=== PATIENT | female | born 1965 ===

== ENCOUNTER 2020-10-22 09:28 | Outpatient (REF) | payer OTHER, SELFPAY ==
[2020-10-23 12:52] LABS: BV Int Neg Control Negative (Negative); BV Int Pos Control Positive (Positive)
[2020-10-25 08:12] LABS: C. trachomatis RNA TMA NOT DETECTED (NOT DETECTED); N. gonorrhoeae RNA TMA NOT DETECTED (NOT DETECTED)
== END 2020-10-22 09:29 | disposition home or self-care (01) ==
LOC: HO.LAB 09:28
PROVIDERS: PCP Internal Medicine; Visit Provider Advanced Practice Midwife
DX: Z20.2 Contact with and (suspected) exposure to infections with a predominantly sexual mode of transmission (principal)
CPT/HCPCS: 87480; 87491; 87510; 87591; 87660

== ENCOUNTER → 2020-11-18 10:35 | Outpatient (BNVA) | payer OTHER, SELFPAY | PROVIDERS: PCP Internal Medicine; Visit Provider Internal Medicine Cardiovascular Disease | DX: I48.0 Paroxysmal atrial fibrillation (principal); R07.2 Precordial pain | CPT/HCPCS: 99202 ==

== ENCOUNTER → 2020-12-21 12:49 | Outpatient (REF) | payer OTHER, SELFPAY ==
--- NOTE | 2020-12-21 12:52 | CA_ITS ---
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 The visually estimated ejection fraction is between 60-65%. - No obvious valvular pathology seen on this study. Findings Left Ventricle Normal left ventricular cavity size. There is mildly increased left ventricular wall thickness. The left ventricular systolic function is normal. The visually estimated ejection fraction is between 60-65%. There is no evidence of regional wall motion abnormalities. Diastolic function is normal for age. E/E prime ratio is <8, consistent with normal filling pressures. Right Ventricle Normal right ventricular cavity size and systolic function. Atria The left atrium is normal in size. The right atrium is normal in size. Aortic Valve There is a normal trileaflet aortic valve. There is no aortic valve stenosis. There is no aortic valve regurgitation. Mitral Valve The mitral valve appears normal. There is trace mitral valve regurgitation. There is no mitral valve stenosis. Pulmonic Valve The pulmonic valve was not well visualized. There is trace pulmonic valve regurgitation. Tricuspid Valve Normal tricuspid valve structure. There is trace tricuspid valve regurgitation. The pulmonary artery systolic pressure is normal. Great Vessels The aortic annulus, sinuses of valsalva, and asc aorta are normal in size. Venous The inferior vena cava is normal in size and collapses greater than 50% with inspiration. Pericardium/Pleural There is no evidence of pericardial effusion. Prior Study Comparison No significant change compared to prior study dated: 04/18/2016. Recommendations, Care & Conclusions No obvious valvular pathology seen on this study. Measurements 2D Linear Measurements IVSd: 1.07 0.6-0.9/0.6-1.0 cm LVIDd: 3.98 3.9-5.3/4.2-5.9 cm LVIDd Index: 2.57 2.4-3.2/2.2-3.1 cm/m2 LVIDs: 2.52 2.0-3.6 cm LVPWd: 1.16 0.7-1.1 cm Ao Root: 3.50 2.1-3.5 cm LA Diam: 3.10 2.7-3.8/3.0-4.0 cm LAIDs Index: 2.00 1.5-2.3 cm/m2 LV Mass: 183.50 67-162/88-224 g LV Mass Index: 118.38 43-95/49-115 g/m2 LVOT Diam: 2.10 3.0+(-)1.3 cm Mitral Valve MV Pk E: 0.64 MV PK A: 0.94 MV Decel Time: 141.00 E/A: 0.70 E'Lateral: 9.38 E'Medial: 7.06 E/E' Med: 9.00 E/E' Lat: 6.80 PHT: 41.00 MVA PHT: 5.37 Decel [place]: 4.51 Aortic Valve AoV Pk Hao: 1.13 AoV Mn Hao: 0.78 AoV VTI: 0.22 AoV Pk Grad: 5.00 Aov Mn Grad: 3.00 CATIA Cont.VTI: 2.80 LVOT LVOT Pk Hao: 1.09 LVOT Mn Hao: 0.62 LVOT VTI: 0.18 LVOT Pk Grad: 5.00 LVOT Mn Grad: 2.00 LVOT Diam: 2.10 LVOT Area: 3.46 Diastolic Function MV Pk E: 0.64 MV Pk A: 0.94 E/A: 0.70 E'Medial: 7.06 E/E' Med: 9.00 E' Laterial: 9.38 E/E' Lat: 6.80 Tricuspid Valve TR Pk Hao: 1.83 TR Pk Grad: 13.00 RA Press: 3.00 RVSP: 16.00 Great Vessels Aorta Ao Root-2D: 3.50 2.0-3.7 cm Ao Asc: 2.80 2.1-3.4 cm Pulmonary Valve PV Pk Hao: 0.83 Peak PV Grad: 3.00 Updated in Other Vendor System with Status of Final Cristian Arteaga MD electronically signed on 12/22/2020 10:46:33 AM with status of Final
== END ==
LOC: HO.CARD 12:49
PROVIDERS: PCP Internal Medicine; Visit Provider Internal Medicine Cardiovascular Disease
DX: R07.2 Precordial pain (principal); I48.0 Paroxysmal atrial fibrillation
CPT/HCPCS: 93306

== ENCOUNTER → 2021-01-04 09:53 | Outpatient (REF) | payer OTHER, SELFPAY ==
--- NOTE | 2021-01-04 09:56 | CA_ITS ---
Acquisition Time: 2021-01-04 10:07:16 Total Exercise Time: 00:07:00 Test Indications: R07.2 - Precordial pain Medications: Protocol: KHUSHI Max HR: 160 BPM 96% of Pred: 165 BPM Max BP: 138/070 mmHG Max Work Load: 8.5 METS Exercise stress test using Khushi protocol total of 7 min. METS 8.50, TAPHR up to 96 %. Pt tolerated well, denies any anginal sx. EKG without arrhythmias, No ischemic changes seen during exercise or in recovery. Normotensive response to exercise. Test reviewed with Dr. Dover. Referred By: Bk Dover Overread By: Carmelina Ogden NP
== END ==
LOC: HO.CARD 09:53
PROVIDERS: PCP Internal Medicine; Visit Provider Internal Medicine Cardiovascular Disease
DX: R07.2 Precordial pain (principal); I48.0 Paroxysmal atrial fibrillation
CPT/HCPCS: 93016; 93017; 93018

== ENCOUNTER → 2021-01-13 09:36 | Outpatient (BNVA) | payer OTHER, SELFPAY | PROVIDERS: PCP Internal Medicine; Visit Provider Surgery | DX: C50.912 Malignant neoplasm of unspecified site of left female breast (principal) | CPT/HCPCS: 99212 ==

== ENCOUNTER → 2021-01-19 11:26 | Outpatient (BNVA) | payer OTHER, SELFPAY | PROVIDERS: PCP Internal Medicine; Visit Provider Advanced Practice Midwife ==

== ENCOUNTER → 2021-01-20 09:49 | Outpatient (BNVA) | payer OTHER, SELFPAY | PROVIDERS: PCP Internal Medicine; Visit Provider Nurse Practitioner Family | DX: R07.2 Precordial pain (principal); I48.0 Paroxysmal atrial fibrillation; F17.200 Nicotine dependence, unspecified, uncomplicated; Z71.6 Tobacco abuse counseling | CPT/HCPCS: 99212 ==

== ENCOUNTER 2021-03-02 14:09 | Outpatient (REF) | payer OTHER, SELFPAY ==
[2021-03-03 01:08] LABS: CT PCR NOT DETECTED (Not Detect.); NG PCR NOT DETECTED (Not Detect.)
[2021-03-06 06:07] LABS: HPV mRNA E6/E7 rflx Not Detected (Not Detected)
== END 2021-03-02 14:10 | disposition home or self-care (01) ==
LOC: HO.LAB 14:09
PROVIDERS: PCP Internal Medicine; Visit Provider Obstetrics & Gynecology
DX: Z12.4 Encounter for screening for malignant neoplasm of cervix (principal); Z11.51 Encounter for screening for human papillomavirus (HPV); Z11.3 Encounter for screening for infections with a predominantly sexual mode of transmission; N89.8 Other specified noninflammatory disorders of vagina; N93.0 Postcoital and contact bleeding
CPT/HCPCS: 87491; 87591; 87624; 88142; 99212

== ENCOUNTER 2021-03-26 09:49 | Outpatient (REF) | payer OTHER, SELFPAY ==
--- NOTE | ~2021-03-26 | MM_ITS ---
EXAMINATION: MM SCREENING DIGITAL BREAST TOMOSYNTHESIS, BILATERAL CLINICAL INFORMATION: Screening. Asymptomatic. Prior history left breast cancer, lumpectomy 09/25/2017 and subsequent radiation therapy. COMPARISON: Mammography: 09/10/2019, 01/10/2019, 06/21/2018, 09/25/2017, 09/08/2017, 08/28/2017 TECHNIQUE: Digital breast tomosynthesis is performed in both the craniocaudal and mediolateral oblique views along with computer-aided detection (CAD). Synthesized 2D images are generated from the tomosynthesis. FINDINGS: There are scattered areas of fibroglandular density (ACR BI-RADS breast composition Category b). There are post therapy changes on the left with mild reduced breast size, surgical clips, and stable scarring. Neither breast shows interval mass or architectural abnormality. There is stable intramammary node posterior upper outer right breast. Scattered bilateral isolated and grouped calcifications are again seen similar in number and distribution. There are no significant changes. MM/MM tomosynthesis screening BI IMPRESSION: No significant changes from prior studies. Post therapy changes left breast. ASSESSMENT: BI-RADS 2: Benign RECOMMENDATION: Routine annual mammography screening. This patient's information was entered into a reminder system with a target due date for their next mammogram.
== END 2021-03-26 09:50 | disposition home or self-care (01) ==
LOC: HO.MAMMO 09:49
PROVIDERS: Visit Provider Surgery
DX: Z12.31 Encounter for screening mammogram for malignant neoplasm of breast (principal)
CPT/HCPCS: 77063; 77067

== ENCOUNTER 2021-04-19 13:34 | Outpatient (REF) | payer OTHER, SELFPAY ==
--- NOTE | ~2021-04-19 | US_ITS ---
EXAMINATION: PELVIC ULTRASOUND CLINICAL INFORMATION: Bleeding COMPARISON: Previous pelvic ultrasound September 2019 TECHNIQUE: Transabdominal and transvaginal pelvic ultrasound was performed. Transvaginal exam was performed for better visualization of the and ovaries. FINDINGS: The uterus is retroverted and measures 8.6 x 3.7 x 4.4 cm in dimension. There is a 1.6 x 0.9 x 1 cm hypoechoic lesion anterior intramural uterine body suggestive of a fibroid. There is a small complex cyst with septation in the posterior uterine body adjacent to the endometrium. No other focal uterine lesion is seen. Endometrial thickness is normal measuring 0.5 cm. There are nabothian cysts in the cervix. The ovaries are normal-appearing. The right ovary measures 2.5 x 1.2 x 0.9 cm. Left ovary measures 2.1 x 1.1 x 1.1 cm. There is no fluid in the pelvis. US/US pelvic and transvaginal IMPRESSION: Small uterine fibroid. Small complex submucosal cyst in the anterior uterine body adjacent to the endometrium.
== END 2021-04-19 13:35 | disposition home or self-care (01) ==
LOC: HO.US 13:34
PROVIDERS: Visit Provider Obstetrics & Gynecology
DX: N93.0 Postcoital and contact bleeding (principal)
CPT/HCPCS: 76830; 76856

== ENCOUNTER → 2021-04-28 11:44 | Outpatient (BNVA) | payer OTHER, SELFPAY | PROVIDERS: PCP Internal Medicine; Visit Provider Obstetrics & Gynecology ==

== ENCOUNTER → 2021-05-03 11:02 | Outpatient (BNVA) | payer OTHER, SELFPAY | PROVIDERS: PCP Internal Medicine; Visit Provider Obstetrics & Gynecology | DX: N93.0 Postcoital and contact bleeding (principal) | CPT/HCPCS: 99212 ==

== ENCOUNTER 2021-05-07 10:42 | Day surgery (SDC) | payer OTHER, SELFPAY ==
--- NOTE | 2021-05-06 09:13 | HO.ANESPROP2 ---
Documented by User: Salud Edith 05/06/21 09:14 HPI - Anesthesia Eval Consult details Narrative: 56yo F for D&C Diagnostic Hysteroscopy,poss polypectomy/myomectomy and ECC PMFSH Active Problems Active Problems: All Active Problems (Updated 04/28/21 @ 12:12 by Henry Frias MD) Postcoital bleeding (Acute) Vaginal discharge (Acute) Invasive ductal carcinoma of left breast (Acute) Paroxysmal atrial fibrillation (Acute) Precordial chest pain (Acute) Potential exposure to STD (Acute) Well woman exam with routine gynecological exam (Acute) Past Medical History Medical History Depression Insomnia Invasive ductal carcinoma of left breast Paroxysmal atrial fibrillation Family History Family History Father Liver cancer Mother Heart disease Diabetes mellitus HTN (hypertension) CVD (cardiovascular disease) Brother HTN (hypertension) CVD (cardiovascular disease) Surgical History Surgical History History of lumpectomy of left breast Social History Social History Alcohol intake: never Patient Tobacco Use Status: Current everyday Tobacco user Tobacco use type: Cigarette Cigarettes Per Day: 4 Second Hand Smoke Exposure: No Use of substances other than those prescribed or required for medical reasons: No Are you DNR?: No Advance Directives: No Advance Directives Information Provided: Yes Advance Directives on File: No Gender identity: female Meds Allergies Allergy/AdvReac Type Severity Reaction Status Date / Time No Known Allergies Allergy Verified 05/03/21 11:21 [No Known Allergies*] Home Medications Medication Instructions Recorded Confirmed Last Taken Type ibuprofen 600 mg tablet mg PO 10/22/20 01/20/21 Unknown History sertraline 50 mg tablet 50 mg PO DAILY 10/22/20 01/20/21 Unknown History Exam Exam Date and Time: May 06, 2021 0913 Narrative Narrative: EKG 10/2020 SR, no acute ST/ T wave abn, rate 81. Stress 12/2020 exercise 7 min without anginal symptoms or EKG changes of ischemia. Echo 12/2020 EF 60-65%, no valve or wall motion abnormalities. Assessment and Plan Assessment Anesthesia Assessment: Chart Reviewed Documented by User: Steffi Gonsales 05/07/21 11:12 PMFSH Past Medical History Medical History Depression Insomnia Invasive ductal carcinoma of left breast Paroxysmal atrial fibrillation Family History Family History Father Liver cancer Mother Heart disease Diabetes mellitus HTN (hypertension) CVD (cardiovascular disease) Brother HTN (hypertension) CVD (cardiovascular disease) Surgical History Surgical History History of lumpectomy of left breast Social History Social History Alcohol intake: never Patient Tobacco Use Status: Current everyday Tobacco user Tobacco use type: Cigarette Cigarettes Per Day: 4 Second Hand Smoke Exposure: No Use of substances other than those prescribed or required for medical reasons: No Are you DNR?: No Advance Directives: No Advance Directives Information Provided: Yes Advance Directives on File: No Gender identity: female Meds Allergies Allergy/AdvReac Type Severity Reaction Status Date / Time No Known Allergies Allergy Verified 05/03/21 11:21 [No Known Allergies*] Home Medications Medication Instructions Recorded Confirmed Last Taken Type ibuprofen 600 mg tablet mg PO 10/22/20 01/20/21 Unknown History sertraline 50 mg tablet 50 mg PO DAILY 10/22/20 01/20/21 Unknown History Exam Airway Mallampati Class: II TM Dist: >3cm Neck ROM: Full Assessment and Plan Assessment Anesthesia Assessment: Anesthesia Plan Discussed and Chart Reviewed Final Anesthetic Review NPO: Yes ASA Class: III Final Preanesthetic Review: No Changes in Pt Med Stat, Meds/Allgs Chart Reviewed, Consent Obtained/Reviewed and Anes Risks/Benef Reviewed Patient Risk: Intermediate Procedure Risk: Low Assessment/Block/Sedation in SS: Assess/Block/Sedation-SS Anesthetic Plan Anesthetic Plan: MAC: Disposition: Standard PACU
[2021-05-07 10:55] VITALS: BP 111/62; PULSE 97; RESP 16; TEMP 36.4; O2SAT 98; BMI 28.0
[2021-05-07 11:03] LABS: UPreg QC Valid YES; Urine Pregnancy NEGATIVE (NEGATIVE)
[2021-05-07] MEDS: Lactated Ringers 1,000 ML 100 ML IVCONT (11:06)
--- NOTE | 2021-05-07 11:10 | MHC.SHP ---
Pre-Procedural Eval Section A Date of Service: 05/07/21 The patient is an INPATIENT: No Changes since office visit: No Cold of Flu in the past 2 weeks, No New Medical Problems, No Changes in Medication and No Patient answered all questions The History & Physical has been completed within 30 days and I have reviewed it.: Yes Section B Chief Complaint: postcoital and contact bleeding Allergies: Allergies Allergy/AdvReac Type Severity Reaction Status Date / Time No Known Allergies Allergy Verified 05/03/21 11:21 [No Known Allergies*] Plan Diagnosis/Plan: Unchanged I have reviewed the history and physical and performed a pertinent physical examination on my patient. No changes have occurred unless specified.
--- NOTE | 2021-05-07 11:43 | P.BOP_ITS ---
Brief Operative Note Date of Service: 05/07/21 Pre-op diagnosis: Postcoital bleeding Post-op diagnosis: same (Normal endometrial cavity/endocervical can) Procedure: Hysteroscopy D&C, ECC Surgeon: Henry Frias MD Anesthesia: MAC Was an Nuclear Chemistry Technician used for this Procedure?: No Estimated blood loss (mL): 0 Pathology: other (Endometrial Scrapping. Endocervical scrapings) Condition: stable Disposition: PACU
[2021-05-07 11:45] VITALS: BP 116/71; PULSE 85; RESP 16; TEMP 36.2; O2SAT 98
--- NOTE | 2021-05-07 11:45 | P.OP_ITS ---
Operative Note Operative Note Date of Service: 05/07/21 Narrative: Preop Diagnosis: Post coital bleeding, abnormal endometrium by ultrasound Operation: Diagnostic Hysteroscopy, Dilataion & Curettage and ECC Post Op Diagnosis: Normal endometrial cavity/endocervical cannot QBL: Minimal Anesthesia: MAC Surgeon: Henry Frias MD Senior C Developer: None Complication: None Pathology: Endometrial Scrapings, endocervical scraping Procedure: The patient was put in the dorsal lithotomy position, scrubbed, and draped in the usual manner. A sterile speculum was inserted in the patient's vagina. The anterior lip of the cervix was grasped with a single tooth tenaculum. The cervix was dilated up to 5 mm, then the scope was inserted in the patient's uterus. Inspection revealed normal endocervical/endometrial cavity. Sharp curettings was carrying the on followed by endocervical curettage. At the end of the procedure, all instruments were taken out of the patient uterine and vaginal cavity. The single tooth tenaculum was removed and homeostasis was assured using pressure,. The patient tolerated the procedure well and was transferred to the PACU in a stable condition.
[2021-05-07 12:00] VITALS: BP 116/77; PULSE 74; RESP 16; TEMP 36.2; O2SAT 100
[2021-05-07] MEDS: Acetaminophen 325 MG TABLET 650 MG PO (12:01)
== END 2021-05-07 12:54 ==
LOC: HO.SSS 10:43
PROVIDERS: PCP Internal Medicine; Visit Provider Obstetrics & Gynecology
PROC: 0UDB8ZX Extraction of Endometrium, Via Natural or Artificial Opening Endoscopic, Diagnostic (ICD-10-PCS; CPT 58558; principal; 2021-05-07 11:30)
DX: N93.0 Postcoital and contact bleeding (principal); N85.02 Endometrial intraepithelial neoplasia [EIN]; I48.0 Paroxysmal atrial fibrillation; Z85.3 Personal history of malignant neoplasm of breast; F17.210 Nicotine dependence, cigarettes, uncomplicated; Z79.899 Other long term (current) drug therapy
CPT/HCPCS: 58558; 81025; 88305; J1100; J2250; J2405; J3010

== ENCOUNTER → 2021-05-26 11:28 | Outpatient (BNVA) | payer OTHER, SELFPAY | PROVIDERS: PCP Internal Medicine; Visit Provider Obstetrics & Gynecology ==

== ENCOUNTER 2021-07-07 08:08 | Outpatient (REF) | payer OTHER, SELFPAY ==
--- NOTE | ~2021-07-07 | XR_ITS ---
EXAMINATION: XR CHEST CLINICAL INFORMATION: Back pain. COMPARISON: Chest CT dated 12/08/2015. TECHNIQUE: 2 views of the chest were obtained. FINDINGS: The lungs are clear. The cardiomediastinal silhouette is normal in size. There is no pleural effusion or pneumothorax. No acute osseous abnormality. XR/XR chest 2V IMPRESSION: No acute cardiopulmonary findings.
[2021-07-07 08:47] LABS: MANUAL DIFF FLAG NO
[2021-07-07 08:55] LABS: Basophils Percent Auto 0.6 % (0-2); Eosinophils Absolute Auto 0.2 X10*3/uL (0.0-0.4); Eosinophils Percent Auto 2.5 % (0-4); Hematocrit 35.6 % (37-47); Hemoglobin 12.2 g/dl (12.0-16.0); Imm Gran Abs Auto 0.03 X10*3/uL (0.00-0.03); Imm Gran Pct Auto 0.4 % (0.0-0.4); Immature Retic Fraction 8.5 % (3.0-15.9); Lymphocytes Absolute Auto 1.4 X10*3/uL (1.2-4.9); Lymphocytes Percent Auto 20.7 % (20-40); Mean Corpuscular HGB Conc 34.3 g/dl (31.0-35.0); Mean Corpuscular Hemoglobin 29.8 pg (27.0-33.0); Mean Platelet Volume 10.1 fL (9.4-12.3); Monocytes Absolute Auto 0.5 X10*3/uL (0.1-1.2); Monocytes Percent Auto 7.7 % (2-11); Neutrophils Absolute Auto 4.6 X10*3/uL (2.0-8.3); Neutrophils Percent Auto 68.1 % (45-73); Platelet Count 267 X10*3/uL (160-400); Red Blood Count 4.09 X10*6/uL (4.20-5.50); Red Cell Distribution Width 11.9 % (11.0-16.0); Retic HGB Equivalent 32.8 pg (30.0-35.0); Reticulocyte Percent 1.9 % (0.5-1.8); Reticulocytes Absolute 0.079 X10*6/uL (0.026-0.095); White Blood Count 6.7 X10*3/uL (4.8-10.8)
[2021-07-07 09:29] LABS: Alanine Aminotransferase 17 U/L (0-31); Albumin Level 4.1 g/dL (3.5-5.0); Alkaline Phosphatase 107 U/L (39-117); Anion Gap 11 (12-20); Aspartate Amino Transferase 15 U/L (5-31); Bilirubin Total 0.6 mg/dL (0.0-1.0); Blood Urea Nitrogen 12 mg/dL (9-16); Calcium 9.8 mg/dL (8.4-10.2); Carbon Dioxide 26 mmol/L (22-29); Chloride 108 mmol/L (96-108); Cholesterol 218 mg/dL; Estimated Glomerular Filt Rate > 60; Glucose Random 102 mg/dL (60-115); HDL Cholesterol 43 mg/dL; Iron 107 mcg/dL (30-160); LDL Cholesterol Calculated 139 mg/dl; Percent Iron Saturation 30 % (15-50); Potassium 4.4 mmol/L (3.3-5.1); Sodium 141 mmol/L (135-145); Total Iron Binding Capacity 358 mcg/dL (228-428); Total Protein 6.6 g/dL (6.5-8.0); Triglycerides 182 mg/dL; Unsaturated Iron Binding 251 ug/dL
[2021-07-07 09:37] LABS: Ferritin 55 ng/mL (10-250); Free T4 (Free Thyroxine) 0.91 ng/dL (0.71-1.85); Thyroid Stimulating Hormone 0.75 uIU/mL (0.32-4.0); Vitamin D 25-OH Total 28.5 ng/mL (>30)
[2021-07-07 09:53] LABS: Folate 15.2 ng/mL (> or = 4.0); Vitamin B12 916 pg/mL (200-900)
== END 2021-07-07 08:09 | disposition home or self-care (01) ==
LOC: HO.LAB 08:08
PROVIDERS: PCP Internal Medicine; Visit Provider Internal Medicine
DX: M54.6 Pain in thoracic spine (principal); E78.00 Pure hypercholesterolemia, unspecified
CPT/HCPCS: 36415; 71046; 80053; 80061; 82306; 82607; 82728; 82746; 83540; 84439; 84443; 85025; 85045

== ENCOUNTER → 2021-11-10 08:16 | Outpatient (BNVA) | payer OTHER, SELFPAY | PROVIDERS: PCP Internal Medicine; Visit Provider Advanced Practice Midwife ==

== ENCOUNTER 2022-03-30 08:08 | Outpatient (REF) | payer OTHER, SELFPAY ==
--- NOTE | ~2022-03-30 | MM_ITS ---
EXAMINATION: MM SCREENING DIGITAL BREAST TOMOSYNTHESIS, BILATERAL CLINICAL INFORMATION: Screening. Asymptomatic. Status post left breast lumpectomy. COMPARISON: Mammography: April 03, 2021 and studies dating back to December 11, 2015 TECHNIQUE: Digital breast tomosynthesis is performed in both the craniocaudal and mediolateral oblique views along with computer-aided detection (CAD). Synthesized 2D images are generated from the tomosynthesis. FINDINGS: There are scattered areas of fibroglandular density (ACR BI-RADS breast composition Category b). There are no new significant masses, abnormal calcifications, or other abnormalities. Architecture distortion from previous left breast lumpectomy again seen. MM/MM tomosynthesis screening BI IMPRESSION: There are no significant changes from prior study. ASSESSMENT: BI-RADS 2: Benign RECOMMENDATION: Routine annual mammography screening. This patient's information was entered into a reminder system with a target due date for their next mammogram.
== END 2022-03-30 08:09 | disposition home or self-care (01) ==
LOC: HO.MAMMO 08:08
PROVIDERS: Visit Provider Internal Medicine
DX: Z12.31 Encounter for screening mammogram for malignant neoplasm of breast (principal)
CPT/HCPCS: 77063; 77067

== ENCOUNTER 2022-07-01 08:45 | Outpatient (REF) | payer OTHER, SELFPAY ==
--- NOTE | ~2022-07-01 | XR_ITS ---
EXAMINATION: XR KNEE, LEFT CLINICAL INFORMATION: Left knee pain. COMPARISON: None TECHNIQUE: AP and lateral views of the left knee. FINDINGS: Mild medial compartment joint space narrowing with tiny marginal osteophytes. No acute fracture or dislocation. No concerning lytic or blastic osseous lesion. No significant joint effusion. XR/XR knee LT 2V IMPRESSION: Mild medial compartment arthrosis.
--- NOTE | ~2022-07-01 | XR_ITS ---
EXAMINATION: XR HAND, RIGHT CLINICAL INFORMATION: Finger pain. COMPARISON: None TECHNIQUE: PA, lateral, and oblique views of the right hand. FINDINGS: No acute fracture or dislocation. Normal carpal alignment. No significant joint space narrowing. Tiny marginal osteophytes within the distal interphalangeal joints. No osseous erosion. No abnormal soft tissue calcification. XR/XR hand RT 2V IMPRESSION: Minimal degenerative arthritis within the distal interphalangeal joints.
[2022-07-01 09:04] LABS: MANUAL DIFF FLAG NO
[2022-07-01 09:20] LABS: Basophils Percent Auto 0.6 % (0-2); Eosinophils Absolute Auto 0.1 X10*3/uL (0.0-0.4); Eosinophils Percent Auto 1.9 % (0-4); Hematocrit 34.7 % (37.0-47.0); Imm Gran Abs Auto 0.06 X10*3/uL (0.00-0.03); Imm Gran Pct Auto 0.9 % (0.0-0.4); Lymphocytes Absolute Auto 1.5 X10*3/uL (1.2-4.9); Lymphocytes Percent Auto 22.4 % (20-40); Mean Corpuscular HGB Conc 34.6 g/dl (31.0-35.0); Mean Corpuscular Hemoglobin 29.3 pg (27.0-33.0); Mean Corpuscular Volume 84.6 fL (80.0-98.0); Mean Platelet Volume 10.2 fL (9.4-12.3); Monocytes Absolute Auto 0.5 X10*3/uL (0.1-1.2); Monocytes Percent Auto 7.9 % (2-11); Neutrophils Absolute Auto 4.5 x10*3/uL (2.0-8.3); Neutrophils Percent Auto 66.3 % (45-73); Platelet Count 270 X10*3/uL (160-400); Red Cell Distribution Width 11.6 % (11.0-16.0); White Blood Count 6.7 X10*3/uL (4.8-10.8)
[2022-07-01 09:32] LABS: Estimated Average Glucose 111 mg/dL; Hemoglobin A1c % 5.5 %
[2022-07-01 09:33] LABS: Alanine Aminotransferase 18 U/L (0-31); Albumin Level 4.1 g/dL (3.5-5.0); Alkaline Phosphatase 111 U/L (39-117); Anion Gap 12 (12-20); Aspartate Amino Transferase 18 U/L (5-31); Bilirubin Total 0.3 mg/dL (0.0-1.0); Blood Urea Nitrogen 12 mg/dL (9-16); Calcium 9.4 mg/dL (8.4-10.2); Carbon Dioxide 26 mmol/L (22-29); Chloride 104 mmol/L (96-108); Cholesterol 203 mg/dL; Estimated Glomerular Filt Rate > 60; Glucose Random 101 mg/dL (60-115); HDL Cholesterol 40 mg/dL; LDL Cholesterol Calculated 119 mg/dl; Potassium 4.3 mmol/L (3.3-5.1); Sodium 138 mmol/L (135-145); Total Protein 6.7 g/dL (6.5-8.0); Triglycerides 224 mg/dL
[2022-07-01 09:55] LABS: Free T4 (Free Thyroxine) 1.02 ng/dL (0.71-1.85); Thyroid Stimulating Hormone 0.72 uIU/mL (0.32-4.0); Vitamin D 25-OH Total 36.9 ng/mL (>30)
[2022-07-01 10:15] LABS: Folate 17.8 ng/mL (> or = 4.0); Vitamin B12 462 pg/mL (200-900)
== END 2022-07-01 08:46 | disposition home or self-care (01) ==
LOC: HO.XRAY 08:45
PROVIDERS: PCP Internal Medicine; Visit Provider Internal Medicine
DX: M79.644 Pain in right finger(s) (principal); M25.562 Pain in left knee; K21.9 Gastro-esophageal reflux disease without esophagitis; R73.02 Impaired glucose tolerance (oral); E78.00 Pure hypercholesterolemia, unspecified
CPT/HCPCS: 36415; 73120; 73560; 80053; 80061; 82306; 82607; 82746; 83036; 84439; 84443; 85025

== ENCOUNTER 2022-08-09 21:36 | Emergency (ER) | payer OTHER, SELFPAY ==
--- NOTE | ~2022-08-09 | XR_ITS ---
EXAMINATION: XR CHEST CLINICAL INFORMATION: Chest pain COMPARISON: 07/07/2021 TECHNIQUE: Frontal view of the chest was obtained. FINDINGS: No significant abnormality is noted involving the heart, lungs, mediastinum, bony thorax or soft tissues. XR/XR chest 1V IMPRESSION: Unremarkable examination.
[2022-08-09 22:16] VITALS: BP 175/106; PULSE 91; RESP 16; TEMP 36.6; O2SAT 99; BMI 28.3
--- NOTE | 2022-08-09 22:20 | ECG_ITS ---
Test Reason : R/O CARDIAC Blood Pressure : / mmHG Vent. Rate : 086 BPM Atrial Rate : 086 BPM P-R Int : 126 ms QRS Dur : 084 ms QT Int : 352 ms P-R-T Axes : 046 014 016 degrees QTc Int : 421 ms Normal sinus rhythm Normal ECG No significant changes seen Referred By: Generic ED Physician Electronically Signed By:ZENY TORRES MD
[2022-08-09 22:43] LABS: MANUAL DIFF FLAG NO
[2022-08-09 22:45] LABS: Basophils Absolute Auto 0.1 X10*3/uL (0.0-0.2); Basophils Percent Auto 0.6 % (0-2); Eosinophils Absolute Auto 0.1 X10*3/uL (0.0-0.4); Eosinophils Percent Auto 1.1 % (0-4); Hematocrit 39.5 % (37.0-47.0); Hemoglobin 13.3 g/dl (12.0-16.0); Imm Gran Abs Auto 0.04 X10*3/uL (0.00-0.03); Imm Gran Pct Auto 0.4 % (0.0-0.4); Lymphocytes Absolute Auto 1.8 X10*3/uL (1.2-4.9); Lymphocytes Percent Auto 18.1 % (20-40); Mean Corpuscular HGB Conc 33.7 g/dl (31.0-35.0); Mean Corpuscular Hemoglobin 28.8 pg (27.0-33.0); Mean Corpuscular Volume 85.5 fL (80.0-98.0); Mean Platelet Volume 9.6 fL (9.4-12.3); Monocytes Absolute Auto 0.6 X10*3/uL (0.1-1.2); Neutrophils Absolute Auto 7.2 x10*3/uL (2.0-8.3); Neutrophils Percent Auto 73.8 % (45-73); Platelet Count 274 X10*3/uL (160-400); Red Blood Count 4.62 X10*6/uL (4.20-5.50); Red Cell Distribution Width 11.8 % (11.0-16.0); White Blood Count 9.8 X10*3/uL (4.8-10.8)
[2022-08-09 22:57] LABS: Anion Gap 20 (12-20); Blood Urea Nitrogen 15 mg/dL (9-16); Calcium 9.8 mg/dL (8.4-10.2); Carbon Dioxide 19 mmol/L (22-29); Chloride 106 mmol/L (96-108); Creatinine Clr Calc Pharmacy 66.9; Estimated Glomerular Filt Rate > 60; Glucose Random 103 mg/dL (60-115); Potassium 3.9 mmol/L (3.3-5.1); Sodium 141 mmol/L (135-145)
[2022-08-09 23:05] LABS: Troponin-I High Sensitivity < 3.5 ng/L (<3.5-17.0)
== END 2022-08-10 01:40 | disposition left against medical advice (07) ==
PROVIDERS: Emergency Provider Emergency Medicine
DX: R07.89 Other chest pain (principal); M54.50 Low back pain, unspecified; R10.9 Unspecified abdominal pain; Z79.899 Other long term (current) drug therapy
CPT/HCPCS: 36415; 71045; 80048; 84484; 85025; 93005; 99283

== ENCOUNTER → 2022-08-22 09:59 | Outpatient (REF) | payer OTHER, SELFPAY ==
--- NOTE | 2022-08-22 10:02 | CA_ITS ---
Acquisition Time: 2022-08-22 10:21:10 Total Exercise Time: 00:08:01 Test Indications: PRECORDIAL PAIN Medications: Protocol: KHUSHI Max HR: 171 BPM 104% of Pred: 164 BPM Max BP: 146/088 mmHG Max Work Load: 10.1 METS Exercise stress test with exercise with exercise 8 min 1 sec of Khushi protocol, achieing 104% MPHR, 10.1 METs without anginal symptoms, with isolated PVC, with normotensive response to exercise, without EKG changes meeting criteria for ischemia, with minimal J point depression with upsloping STs. Test reviewed with Dr Arteaga Referred By: Marlyn Krause Overread By: NABOR HENAO
== END ==
LOC: HO.CARD 09:59
PROVIDERS: PCP Internal Medicine; Visit Provider Internal Medicine
DX: R07.2 Precordial pain (principal)
CPT/HCPCS: 93017

== ENCOUNTER 2022-11-14 09:04 | Outpatient (REF) | payer OTHER, SELFPAY ==
[2022-11-15 13:45] LABS: BV Int Neg Control Negative (Negative); BV Int Pos Control Positive (Positive)
== END 2022-11-14 09:05 | disposition home or self-care (01) ==
LOC: HO.LAB 09:04
PROVIDERS: PCP Internal Medicine; Visit Provider Advanced Practice Midwife
DX: Z01.419 Encounter for gynecological examination (general) (routine) without abnormal findings (principal); R10.2 Pelvic and perineal pain; Z80.3 Family history of malignant neoplasm of breast; Z85.3 Personal history of malignant neoplasm of breast
CPT/HCPCS: 87480; 87510; 87660

== ENCOUNTER 2022-12-02 00:41 | Emergency (ER) | payer OTHER, SELFPAY ==
--- NOTE | ~2022-12-02 | CT_ITS ---
EXAMINATION: CT ABDOMEN AND PELVIS WITHOUT CONTRAST CLINICAL INFORMATION: Right-sided abdominal pain with elevated white blood cell count. COMPARISON: None TECHNIQUE: Multidetector volumetric imaging was performed from the superior aspect of the liver through the pubic symphysis. Sagittal and coronal reformatted images were obtained on the technologist's workstation. This CT examination was performed using dose optimization techniques as appropriate, variously including the following: *Automated exposure control *Adjustment of mA and/or kV according to patient size (this includes techniques or standardized protocols for targeted exams where dose is matched to indication/reason for exam; i.e. extremities or head) *Use of iterative reconstruction technique DLP: 430 mGy-cm FINDINGS: LUNG BASES: The visualized lung bases are unremarkable. LIVER, GALLBLADDER, AND BILIARY TREE: The liver is normal in size, shape, and attenuation. No focal hepatic lesion or biliary ductal dilatation is present. The gallbladder is unremarkable with no evidence of radiopaque gallstones, gallbladder wall thickening, or obvious pericholecystic inflammatory changes. PANCREAS: Unremarkable. SPLEEN: Unremarkable. ADRENAL GLANDS: Unremarkable. KIDNEYS AND URETERS: The kidneys are normal in size, shape, and attenuation. No hydronephrosis, hydroureter, or calculi seen. No perinephric stranding. BLADDER: Unremarkable. GASTROINTESTINAL TRACT: Fluid-filled small bowel at the upper limits of normal in caliber. There is a gradual transition to normal caliber within the distal ileum in the right pelvis, as seen on series 3, images 52-58, and coronal images 45-50. Fluid also present within the right colon. The transverse and left colon is decompressed. Small sliding-type hiatal hernia. Stomach otherwise unremarkable. ABDOMINAL WALL: No significant hernia is appreciated. LYMPH NODES: Normal. VASCULAR: Unremarkable. PELVIC VISCERA: Uterus and ovaries unremarkable. Small pelvic free fluid. OSSEOUS STRUCTURES: Unremarkable. CT/CT abdomen pelvis wo IV con IMPRESSION: Fluid-filled small bowel at the upper limits of normal in caliber may reflect a partial bowel obstruction at the level of the distal ileum, versus enteritis and/or ileus. Fleischner guidelines were followed.
[2022-12-02 00:50] VITALS: BP 169/93; PULSE 91; RESP 17; TEMP 37.1; O2SAT 97
[2022-12-02 00:52] VITALS: BP 160/100; PULSE 99; RESP 20; O2SAT 98; BMI 27.8
--- NOTE | 2022-12-02 00:55 | ED_ITS ---
HPI - Abdominal Pain General Chief Complaint: Abdominal Pain Stated Complaint: ABD PAIN N/V X1HOUR Time Seen by Provider: 12/02/22 00:54 Source: patient Mode of arrival: ambulatory Limitations: no limitations History of Present Illness HPI narrative: Patient history of anxiety with multiples CT scan the past negative comes here with diffuse abdominal pain with nausea and vomiting prior to arrival. Patient vomited about 5 times has diffuse abdominal pain radiating to the right flank area, no fever no chills patient has similar complaints in the past no urinary complaints had loose bowels yesterday no other family member sick no seafood intake no recent travel Related Data Home Medications Medication Instructions Recorded Confirmed sertraline 50 mg tablet 50 mg PO DAILY 10/22/20 07/01/22 ibuprofen 600 mg tablet mg PO .QD PRN pain 06/25/21 07/01/22 lorazepam 0.5 mg tablet 0.5 mg PO BEDTIME PRN 06/25/21 07/01/22 zolpidem 5 mg tablet (Ambien) 5 mg PO BEDTIME PRN 05/17/22 07/01/22 omeprazole 20 mg capsule,delayed 20 mg PO DAILY 07/01/22 07/01/22 release Previous Rx's Medication Instructions Recorded sennosides 8.6 mg-docusate sodium 2 tab-cap PO BEDTIME #60 tabs 06/06/22 50 mg tablet (Senna-S) dicyclomine 20 mg tablet 20 mg PO QID PRN abdominal pain 12/02/22 #20 tabs ondansetron 4 mg disintegrating 4 mg PO Q6-8H PRN nausea and 12/02/22 tablet vomiting #7 tabs Allergies Allergy/AdvReac Type Severity Reaction Status Date / Time No Known Allergies Allergy Verified 11/14/22 09:09 [No Known Allergies*] Review of Systems Review of Systems Yes all other systems are reviewed and are negative [facility] Past Medical History Medical History Carpal tunnel syndrome of left wrist Generalized anxiety disorder GERD (gastroesophageal reflux disease) Hypercholesterolemia Insomnia Invasive ductal carcinoma of left breast Lumbar degenerative disc disease Neuropathy of left ulnar nerve at wrist Paroxysmal atrial fibrillation Recurrent major depression Renal calculus, left Right ovarian cyst Stress incontinence Tobacco abuse Tubular adenoma of colon Surgical History History of lumpectomy of left breast Family History Family History Father Liver cancer Substance abuse Mother Heart disease Diabetes mellitus HTN (hypertension) CVD (cardiovascular disease) Brother HTN (hypertension) CVD (cardiovascular disease) Substance abuse Sister Breast cancer CVD (cardiovascular disease) Social History Social History Housing: Apartment Alcohol intake: never Patient Tobacco Use Status: Former Tobacco user Tobacco use type: Cigarette Cigarettes Per Day: 4 Years Smoked: quit 05/2022 Smoked in Last 30 Days: Yes e-Cigarette/Vaping Use: Never Used Second Hand Smoke Exposure: No Use of substances other than those prescribed or required for medical reasons: No Advance Directives: No Advance Directives Information Provided: No Patient : No service: No Current occupational status: employed Gender identity: Female Cognitive needs: No Hearing needs: No Vision needs: Yes Physical Exam ED Vital Signs: Vital Signs - 24 hr 12/02/22 00:52 12/02/22 00:50 12/02/22 02:13 Temperature 98.7 F Pulse Rate 99 91 82 Respiratory Rate 20 17 20 Blood Pressure 160/100 H 169/93 H 153/86 H Pulse Oximetry 98 97 98 Oxygen Delivery Method Room Air Room Air Room Air 12/02/22 04:28 Temperature Pulse Rate 73 Respiratory Rate 15 Blood Pressure 119/53 L Pulse Oximetry 98 Oxygen Delivery Method Room Air BMI result Body Mass Index 27.8 Appearance: Alert. Oriented X3. No acute distress. Eyes: No pallor or icterus ENT: Pharynx normal. Oral Mucosa moist Neck: Normal inspection. Neck supple. CVS: Normal heart rate and rhythm. Pulses normal. Respiratory: No respiratory distress. Equal air entry bilateral, no wheezing/rales/rhonchi Abdomen: Soft diffuse tenderness no rebound or guarding. Bowel sounds are present, no mass palpable, no CVA tenderness Skin: Skin warm and dry. Normal skin color. Normal skin turgor. Extremities: No lower extremity edema. No calf tenderness Neuro: Oriented X 3. No motor deficit. Medical Decision Making Medical Decision Making MDM Narrative: Patient with gastroenteritis CT scan essentially negative showing some dilated bowel loops secondary to inflammation patient feeling much better now taking p.o. fluids discharge patient home Differential Diagnosis Colitis/enteritis/diverticulitis/pancreatitis/kidney stone/UTI Lab Data [facility] Lab Attestation statement: I reviewed the patient's lab results. 12/02/22 00:57 12/02/22 00:57 Labs: Lab Results 12/02/22 12/02/22 Range/Units 00:57 00:57 WBC 15.4 H (4.8-10.8) X10*3/uL RBC 4.75 (4.20-5.50) X10*6/uL Hgb 13.6 (12.0-16.0) g/dl Hct 39.0 (37.0-47.0) % MCV 82.1 (80.0-98.0) fL MCH 28.6 (27.0-33.0) pg MCHC 34.9 (31.0-35.0) g/dl RDW 12.2 (11.0-16.0) % Plt Count 286 (160-400) X10*3/uL MPV 9.8 (9.4-12.3) fL Immature Gran % (Auto) 0.6 H (0.0-0.4) % Neut % (Auto) 79.9 H (45-73) % Lymph % (Auto) 12.8 L (20-40) % [place] % (Auto) 5.1 (2-11) % Eos % (Auto) 1.2 (0-4) % Baso % (Auto) 0.4 (0-2) % Lymph # (Auto) 2.0 (1.2-4.9) X10*3/uL [place] # (Auto) 0.8 (0.1-1.2) X10*3/uL Eos # (Auto) 0.2 (0.0-0.4) X10*3/uL Baso # (Auto) 0.1 (0.0-0.2) X10*3/uL Abs Immat Gran (auto) 0.09 H (0.00-0.03) X10*3/uL Absolute Neuts (auto) 12.3 H (2.0-8.3) x10*3/uL Absolute Nucleated RBC 0.000 (0.0-0.012) X10*3/uL Nucleated RBC % (auto) 0.0 (0.0-0.2) /100WBC Sodium 142 (135-145) mmol/L Potassium 4.1 (3.3-5.1) mmol/L Chloride 106 (96-108) mmol/L Carbon Dioxide 22 (22-29) mmol/L Anion Gap 18 (12-20) BUN 16 (9-16) mg/dL Creatinine 0.95 (0.5-1.4) mg/dL Estim Creat Clear Calc 53.1 Estimated GFR > 60 Random Glucose 131 H (60-115) mg/dL Calcium 10.0 (8.4-10.2) mg/dL Total Bilirubin 0.4 (0.0-1.0) mg/dL AST 25 (5-31) U/L ALT 20 (0-31) U/L Alkaline Phosphatase 122 H (39-117) U/L Total Protein 7.4 (6.5-8.0) g/dL Albumin 4.5 (3.5-5.0) g/dL Medications Administered Discontinued Medications Generic Name Dose Route Start Last Admin Trade Name Freq PRN Reason Stop Dose Admin Dicyclomine HCl 20 mg 12/02/22 01:04 12/02/22 01:30 Dicyclomine Hcl 10 Mg Capsule PO 12/02/22 01:05 20 mg ONCE ONE Administration Hydromorphone HCl 2 mg 12/02/22 02:08 12/02/22 02:25 Hydromorphone Hcl 2 Mg/Ml Vial IM 12/02/22 02:09 2 mg ONCE ONE Administration Protocol Ondansetron HCl 4 mg 12/02/22 00:46 12/02/22 01:31 Ondansetron Odt 4 Mg Tab.Rapdis SUBLINGUAL 12/02/22 00:47 4 mg ONCE ONE Administration Discharge Plan Discharge Clinical Impression: Gastroenteritis Patient Disposition: Home, Self-Care Instructions: Gastroenteritis (ED) Additional Instructions: Drink plenty of fluid Medicine for the nausea and pain as advised Follow with PCP if not better Prescriptions: New dicyclomine 20 mg tablet 20 mg PO QID PRN (Reason: abdominal pain) Qty: 20 0RF ondansetron 4 mg tablet,disintegrating 4 mg PO Q6-8H PRN (Reason: nausea and vomiting) Qty: 7 0RF No Action lorazepam 0.5 mg tablet 0.5 mg PO BEDTIME PRN omeprazole 20 mg capsule,delayed release(DR/EC) 20 mg PO DAILY sennosides-docusate sodium [Senna-S] 8.6-50 mg tablet 2 tab-cap PO BEDTIME Qty: 60 3RF zolpidem [Ambien] 5 mg tablet 5 mg PO BEDTIME PRN sertraline 50 mg tablet 50 mg PO DAILY ibuprofen 600 mg tablet PO .QD PRN (Reason: pain)
[2022-12-02 01:11] LABS: MANUAL DIFF FLAG NO
[2022-12-02 01:13] LABS: Basophils Absolute Auto 0.1 X10*3/uL (0.0-0.2); Basophils Percent Auto 0.4 % (0-2); Eosinophils Absolute Auto 0.2 X10*3/uL (0.0-0.4); Eosinophils Percent Auto 1.2 % (0-4); Hemoglobin 13.6 g/dl (12.0-16.0); Imm Gran Abs Auto 0.09 X10*3/uL (0.00-0.03); Imm Gran Pct Auto 0.6 % (0.0-0.4); Lymphocytes Percent Auto 12.8 % (20-40); Mean Corpuscular HGB Conc 34.9 g/dl (31.0-35.0); Mean Corpuscular Hemoglobin 28.6 pg (27.0-33.0); Mean Corpuscular Volume 82.1 fL (80.0-98.0); Mean Platelet Volume 9.8 fL (9.4-12.3); Monocytes Absolute Auto 0.8 X10*3/uL (0.1-1.2); Monocytes Percent Auto 5.1 % (2-11); Neutrophils Absolute Auto 12.3 x10*3/uL (2.0-8.3); Neutrophils Percent Auto 79.9 % (45-73); Platelet Count 286 X10*3/uL (160-400); Red Blood Count 4.75 X10*6/uL (4.20-5.50); Red Cell Distribution Width 12.2 % (11.0-16.0); White Blood Count 15.4 X10*3/uL (4.8-10.8)
[2022-12-02 01:29] LABS: Alanine Aminotransferase 20 U/L (0-31); Albumin Level 4.5 g/dL (3.5-5.0); Alkaline Phosphatase 122 U/L (39-117); Anion Gap 18 (12-20); Aspartate Amino Transferase 25 U/L (5-31); Bilirubin Total 0.4 mg/dL (0.0-1.0); Blood Urea Nitrogen 16 mg/dL (9-16); Carbon Dioxide 22 mmol/L (22-29); Chloride 106 mmol/L (96-108); Creatinine Clr Calc Pharmacy 53.1; Estimated Glomerular Filt Rate > 60; Glucose Random 131 mg/dL (60-115); Potassium 4.1 mmol/L (3.3-5.1); Sodium 142 mmol/L (135-145); Total Protein 7.4 g/dL (6.5-8.0)
[2022-12-02] MEDS: Dicyclomine HCl 10 MG CAPSULE 20 MG PO (01:30)
[2022-12-02] MEDS: Ondansetron ODT 4 MG TAB.RAPDIS SUBLINGUAL (01:31)
[2022-12-02 02:13] VITALS: BP 153/86; PULSE 82; RESP 20; O2SAT 98
[2022-12-02] MEDS: HYDROmorphone HCl 2 MG/ML VIAL IM (02:25)
[2022-12-02 04:28] VITALS: BP 119/53; PULSE 73; RESP 15; O2SAT 98
== END 2022-12-02 04:37 | disposition home or self-care (01) ==
PROVIDERS: Emergency Provider Internal Medicine; PCP Internal Medicine
DX: K52.9 Noninfective gastroenteritis and colitis, unspecified (principal); Z87.891 Personal history of nicotine dependence; Z79.899 Other long term (current) drug therapy
CPT/HCPCS: 36415; 74176; 80053; 85025; 96372; 99284; J1170

== ENCOUNTER 2022-12-09 10:35 | Outpatient (REF) | payer OTHER, SELFPAY ==
--- NOTE | ~2022-12-09 | US_ITS ---
EXAMINATION: US PELVIS CLINICAL INFORMATION: Pelvic pain. COMPARISON: CT of the abdomen and pelvis 12/02/2022. TECHNIQUE: Ultrasound of the pelvis is performed using both transabdominal and transvaginal transducers along with Doppler. Transvaginal imaging is performed due to inadequate visualization transabdominally. FINDINGS: UTERUS: The uterus is retroverted and measures 7.0 x 3.2 x 5.3 cm. The double wall endometrial thickness is 0.5 mm. The uterus is smooth in contour and has normal myometrial echogenicity. Two anterior fibroids are present in the uterine body measuring 1.1 x 0.6 x 0.7 cm and 0.7 x 0.6 x 1.0 cm. ADNEXA: Both ovaries are visualized. There is normal color flow to the adnexa. There is no ovarian torsion. There is no pelvic ascites or fluid collection. The free fluid seen in the cul-de-sac at the time of the prior CT scan is not detected. Right ovary measures: 1.9 x 1.5 x 1.2 cm for a volume of 1.8 mL. Left ovary measures: 2.0 x 2.1 x 1.0 cm for a volume of 2.2 mL. US/US pelvic and transvaginal IMPRESSION: Two small uterine fibroids which have been seen on prior ultrasound exams.
== END 2022-12-09 10:36 | disposition home or self-care (01) ==
LOC: HO.US 10:35
PROVIDERS: Visit Provider Advanced Practice Midwife
DX: R10.2 Pelvic and perineal pain (principal)
CPT/HCPCS: 76830; 76856

== ENCOUNTER → 2022-12-26 13:07 | Outpatient (BNVA) | payer OTHER, SELFPAY | PROVIDERS: PCP Internal Medicine; Visit Provider Advanced Practice Midwife | DX: Z71.2 Person consulting for explanation of examination or test findings (principal); D25.9 Leiomyoma of uterus, unspecified; R10.2 Pelvic and perineal pain; N76.0 Acute vaginitis; B96.89 Other specified bacterial agents as the cause of diseases classified elsewhere | CPT/HCPCS: 99212 ==

== ENCOUNTER 2023-01-19 13:27 | Outpatient (REF) | payer OTHER, SELFPAY ==
[2023-01-19 16:42] LABS: Blood Urea Nitrogen 18 mg/dL (9-16); Estimated Glomerular Filt Rate > 60; Lipase 28 U/L (8-78)
[2023-01-19 17:03] LABS: Folate 16.9 ng/mL (> or = 4.0); TSH reflex Free T4 0.59 uIU/mL (0.32-4.0); Vitamin B12 611 pg/mL (200-900)
[2023-01-23 14:58] LABS: Transglutaminase Ab IgG <1.0 U/mL; Transglutaminase IgA <1.0 U/mL
[2023-01-24 16:15] LABS: Vitamin D 25-OH, D2 <4 ng/mL; Vitamin D 25-OH, D3 32 ng/mL; Vitamin D 25-OH, Total 32 ng/mL (30-100)
== END 2023-01-19 13:28 | disposition home or self-care (01) ==
LOC: HO.LAB 13:27
PROVIDERS: PCP Internal Medicine; Visit Provider Nurse Practitioner Family
DX: R19.7 Diarrhea, unspecified (principal); E55.9 Vitamin D deficiency, unspecified; K59.01 Slow transit constipation; K21.9 Gastro-esophageal reflux disease without esophagitis; R10.10 Upper abdominal pain, unspecified
CPT/HCPCS: 36415; 82306; 82565; 82607; 82746; 83690; 84443; 84520; 86364; 99202

== ENCOUNTER 2023-02-15 09:00 | Outpatient (REF) | payer OTHER, SELFPAY ==
--- NOTE | ~2023-02-15 | CT_ITS ---
EXAMINATION: CT ABDOMEN AND PELVIS WITH CONTRAST CLINICAL INFORMATION: Abdominal pain COMPARISON: Previous CT of the abdomen and pelvis and pelvic ultrasound November 2022 TECHNIQUE: Multidetector volumetric images were obtained from the superior aspect of the liver through the pubic symphysis following administration 85 mL of Omnipaque 350 intravenous contrast. Sagittal and coronal reformatted images were obtained on the technologist's workstation. Oral contrast: Yes This CT examination was performed using dose optimization techniques as appropriate, variously including the following: *Automated exposure control *Adjustment of mA and/or kV according to patient size (this includes techniques or standardized protocols for targeted exams where dose is matched to indication/reason for exam; i.e. extremities or head) *Use of iterative reconstruction technique DLP: 299 mGy-cm FINDINGS: LUNG BASES: The visualized lung bases are unremarkable. LIVER, GALLBLADDER, AND BILIARY TREE: The liver is normal in size, shape, and attenuation. No focal hepatic lesion or biliary ductal dilatation is present. The gallbladder is unremarkable with no evidence of radiopaque gallstones, gallbladder wall thickening, or obvious pericholecystic inflammatory changes. PANCREAS: Unremarkable. SPLEEN: Unremarkable. ADRENAL GLANDS: Unremarkable. KIDNEYS AND URETERS: The kidneys are normal in size, shape, and attenuation. No hydronephrosis, hydroureter, or calculi seen. No perinephric stranding. Small cyst in the left kidney. No imaging follow-up recommended. BLADDER: Unremarkable. GASTROINTESTINAL TRACT: The small and large bowel are unremarkable. The appendix is not seen. No inflammatory changes right lower quadrant. ABDOMINAL WALL: Small umbilical hernia containing fat. LYMPH NODES: Normal. VASCULAR: Unremarkable. PELVIC VISCERA: Unremarkable. OSSEOUS STRUCTURES: Spondylolysis, grade 1 spondylolisthesis and degenerative disc disease at L5-S1. CT/CT abdomen pelvis w IV con IMPRESSION: No acute findings. Fleischner guidelines were followed.
[2023-02-15] MEDS: Barium Sulfate Oral (Mocha) 450 ML ORAL.SUSP 900 ML PO (12:01)
[2023-02-15] MEDS: iohexoL 350 MG/ML 100 ML INFUS..BTL IV (12:02)
== END 2023-02-15 09:01 | disposition home or self-care (01) ==
LOC: HO.CT 09:00
PROVIDERS: PCP Internal Medicine; Visit Provider Nurse Practitioner Family
DX: R10.9 Unspecified abdominal pain (principal)
CPT/HCPCS: 74177; Q9967

== ENCOUNTER → 2023-02-23 13:37 | Outpatient (BNVA) | payer OTHER, SELFPAY | PROVIDERS: PCP Internal Medicine; Visit Provider Nurse Practitioner Family | DX: K59.01 Slow transit constipation (principal); K21.9 Gastro-esophageal reflux disease without esophagitis; Z86.010 Personal history of colon polyps | CPT/HCPCS: 99212 ==

== ENCOUNTER 2023-04-05 08:28 | Outpatient (REF) | payer OTHER, SELFPAY ==
--- NOTE | ~2023-04-05 | MM_ITS ---
EXAMINATION: MM SCREENING DIGITAL BREAST TOMOSYNTHESIS, BILATERAL CLINICAL INFORMATION: Left breast IDC CAD status post lumpectomy 09/25/2017. Due for yearly. COMPARISON: Mammography: 03/30/2022, 03/26/2021, 09/10/2019, 01/10/2019 TECHNIQUE: Digital breast tomosynthesis is performed in both the craniocaudal and mediolateral oblique views along with computer-aided detection (CAD). Synthesized 2D images are generated from the tomosynthesis. FINDINGS: There are scattered areas of fibroglandular density (ACR BI-RADS breast composition Category b). Parenchymal pattern is similar to prior studies and there is no developing density or interval mass or architectural abnormality or abnormal calcifications. There is a stable intramammary node posterior upper outer right breast. Left breast again shows chronic post therapy changes with mild reduced breast size, stable scarring, and surgical clips. The axilla are unremarkable. No significant changes. MM/MM tomosynthesis screening BI IMPRESSION: -No mammographic evidence of malignancy. -Post therapy changes left breast, stable ASSESSMENT: BI-RADS 2: Benign RECOMMENDATION: Routine annual mammography screening. This patient's information was entered into a reminder system with a target due date for their next mammogram.
== END 2023-04-05 08:29 | disposition home or self-care (01) ==
LOC: HO.MAMMO 08:28
PROVIDERS: PCP Internal Medicine; Visit Provider Internal Medicine
DX: Z12.31 Encounter for screening mammogram for malignant neoplasm of breast (principal)
CPT/HCPCS: 77063; 77067

== ENCOUNTER 2023-07-03 11:26 | Outpatient (AMB) | payer OTHER, SELFPAY ==
--- NOTE | 2023-07-03 11:41 | A.OFFPC_ITS ---
Vital Signs 07/03/23 11:42 Height 4 ft 11 in Weight 134 lb BMI 27.1 BP 136/72 Blood Pressure Location Lt brachial Position Sitting Pulse 92 Pulse Source Pulse Oximeter Pulse Oximetry (%) 98 Oxygen Delivery Method Room Air Intake Visit Reasons: annual exam Allergies No Known Allergies [No Known Allergies*] Allergy (Verified 07/03/23 11:42) Medication List - Last Reconciled 07/03/23 by Marlyn Krause MD bisacodyl (Dulcolax (bisacodyl)) 10 mg (2 x 5 mg) PO ONCE 1 day ibuprofen mg PO .QD PRN linaclotide (Linzess) 145 mcg PO DAILY polyethylene glycol 3350 (Miralax) 238 grams PO ONCE sennosides-docusate sodium 8.6-50 mg (Senna-S) 3 tab-caps (3 x 8.6-50 mg) PO BEDTIME 90 days Tobacco use date assessed: 12/20/22 Dental Screening Dental Screen Date: 07/03/23 Did you have a dental visit in the last 12 months?: Yes Did you have a dental problem in the last 6 months where you did not have access to dental care?: No Was dental information given to patient?: Patient has dentist HPI annual exam HPI Details Spofe[age]bqeas[age]isen-old overweight female with a history of insomnia impaired glucose tolerance hypercholesterolemia GERD left breast cancer last seen in January 2023 patient is here for physical exam. Patient is up-to-date with mammogram was reminded about colonoscopy. Patient did meet with the milliner helper. Had constipation but was not able to get the Linzess prescription placed on senna Colace 3 tablets evening which helps her. CT scan done of the abdomen in January 2023 showing no acute findings. complains of L leg pain , deny fall or trauma [facility] Medical History (Updated 07/03/23 @ 12:15 by Marlyn Krause MD) Tobacco abuse Tubular adenoma of colon Recurrent major depression Carpal tunnel syndrome of left wrist Neuropathy of left ulnar nerve at wrist Lumbar degenerative disc disease Renal calculus, left Right ovarian cyst Stress incontinence Hypercholesterolemia GERD (gastroesophageal reflux disease) Generalized anxiety disorder Invasive ductal carcinoma of left breast Paroxysmal atrial fibrillation Insomnia Surgical History History of lumpectomy of left breast Family History Father Liver cancer Substance abuse Mother Heart disease Diabetes mellitus HTN (hypertension) CVD (cardiovascular disease) Brother HTN (hypertension) CVD (cardiovascular disease) Substance abuse Sister Breast cancer CVD (cardiovascular disease) Social History (Updated 07/03/23 @ 12:13 by Marlyn Krause MD) Housing: Apartment Alcohol intake: never Patient Tobacco Use Status: Current everyday Tobacco user Tobacco use type: Cigarette Cigarettes Per Day: 3 Years Smoked: quit 05/2022 e-Cigarette/Vaping Use: Never Used Second Hand Smoke Exposure: No service: No Current occupational status: employed Gender identity: Female Cognitive needs: No Hearing needs: No Vision needs: Yes Female Reproductive History Menstrual Age of Menarche: 13 Questionnaire PHQ-9 Over the last 2 weeks, how often have you been bothered by any of the following problems? 1. Little interest or pleasure in doing things: not at all 2. Feeling down, depressed, or hopeless: not at all 3. Trouble falling or staying asleep, or sleeping too much: not at all 4. Feeling tired or having little energy: not at all 5. Poor appetite or overeating: not at all 6. Feeling bad about yourself - or that you are a failure or have let yourself or your family down: not at all 7. Trouble concentrating on things, such as reading the newspaper or watching television: not at all 8. Moving or speaking so slowly that other people could have noticed. Or the opposite - being so fidgety or restless that you have been moving around a lot more than usual: not at all 9. Thoughts that you would be better off or of hurting yourself in some way: not at all Total score: 0 Depression Screening Interpretation: Negative Source: Developed by Drs. Vitaliy Elder, Preeti Orozco, Obey Pitts and colleagues, with an educational torri from [employer]. Thrive Questionnaire Date Thrive assessed: 12/20/22 AUDIT C Alcohol Use Questionnaire (AUDIT-C) 1. How often do you have a drink containing alcohol?: Monthly or less 2. How many drinks containing alcohol do you have on a typical day when you are drinking?: 1 or 2 3. How often do you have six or more drinks on one occasion?: Never Total Score: 1 SHAYY-7 AMB Questionnaire SHAYY-7 Date SHAYY - 7 assessed: 12/20/22 Source: Developed by Drs. Vitaliy Elder, Preeti Orozco, Obey Pitts and colleagues, with an educational torri from [employer]. Review of Systems Const Denies poor appetite and Denies weakness Eyes Denies no additional complaints ENT Reports Normal hearing present, Denies dizziness, Denies nasal congestion, Denies tinnitus and Denies sore throat Card Denies chest pain, Denies syncope, Denies rapid heart rate and Denies dyspnea Resp Denies cough and Denies dyspnea GI Denies change in stool character, Reports constipation, Denies diarrhea, Denies nausea and Denies vomiting Denies urinary frequency, Denies difficulty voiding and Denies dysuria Neuro Reports Normal hearing present, Denies confusion, Denies dizziness, Denies syncope and Denies weakness Psych Denies confusion Physical exam (Primary Care) Vital Signs: Last Vital Signs Pulse 92 07/03/23 11:42 BP 136/72 07/03/23 11:42 Pulse Ox 98 07/03/23 11:42 Oxygen Delivery Method Room Air 07/03/23 11:42 BMI result Body Mass Index 27.1 Tobacco/Smoking Status: Tobacco use Status Tobacco use date assessed 12/20/22 07/03/23 11:45 Patient Tobacco Use Status Former Tobacco user 07/03/23 11:45 Tobacco use type Cigarette 07/03/23 11:45 e-Cigarette/Vaping Use Never Used 07/03/23 11:45 PHQ-9: PHQ-9 Score PHQ-9: Total score 0 07/03/23 11:45 Depression Screening Interpretation: Negative Thrive Assessment: Date of Thrive Assessment Date Thrive assessed 12/20/22 07/03/23 11:45 Const General: No confusion Orientation/consciousness: No confusion HENMT Head: Yes normocephalic Ears: external ears normal and TM's normal bilaterally Face and sinus: Yes normal facial exam Mouth: moist mucous membranes Throat: Yes tonsils normal Eyes Conjunctivae: conjunctivae normal Pupils: Equal, round and reactive pupils present and Pupil accommodation reflex normal Direct Ophthalmoscopy: normal light reflex Neck Neck: No lymphadenopathy Thyroid: Thyroid normal Chest Chest palpation & inspection: normal inspection of the chest Resp Effort & Inspection: normal respiratory effort and no audible wheezes Auscultation: clear to auscultation bilaterally, no crackles, no wheezes and lung sounds not diminished Cardio Rate: regular rate Rhythm: regular rhythm Peripheral pulses: radial pulses present and dorsalis pedis present GI Palpation (GI): no masses Auscultation: normal bowel sounds and normoactive bowel sounds Rectal Exam - Female: deferred Skin General skin exam: no rashes or lesions noted Rashes: no rashes Neuro General: No confusion Cranial nerves: Yes Equal, round and reactive pupils present and Yes Normal hear ing present Cognition (Neuro): normal cognition Gait exam (Neuro): Normal gait present Motor exam (neuro): 5/5 motor strength present throughout Deep tendon reflexes (DTR's): Right brachioradialis reflex intensity grade: 2+, Left brachioradialis reflex intensity grade: 2+, Right patellar reflex intensity grade: 2+ and Left patellar reflex intensity grade: 2+ Extrem General: No edema Assessment and Plan Assessment & Plan (1) Annual physical exam: Code(s): Z00.00 - Encounter for general adult medical examination without abnormal findings (2) Invasive ductal carcinoma of left breast: Comment: August 2017 radiation and tamoxifen Code(s): C50.912 - Malignant neoplasm of unspecified site of left female breast Plan: Patient is a it is up-to-date with mammogram (3) GERD (gastroesophageal reflux disease): Code(s): K21.9 - Gastro-esophageal reflux disease without esophagitis Qualifiers: Esophagitis presence: esophagitis presence not specified Qualified Code(s): K21.9 - Gastro-esophageal reflux disease without esophagitis Plan: Avoid the foods that causes that usually spicy foods, tomato products, juices, coffee, soda and foods that your sensitive to. After eating do not lie down, allow 3-4 hours before in lie down. And keep the head of bed above 30 degrees to avoid the acid from going up. (4) Hypercholesterolemia: Code(s): E78.00 - Pure hypercholesterolemia, unspecified Plan: Avoid fried foods, chicken skin, eggs, butter margarine, pastries and meat. Be it pork or beef they have a lot of cholesterol LDL goal of less than 130 and triglyceride of less than 150. (5) Recurrent major depression: Comment: [facility] 06/2021 Code(s): F33.9 - Major depressive disorder, recurrent, unspecified Plan: Continue with counseling and therapy (6) Constipation: Code(s): K59.00 - Constipation, unspecified Plan: Three rules for constipation 1. Diet need to have a high fiber diet less of meat 2. Increase oral fluids 3. Exercise patient follows up with Gastroenterology and colonoscopy pending (7) Generalized anxiety disorder: Comment: counselling [facility] Code(s): F41.1 - Generalized anxiety disorder Plan: Continue with counseling (8) Tobacco abuse: Comment: stopped mid April 2022, still smoking 3x a day 06/2023 Code(s): Z72.0 - Tobacco use (9) Dysphagia: Code(s): R13.10 - Dysphagia, unspecified (10) Snoring: Code(s): R06.83 - Snoring Orders: Orders Complete Blood Count Auto Diff Today R73.02 - Impaired glucose tolerance (oral) Thyroid Stimulating Hormone Today R73.02 - Impaired glucose tolerance (oral) Vitamin B12 and Folate Today R73.02 - Impaired glucose tolerance (oral) Vitamin D 25-OH Total Today R73.02 - Impaired glucose tolerance (oral) Lipid Panel Today E78.00 - Pure hypercholesterolemia, unspecified, R73.02 - Impaired glucose tolerance (oral) Hemoglobin A1c Today R73.02 - Impaired glucose tolerance (oral) FL upper GI series Today R13.10 - Dysphagia, unspecified Comprehensive Met. Panel Today R73.02 - Impaired glucose tolerance (oral) Free T4 (Free Thyroxine) Today R73.02 - Impaired glucose tolerance (oral) FL barium swallow Today R13.10 - Dysphagia, unspecified Referrals Ear/Nose/Throat Referral R06.83 - Snoring Coding Level of Care Code Est Pt Prev Care 40-64y(16205) Diagnoses Annual physical exam Z00.00 Invasive ductal carcinoma of left breast C50.912 Gastroesophageal reflux disease, unspecified whether esophagitis present K21.9 Esophagitis presence: esophagitis presence not specified Hypercholesterolemia E78.00 Recurrent major depression F33.9 Constipation K59.00 Generalized anxiety disorder F41.1 Tobacco abuse Z72.0 Dysphagia R13.10 Snoring R06.83
[2023-07-03 11:42] VITALS: BP 136/72; PULSE 92; O2SAT 98; BMI 27.1
== END 2023-07-03 12:29 | disposition home or self-care (01) ==
PROVIDERS: PCP Internal Medicine; Visit Provider Internal Medicine
DX: Z00.00 Encounter for general adult medical examination without abnormal findings (principal); C50.912 Malignant neoplasm of unspecified site of left female breast; K21.9 Gastro-esophageal reflux disease without esophagitis; F33.9 Major depressive disorder, recurrent, unspecified; E78.00 Pure hypercholesterolemia, unspecified; K59.00 Constipation, unspecified; F41.1 Generalized anxiety disorder; Z72.0 Tobacco use; R13.10 Dysphagia, unspecified; R06.83 Snoring
CPT/HCPCS: 99396

== ENCOUNTER 2023-07-26 11:38 | Emergency (ER) | payer OTHER, SELFPAY ==
--- NOTE | ~2023-07-26 | XR_ITS ---
EXAMINATION: XR LUMBOSACRAL SPINE CLINICAL INFORMATION: Pain COMPARISON: 12/19/2019 TECHNIQUE: Three views of the lumbosacral spine. FINDINGS: Mildly exaggerated lumbar lordosis. Degenerative changes are seen with some minimal narrowing at L3-L4 and some mild narrowing at L4-L5 and L5-S1. There is grade 1 anterolisthesis of L5 upon S1 which appears unchanged when compared to the prior study from 2019. The disc space narrowing at L4-L5 appears new. XR/XR lumbar spine 2-3V IMPRESSION: Mild degenerative changes in the lumbar spine with grade 1 anterolisthesis of L5 upon S1. The changes at L4-L5 are new.
--- NOTE | ~2023-07-26 | XR_ITS ---
EXAMINATION: XR HIP, LEFT CLINICAL INFORMATION: Left hip pain COMPARISON: None available. TECHNIQUE: Single view pelvis with Two views of the left hip. FINDINGS: No fracture. Alignment is anatomic. Hip joint space is maintained. Soft tissues are unremarkable. Phleboliths are noted. XR/XR hip LT w PEL1V IMPRESSION: Normal left hip.
[2023-07-26 12:13] VITALS: BP 131/79; PULSE 91; RESP 16; TEMP 36.8; O2SAT 100; BMI 27.3
--- NOTE | 2023-07-26 12:13 | ED.LOWEXIN ---
HPI - Extremity Injury (Lower) General Chief Complaint: Back Pain/Injury Stated Complaint: Pain in L leg Time Seen by Provider: 07/26/23 15:43 Source: patient, family and RN notes reviewed Mode of arrival: ambulatory Limitations: no limitations History of Present Illness HPI Narrative: This is a 20-jwdd-ncc-female, with a hx of GERD, paroxysmal atrial fibrillation, and chronic back pain, who presents to the emergency department with complaints of left sided buttock pain and left leg pain x 1 day. Pt reports no recent trauma, injury, heavy lifting or falls. Pt states that she has had problems with these symptoms in the past, however reports that the pain worsened last night. Reports difficulty sleeping secondary to the pain. She denies any numbness, tingling, urinary/bowel incontinence or retention. She has not taken any pain medications at home to treat her symptoms. No fevers, chills, abdominal pain, nausea, vomiting or diarrhea. Denies any other complaints or concerns at this time. MD complaint: other (left leg pain, low back pain) Onset (ago): day(s) Type of Injury: unknown Severity: moderate Relieving factors: immobilization Exacerbating factors: weight bearing, movement and palpation Other symptoms: none Related Data Home Medications Medication Instructions Recorded Confirmed ibuprofen 600 mg tablet mg PO .QD PRN pain 06/25/21 07/03/23 Previous Rx's Medication Instructions Recorded linaclotide 145 mcg capsule 145 mcg PO DAILY #30 caps 01/19/23 (Linzess) sennosides 8.6 mg-docusate sodium 3 tab-cap (3 x 8.6-50 mg) PO 01/23/23 50 mg tablet (Senna-S) BEDTIME 90 days #270 tabs bisacodyl 5 mg tablet,delayed 10 mg (2 x 5 mg) PO ONCE 1 day #2 02/23/23 release (Dulcolax (bisacodyl)) tabs polyethylene glycol 3350 17 238 g PO ONCE #238 grams 02/23/23 gram/dose oral powder (Miralax) cyclobenzaprine 5 mg tablet 5 mg PO TID PRN muscle spasm #14 07/26/23 tabs lidocaine 5 % topical patch 1 patch topical DAILY #30 ea 07/26/23 (Lidoderm) oxycodone 5 mg tablet 5 mg PO Q6H PRN pain #7 tabs 07/26/23 Allergies Allergy/AdvReac Type Severity Reaction Status Date / Time No Known Allergies Allergy Verified 07/26/23 12:13 [No Known Allergies*] Review of Systems Review of Systems: Yes all other systems are reviewed and are negative FOR[facility]LY [facility] Past Medical History Attestation statement: The following information was validated with the patient. Medical History (Updated 07/26/23 @ 17:33 by CORRY De Leon) Tobacco abuse Tubular adenoma of colon Recurrent major depression Carpal tunnel syndrome of left wrist Neuropathy of left ulnar nerve at wrist Lumbar degenerative disc disease Renal calculus, left Right ovarian cyst Stress incontinence Hypercholesterolemia GERD (gastroesophageal reflux disease) Generalized anxiety disorder Invasive ductal carcinoma of left breast Paroxysmal atrial fibrillation Insomnia Surgical History History of lumpectomy of left breast Family History Family History Father Liver cancer Substance abuse Mother Heart disease Diabetes mellitus HTN (hypertension) CVD (cardiovascular disease) Brother HTN (hypertension) CVD (cardiovascular disease) Substance abuse Sister Breast cancer CVD (cardiovascular disease) Social History Social History (Updated 07/03/23 @ 12:13 by Marlyn Krause MD) Housing: Apartment Alcohol intake: never Patient Tobacco Use Status: Current everyday Tobacco user Tobacco use type: Cigarette Cigarettes Per Day: 3 Years Smoked: quit 05/2022 Smoked in Last 30 Days: Yes e-Cigarette/Vaping Use: Never Used Second Hand Smoke Exposure: No Use of substances other than those prescribed or required for medical reasons: No Advance Directives: No Advance Directives Information Provided: No service: No Current occupational status: employed Gender identity: Female Cognitive needs: No Hearing needs: No Vision needs: Yes Physical Exam Vital Signs: Vital Signs: Last Vital Signs Temp 97 F 07/26/23 18:05 Pulse 93 07/26/23 18:05 Resp 14 07/26/23 18:05 BP 126/70 07/26/23 18:05 Pulse Ox 99 07/26/23 18:05 O2 Del Method Room Air 07/26/23 18:05 BMI result Body Mass Index 27.3 Const: Other: General: Awake, alert, and oriented X3. No acute distress. HEENT: Normal inspection CVS: Normal heart rate and rhythm. Pulses normal. Respiratory: No respiratory distress Skin: Warm, dry, no rashes noted to exposed skin. Normal skin color. Normal skin turgor. Back: No midline spine tenderness to palpation. Extremities: Left buttocks and posterior thigh tenderness to palpation, no overlying masses, fluctuance. No erythema noted. + straight leg raise on the left. No calf tenderness. Neuro: Oriented X 3. No motor deficit. No sensory deficit. Course Course Course Narrative: RME: 58yo M w/PMHx HLD, GERD, A.fib c/o LLE pain radiating from L hip/buttock down LLE, cannot move leg w/difficulty sleeping from pain x awhile but worsening today. denies injury/fall, numbness/tingling, incontinence/retention. denies taking anything for pain today Ambulating w/steady gait XRs ordered Full HPI, ROS and PE to be performed by primary ED provider. Reevaluation(s) Reevaluation #1: Pt with mild degenerative changes in the lumbar spine with grade 1 anterolisthesis of L5 upon S1. The changes at L4-L5 are new. I discussed these results with pt and demetrio at bedside. Pt feeling much better after receiving medications in the ER today and is eager for discharge. Given return precautions. Pt understands and agrees with plan. Stable for d/c. Medications Administered Discontinued Medications Generic Name Dose Route Start Last Admin Trade Name Solomonq PRN Reason Stop Dose Admin Acetaminophen 975 mg 07/26/23 16:19 07/26/23 16:27 Acetaminophen 325 Mg Tablet PO 07/26/23 16:20 975 mg ONCE ONE Administration Oxycodone HCl 5 mg 07/26/23 16:18 07/26/23 16:28 Oxycodone Hcl Immed Release 5 Mg Tablet PO 07/26/23 16:19 5 mg ONCE ONE Administration Medical Decision Making Medical Decision Making MDM Narrative: 58 y/o F presenting to the emergency department with a complaint of left low back pain and leg pain since yesterday. She has had these symptoms ongoing for awhile which exacerbated yesterday without any new trauma or injury. On arrival, pt nontoxic appearing, with normal vital signs. Pt appearing mildly uncomfortable with low back pain, especially with positional changes. DDX including disc herniation, muscle spasm, sciatica. This patient presents with back pain most consistent with muscle spasms/lumbar radiculopathy Differential diagnoses includes lumbago versus musculoskeletal spasm / strain versus sciatica. No back pain red flags on history or physical. Presentation not consistent with malignancy (lack of history of malignancy, lack of B symptoms), fracture (no trauma, no bony tenderness to palpation), cauda equina syndrome (no bowel or urinary incontinence/retention, no saddle anesthesia, no distal weakness), pyelonephritis (afebrile, no CVAT, no urinary symptoms). Given the clinical picture, lumbar x-rays and hip/pelvic x-rays were ordered. Given discomfort, pt medicated with oxycodone and tylenol. Differential Diagnosis Differential Diagnoses: The differential diagnosis associated with the presentation includes see above Independent Interpretation Interpretation: EXAMINATION: XR LUMBOSACRAL SPINE CLINICAL INFORMATION: Pain COMPARISON: 12/19/2019 TECHNIQUE: Three views of the lumbosacral spine. FINDINGS: Mildly exaggerated lumbar lordosis. Degenerative changes are seen with some minimal narrowing at L3-L4 and some mild narrowing at L4-L5 and L5-S1. There is grade 1 anterolisthesis of L5 upon S1 which appears unchanged when compared to the prior study from 2019. The disc space narrowing at L4-L5 appears new. XR/XR lumbar spine 2-3V IMPRESSION: Mild degenerative changes in the lumbar spine with grade 1 anterolisthesis of L5 upon S1. The changes at L4-L5 are new. Dictated By: Edgardo Novak MD EXAMINATION: XR HIP, LEFT CLINICAL INFORMATION: Left hip pain COMPARISON: None available. TECHNIQUE: Single view pelvis with Two views of the left hip. FINDINGS: No fracture. Alignment is anatomic. Hip joint space is maintained. Soft tissues are unremarkable. Phleboliths are noted. XR/XR hip LT w PEL1V IMPRESSION: Normal left hip. Dictated By: Edgardo Novak MD Discharge Plan Discharge Clinical Impression: Acute left lumbar radiculopathy Patient Disposition: Home, Self-Care Instructions: Acute Low Back Pain (ED), Lumbar Radiculopathy (ED), Back Pain (ED) Additional Instructions: You presented today with left leg pain, and left buttocks pain, this pain is likely stemming from your back causing you to have this pain. Please take prescribed medication as directed. I am prescribing you multiple medications to help treat this pain. Time prescribing you Flexeril which is a muscle relaxant, please be advised that this can cause drowsiness, do not drink alcohol or drive while taking this medication. Please take Tylenol as directed as needed for moderate pain. Take oxycodone for severe pain only, do not drink or drive while taking this medication. Use Lidoderm patches as needed for pain Your x-ray shows degenerative changes in your spine as well as some shifting in your bones, these are new changes from your previous x-rays that were done in 2019. Please follow-up with your primary care physician regarding this visit. If any new or worsening symptoms occur including but not limited to loss of bowel and bladder control, numbness and tingling anterior groin, please return for re-evaluation. Prescriptions: New cyclobenzaprine 5 mg tablet 5 mg PO TID PRN (Reason: muscle spasm) Qty: 14 0RF lidocaine [Lidoderm] 5 % adhesive patch,medicated 1 patch topical DAILY Qty: 30 0RF Rx Instructions: leave on most painful area for up to 12 hrs oxycodone 5 mg tablet 5 mg PO Q6H PRN (Reason: pain) Qty: 7 0RF Rx Instructions: Partial Fill upon patient request. No Action sennosides-docusate sodium [Senna-S] 8.6-50 mg tablet 3 tab-cap PO BEDTIME 90 Days Qty: 270 3RF ibuprofen 600 mg tablet PO .QD PRN (Reason: pain) Linzess 145 mcg capsule 145 mcg PO DAILY Qty: 30 2RF bisacodyl [Dulcolax (bisacodyl)] 5 mg tablet,delayed release (DR/EC) 10 mg PO ONCE 1 Days Qty: 2 0RF Rx Instructions: take 2 tabs at noon the day before your colonoscopy polyethylene glycol 3350 [Miralax] 17 gram/dose powder 238 g PO ONCE Qty: 238 0RF Rx Instructions: As directed by gastroenterology department at [facility] Interventions: ED Discharge Assessment Last Done: 07/26/23 18:09 Discharge Date/Time: 07/26/23 18:09
--- NOTE | 2023-07-26 15:40 | PC.NURSE ---
PT AWAKE, ALERT AND ORIENTED X 3. DIFFICULTY AMBULATING DUE TO PAIN. REPORTS PAIN STARTING IN LEFT BUTTOCK AND RADIATING DOWN THE LEG. REQUIRED WHEELCHAIR TO [facility] ROOM 5. AWAITING EVAL BY PROVIDER PT RATES PAIN 10/10
[2023-07-26 15:42] VITALS: BP 158/75; PULSE 98; RESP 18; TEMP 36.4; O2SAT 99
[2023-07-26] MEDS: Acetaminophen 325 MG TABLET 975 MG PO (16:27)
[2023-07-26] MEDS: oxyCODONE HCl Immed Release 5 MG TABLET PO (16:28)
--- NOTE | 2023-07-26 16:35 | PC.NURSE ---
aox4 .back/l leg pain. no respiratory distress. +CMS. ice pack given
[2023-07-26 18:05] VITALS: BP 126/70; PULSE 93; RESP 14; TEMP 36.1; O2SAT 99
== END 2023-07-26 18:09 | disposition home or self-care (01) ==
PROVIDERS: Emergency Provider Emergency Medicine
DX: M54.16 Radiculopathy, lumbar region (principal); M25.552 Pain in left hip; M79.605 Pain in left leg; F17.210 Nicotine dependence, cigarettes, uncomplicated; Z71.6 Tobacco abuse counseling; Z79.899 Other long term (current) drug therapy
CPT/HCPCS: 72100; 73502; 99283; 99284

== ENCOUNTER 2023-07-27 09:58 | Outpatient (AMB) | payer OTHER, SELFPAY ==
--- NOTE | 2023-07-27 10:11 | MHC.PC.OV ---
Vital Signs 07/27/23 10:12 Height 4 ft 11 in BMI Reason not done Patient refused/unable BP 120/74 Blood Pressure Location Lt brachial Position Sitting Pulse 113 H Pulse Source Pulse Oximeter Pulse Oximetry (%) 98 Oxygen Delivery Method Room Air Intake Visit Reasons: [facility] [place], 07/26, pain in L leg Allergies No Known Allergies [No Known Allergies*] Allergy (Verified 07/26/23 12:13) Tobacco use date assessed: 12/20/22 HPI HPI Comments History of Present Illness Details 58-year-old female past medical history significant for GERD, paroxysmal AFib, chronic back pain. Patient presents today for emergency room follow-up. ER Course: This is a 53-mafu-yxj-female, with a hx of GERD, paroxysmal atrial fibrillation, and chronic back pain, who presents to the emergency department with complaints of left sided buttock pain and left leg pain x 1 day. Pt reports no recent trauma, injury, heavy lifting or falls. Pt states that she has had problems with these symptoms in the past, however reports that the pain worsened last night. Reports difficulty sleeping secondary to the pain. She denies any numbness, tingling, urinary/bowel incontinence or retention. She has not taken any pain medications at home to treat her symptoms. No fevers, chills, abdominal pain, nausea, vomiting or diarrhea. Denies any other complaints or concerns at this time. XR/XR lumbar spine 2-3V IMPRESSION: Mild degenerative changes in the lumbar spine with grade 1 anterolisthesis of L5 upon S1. The changes at L4-L5 disc space narrowing, are new. Patient states 10/10 left lower lumbar pain, radiating down left leg. Denies numbness, tingling in leg. Denies bowel/ bladder incontinence.Patient states she has been draging ehr leg as it is too painful to stand on. patient states takes oxycodone and it makes her sleepy and relaxers her. Patient reports lidoderm patches don't work. Patient using her mothers walker to get to her appointment today as it has been difficult for her to walk due to the pain. Patient requesting script for crutches. [facility] Medical History (Updated 07/27/23 @ 11:07 by ELA Stoner) Tobacco abuse Tubular adenoma of colon Recurrent major depression Carpal tunnel syndrome of left wrist Neuropathy of left ulnar nerve at wrist Lumbar degenerative disc disease Renal calculus, left Right ovarian cyst Stress incontinence Hypercholesterolemia GERD (gastroesophageal reflux disease) Generalized anxiety disorder Invasive ductal carcinoma of left breast Paroxysmal atrial fibrillation Insomnia Surgical History History of lumpectomy of left breast Family History Father Liver cancer Substance abuse Mother Heart disease Diabetes mellitus HTN (hypertension) CVD (cardiovascular disease) Brother HTN (hypertension) CVD (cardiovascular disease) Substance abuse Sister Breast cancer CVD (cardiovascular disease) Social History (Updated 07/03/23 @ 12:13 by Marlyn Krause MD) Housing: Apartment Alcohol intake: never Patient Tobacco Use Status: Current everyday Tobacco user Tobacco use type: Cigarette Cigarettes Per Day: 3 Years Smoked: quit 05/2022 e-Cigarette/Vaping Use: Never Used Second Hand Smoke Exposure: No service: No Current occupational status: employed Gender identity: Female Cognitive needs: No Hearing needs: No Vision needs: Yes Female Reproductive History Menstrual Age of Menarche: 13 Questionnaire PHQ-9 Over the last 2 weeks, how often have you been bothered by any of the following problems? 1. Little interest or pleasure in doing things: not at all 2. Feeling down, depressed, or hopeless: not at all 3. Trouble falling or staying asleep, or sleeping too much: not at all 4. Feeling tired or having little energy: not at all 5. Poor appetite or overeating: not at all 6. Feeling bad about yourself - or that you are a failure or have let yourself or your family down: not at all 7. Trouble concentrating on things, such as reading the newspaper or watching television: not at all 8. Moving or speaking so slowly that other people could have noticed. Or the opposite - being so fidgety or restless that you have been moving around a lot more than usual: not at all 9. Thoughts that you would be better off or of hurting yourself in some way: not at all Total score: 0 Depression Screening Interpretation: Negative Depression Screening Done: Yes Source: Developed by Drs. Vitaliy Elder, Preeti Orozco, Obey Pitts and colleagues, with an educational torri from [employer]. Thrive Questionnaire Date Thrive assessed: 07/27/23 I am a: Patient What is your living situation today?: I have a steady place to live Within the past 12 months, did the food you bought not last and you didn't have the money to get more?: Never true Within the past 12 months, did you worry whether your food would run out before you got money to buy more?: Never true Do you have trouble paying for medicines?: No Do you have trouble getting transportation to medical appointments?: No Do you have trouble paying your heating and electricity bill?: No Do you have trouble taking care of your child, family member or friend?: No Do you have trouble with day-to-day activities such as bathing, preparing meals, shopping, managing finances, etc.?: No Are you currently unemployed and looking for a job?: No Are you interested in more education?: No Please select the resources that you would like help with: None Currently or been in a relationship where the following occur: no concerns reported AUDIT C Alcohol Use Questionnaire (AUDIT-C) 1. How often do you have a drink containing alcohol?: Monthly or less 2. How many drinks containing alcohol do you have on a typical day when you are drinking?: 1 or 2 3. How often do you have six or more drinks on one occasion?: Never Total Score: 1 SHAYY-7 AMB Questionnaire SHAYY-7 Date SHAYY - 7 assessed: 07/27/23 Feeling nervous, anxious, or on edge: 0 = Not at all Not being able to stop or control worryin = Not at all Worrying too much about different things: 0 = Not at all Trouble relaxin = Not at all Being so restless that it is hard to sit still: 0 = Not at all Becoming easily annoyed or irritable: 0 = Not at all Feeling afraid as if something awful might happen: 0 = Not at all Total SHAYY-7 score (0-4 normal; 5-9 mild; 10-14 moderate; 15-21 severe): 0 Source: Developed by Drs. Vitaliy Elder, Preeti Orozco, Obey Pitts and colleagues, with an educational torri from [employer]. Review of Systems Const Denies chills, Denies fatigue, Denies fever(s) and Denies poor appetite Eyes Denies no additional complaints ENT Reports Normal hearing present Card Denies chest pain, Denies syncope, Denies rapid heart rate and Denies dyspnea Resp Denies cough and Denies dyspnea GI Denies change in stool character, Denies constipation, Denies diarrhea, Denies nausea and Denies vomiting Denies urinary frequency, Denies dysuria and Denies urinary urgency Musc Reports back pain (lumbar back pain ), Denies numbness, Reports radiating pain into limb (left leg) and Denies tingling Neuro Reports Normal hearing present, Denies confusion, Denies syncope, Denies numbness and Denies tingling Psych Denies confusion Endo Denies fatigue Physical exam (Primary Care) Vital Signs: Last Vital Signs Pulse 113 H 07/27/23 10:12 BP 120/74 07/27/23 10:12 Pulse Ox 98 07/27/23 10:12 Oxygen Delivery Method Room Air 07/27/23 10:12 Tobacco/Smoking Status: Tobacco use Status Tobacco use date assessed 12/20/22 07/27/23 10:21 Patient Tobacco Use Status Current everyday Tobacco 07/27/23 10:21 Tobacco use type Cigarette 07/27/23 10:21 e-Cigarette/Vaping Use Never Used 07/27/23 10:21 PHQ-9: PHQ-9 Score PHQ-9: Total score 0 07/27/23 11:41 Depression Screening Interpretation: Negative Thrive Assessment: Date of Thrive Assessment Date Thrive assessed 07/27/23 07/27/23 10:21 Currently or been in a relationship where the following occur: no concerns reported Const General: No confusion Orientation/consciousness: No confusion [facility] Head: Yes normocephalic and Yes atraumatic Eyes Conjunctivae: conjunctivae normal Chest Chest palpation & inspection: normal inspection of the chest Resp Effort & Inspection: normal respiratory effort Auscultation: clear to auscultation bilaterally, no crackles, no rhonchi and no wheezes Cardio Rate: regular rate Rhythm: regular rhythm Heart sounds: S1 normal heart sound present and S2 normal heart sound present GI Inspection: Yes normal to inspection General: Yes no CVA tenderness Back/Spine/Pelvis Back: no CVA tenderness Cervical Spine: normal cervical lordosis Thoracic/Lumbar Spine: thoracic and lumbar spine normal to inspection, No thoracic spinal tenderness, No lumbar spinal tenderness and straight leg raise positive Pelvis: sciatic notch tenderness on the left Neuro General: No gait normal (Patient unable to stand straight or apply pressure on left leg related pain) and No confusion Cranial nerves: Yes Normal hearing present Extrem General: No edema Assessment and Plan Assessment & Plan (1) Left-sided low back pain with sciatica: Code(s): M54.42 - Lumbago with sciatica, left side Plan: Given patient continues to have excruciating left-sided low back pain radiating to left leg. Patient unable to stand straight her apply pressure to left leg related to the pain. An x-ray showed new disc space narrowing at L4-L5 MRI lumbar spine ordered urgently. Refill given on cyclobenzaprine. Patient advised to take cyclobenzaprine t.i.d. as needed for muscle spasm, ibuprofen 800 mg sent to patient's pharmacy. Patient advise can rotate with Tylenol. Patient reports she still has oxycodone that was given to her in the ER can continue to use this had as needed for severe pain. Patient given prescription in hand for crutches as patient reports she is unable to stand straight or apply pressure to left likely related to back pain and she is currently using her mother's walker in order to get to this appointment today. If MRI unremarkable discussed referral for physical therapy. Patient agreeable to plan of care. (2) Lumbar degenerative disc disease: Code(s): M51.36 - Other intervertebral disc degeneration, lumbar region Plan Follow-up in 2 months or sooner if needed. Orders: Orders MR lumbar spine wo con Today M51.36 - Other intervertebral disc degeneration, lumbar region, M54.42 - Lumbago with sciatica, left side Medications: New miscellaneous medical supply crtutches 1 ea miscellaneous ONCE 1 ea 0RF M54.42 - Lumbago with sciatica, left side miscellaneous medical supply crtutches 1 ea miscellaneous ONCE 1 ea 0RF M54.42 - Lumbago with sciatica, left side Refilled cyclobenzaprine 5 mg PO TID PRN 14 tabs 0RF muscle spasm Coding Level of Care Code Est Pt Level 3 (32993) Diagnoses Left-sided low back pain with sciatica M54.42 Lumbar degenerative disc disease M51.36
[2023-07-27 10:12] VITALS: BP 120/74; PULSE 113; O2SAT 98
== END 2023-07-27 11:14 | disposition home or self-care (01) ==
PROVIDERS: PCP Internal Medicine; Visit Provider Nurse Practitioner Family
DX: M54.42 Lumbago with sciatica, left side (principal); M51.36 Other intervertebral disc degeneration, lumbar region; Z85.3 Personal history of malignant neoplasm of breast
CPT/HCPCS: 99213

== ENCOUNTER 2023-09-06 10:01 | Day surgery (SDC) | payer OTHER, SELFPAY ==
[2023-09-04 15:15] VITALS: BMI 27.9
--- NOTE | 2023-09-05 11:02 | P.CONAN_ITS ---
Documented by User: Salud Sharma NP 09/05/23 11:07 HPI - Anesthesia Eval Consult details Narrative: 58yo F for Upper Endoscopy and Colonoscopy PAF 2013 without recurrence. No anticoag. ON LICENSE OF [facility] Active Problems Active Problems: All Active Problems (Updated 07/27/23 @ 11:07 by ELA Stoner) Left-sided low back pain with sciatica (Acute) Snoring (Acute) Dysphagia (Acute) Insomnia (Acute) Otitis media (Acute) Constipation (Acute) Knee pain, left (Acute) Finger pain, right (Acute) Constipation (Acute) Impaired glucose tolerance (Acute) Upper back pain on left side (Acute) Tubular adenoma of colon (Acute) Annual physical exam (Acute) Menorrhagia (Acute) Postcoital bleeding (Acute) Vaginal discharge (Acute) Precordial chest pain (Acute) Lumbar degenerative disc disease (Acute) Tobacco abuse (Acute) Generalized anxiety disorder (Acute) Recurrent major depression (Acute) Hypercholesterolemia (Acute) GERD (gastroesophageal reflux disease) (Acute) Invasive ductal carcinoma of left breast (Acute) Paroxysmal atrial fibrillation (Acute) Past Medical History Medical History (Updated 07/27/23 @ 11:07 by ELA Stoner) Tobacco abuse Tubular adenoma of colon Recurrent major depression Carpal tunnel syndrome of left wrist Neuropathy of left ulnar nerve at wrist Lumbar degenerative disc disease Renal calculus, left Right ovarian cyst Stress incontinence Hypercholesterolemia GERD (gastroesophageal reflux disease) Generalized anxiety disorder Invasive ductal carcinoma of left breast Paroxysmal atrial fibrillation Insomnia Family History Family History Father Liver cancer Substance abuse Mother Heart disease Diabetes mellitus HTN (hypertension) CVD (cardiovascular disease) Brother HTN (hypertension) CVD (cardiovascular disease) Substance abuse Sister Breast cancer CVD (cardiovascular disease) Surgical History Surgical History (Updated 09/04/23 @ 15:07 by Alivia Pozo RN) Hx of dilation and curettage History of lumpectomy of left breast Social History Social History (Updated 07/03/23 @ 12:13 by Marlyn Krause MD) Housing: Apartment Alcohol intake: never Patient Tobacco Use Status: Current everyday Tobacco user Tobacco use type: Cigarette Cigarettes Per Day: 3 Years Smoked: quit 05/2022 e-Cigarette/Vaping Use: Never Used Second Hand Smoke Exposure: No service: No Current occupational status: employed Gender identity: Female Cognitive needs: No Hearing needs: No Vision needs: Yes Meds Allergies Allergy/AdvReac Type Severity Reaction Status Date / Time No Known Allergies Allergy Verified 07/26/23 12:13 [No Known Allergies*] Home Medications Medication Instructions Recorded Confirmed Last Taken Type buspirone 5 mg tablet 5 mg PO BID anxiety 09/04/23 09/04/23 Unknown History fluoxetine 10 mg capsule 10 mg PO BEDTIME 09/04/23 09/04/23 Unknown History zolpidem 5 mg tablet 5 mg PO BEDTIME PRN Insomnia 09/04/23 09/04/23 Unknown History Exam Exam Date and Time: September 05, 2023 1102 Height,Weight and Vital Signs: Height 4 ft 11 in Weight 62.596 kg Assessment and Plan Assessment Anesthesia Assessment: Chart Reviewed Documented by User: Jagdeep Cunha MD 09/06/23 16:47 PMFSH Past Medical History Medical History (Updated 07/27/23 @ 11:07 by ELA Stoner) Tobacco abuse Tubular adenoma of colon Recurrent major depression Carpal tunnel syndrome of left wrist Neuropathy of left ulnar nerve at wrist Lumbar degenerative disc disease Renal calculus, left Right ovarian cyst Stress incontinence Hypercholesterolemia GERD (gastroesophageal reflux disease) Generalized anxiety disorder Invasive ductal carcinoma of left breast Paroxysmal atrial fibrillation Insomnia Functional capacity: independent ambulation Family History Family History Father Liver cancer Substance abuse Mother Heart disease Diabetes mellitus HTN (hypertension) CVD (cardiovascular disease) Brother HTN (hypertension) CVD (cardiovascular disease) Substance abuse Sister Breast cancer CVD (cardiovascular disease) Family history of problems with anesthesia: No Surgical History Surgical History (Updated 09/04/23 @ 15:07 by Alivia Pozo RN) Hx of dilation and curettage History of lumpectomy of left breast History of Problems with Anesthesia: No Social History Social History (Updated 07/03/23 @ 12:13 by RAMON Polo Housing: Apartment Alcohol intake: never Patient Tobacco Use Status: Current everyday Tobacco user Tobacco use type: Cigarette Cigarettes Per Day: 3 Years Smoked: quit 05/2022 e-Cigarette/Vaping Use: Never Used Second Hand Smoke Exposure: No service: No Current occupational status: employed Gender identity: Female Cognitive needs: No Hearing needs: No Vision needs: Yes Meds Allergies Allergy/AdvReac Type Severity Reaction Status Date / Time No Known Allergies Allergy Verified 07/26/23 12:13 [No Known Allergies*] Home Medications Medication Instructions Recorded Confirmed Last Taken Type buspirone 5 mg tablet 5 mg PO BID anxiety 09/04/23 09/04/23 Unknown History fluoxetine 10 mg capsule 10 mg PO BEDTIME 09/04/23 09/04/23 Unknown History zolpidem 5 mg tablet 5 mg PO BEDTIME PRN Insomnia 09/04/23 09/04/23 Unknown History Exam Airway Mallampati Class: III Loose/Missing/Broken Teeth: Yes Assessment and Plan Assessment Anesthesia Assessment: Anesthesia Plan Discussed Final Anesthetic Review Family History of Problems with Anesthesia: No History of Problems with Anesthesia: No NPO: Yes ASA Class: III Final Preanesthetic Review: Meds/Allgs Chart Reviewed, Consent Obtained/Reviewed and Anes Risks/Benef Reviewed Patient Risk: Intermediate Procedure Risk: Intermediate Anesthetic Plan Anesthetic Plan: MAC: and Agree w/ Assess. and Plan Disposition: Standard PACU
[2023-09-06 10:48] VITALS: BP 127/85; PULSE 93; RESP 18; TEMP 36.1; O2SAT 98
[2023-09-06] MEDS: Lactated Ringers 1,000 ML 100 ML IVCONT (10:56)
--- NOTE | 2023-09-06 11:46 | MHC.SHP ---
Pre-Procedural Eval Section A Date of Service: 09/06/23 Section B Chief Complaint: Gastro-esophageal reflux disease without esophagit Details of Present Illness: screening and choking Relevant Family History (Specify if Yes): No Relevant Social History: Tobacco Use Present Medications: see Short Stay Collaborative assessment Medical History: Significant History (Tobacco abuse Tubular adenoma of colon Recurrent major depression Carpal tunnel syndrome of left wrist Neuropathy of left ulnar nerve at wrist Lumbar degenerative disc disease Renal calculus, left Right ovarian cyst Stress incontinence Hypercholesterolemia GERD (gastroesophageal reflux disease) Gene) History of Previous Operations: Relevant previous surgery/procedure and date(s) (Hx of dilation and curettage History of lumpectomy of left breast) Allergies: Allergies Allergy/AdvReac Type Severity Reaction Status Date / Time No Known Allergies Allergy Verified 07/26/23 12:13 [No Known Allergies*] Review of Systems Sugical H&P ROS: Negative: Constitution, Cardiovascular, Respiratory, Neurological, Psychiatric, Hem-Onc, Allergic/Immunologic, Gastrointestinal, Genitourinary, Musculoskeletal, Integumentary, Endocrine and Eyes/Ears/Nose/Throat Exam Surgical H&P Exam: Normal: HEENT, Normal: Heart, Normal: Lungs, Normal: Extremities, Normal: Abdomen, Normal: Skin and Normal: Neurological Plan Diagnosis/Plan: Unchanged I have reviewed the history and physical and performed a pertinent physical examination on my patient. No changes have occurred unless specified. EGD for choking and GERD concerns, colonoscopy for screening. Time Spent With Patient Time: Total time managing care of this patient today ____ minutes.
--- NOTE | 2023-09-06 12:02 | P.OP_ITS ---
Operative Note Operative Note Date of Service: 09/06/23 Narrative: Operative Information Procedure Description: EGD, Colonoscopy Indication: choking and screening colonoscopy Anesthesia: MAC FLEXIBLE TRANSORAL UPPER GASTROINTESTINAL ENDOSCOPY AND COLONOSCOPY PROCEDURE NOTE UPPER ENDOSCOPY Consent: Indications for the procedure and potential complications of bleeding, perforation, reaction to medications and missed diagnosis were discussed with the patient and informed consent was obtained. Instrument: Olympus GIF H 190 J mid size upper endoscope Monitoring: Vital signs and clinical assessment, continuous EKG monitoring, Pulse oximetry, Carbon Dioxide monitoring and blood pressure monitoring were done throughout the procedure. Procedure: The patient was placed in the left lateral decubitis position and pre-procedure medications were administered and a bite block was placed. The endoscope was inserted into the mouth and advanced under direct vision to the third part of duodenum. A careful inspection was made as the upper endoscope was withdrawn including a retroflexed examination of the proximal stomach; Findings and interventions are described below. Findings: Larynx:normal Esophagus: GE junction at 37 cm, diaphragm hiatus at 37 cm, bogginess and erythema, GEJ, bx taken --balloon dilation done at UES and LES to 20 mm, no tears seen Stomach: Patchy erythema . Biopsies were obtained. Grade 2 flap valve on retroflexed examination of the cardia. Duodenum: Mild erythema, bx taken Intervention: Biopsies as noted above, balloon dilation COLONOSCOPY Instrument: Olympus variable stiffness pediatric scope 190L Colonoscopy Monitoring: Vital signs and clinical assessment, continuous EKG monitoring, Pulse oximetry, Carbon Dioxide monitoring and blood pressure monitoring were done throughout the procedure. Colon withdrawal time was 20 minutes. Procedure: The patient was placed in the left lateral decubitis position and pre-procedure medications were administered. After a digital rectal examination of the ano-rectum, the video colonoscope was inserted into the rectum and advanced through the colon to the cecum/TI. The colonoscope was slowly withdrawn in a retrograde panoramic fashion and the colon mucosa was carefully examined including a retroflexed view of the rectum. Findings and interventions are described below. Procedure Difficulty: moderate Findings: Terminal Ileum-normal Cecum: granular appearing flat polyp 10-12 mm, lifted with eleview and then removed with cold snare, 4 clips for applied for hemostasis as well as hemospr ay, seemed to have stopped. Few AVM also noted. Ascending Colon: normal Transverse Colon -normal Descending Colon:normal Sigmoid Colon: normal Rectum: Retroflexion with small internal hemorrhoids, grade I Anorectum - normal Colon preparation: [place] Bowel Preparation Scale Right colon; 2 Transverse colon: 2 Left colon; 2 (0 = Unprepared colon segment with mucosa not seen due to solid stool that cannot be cleared. 1 = Portion of mucosa of the colon segment seen, but other areas of the colon segment not well seen due to staining, residual stool and/or opaque liquid. 2 = Minor amount of residual staining, small fragments of stool and/or opaque liquid, but mucosa of colon segment seen well. 3 = Entire mucosa of colon segment seen well with no residual staining, small fragments of stool or opaque liquid) Impression and Post Procedure Diagnosis: Endoscopy Findings: esophagitis gastritis duodenitis Colonoscopy Findings: polyp internal hemorrhoids AVM Plan: Await Pathology results Repeat Colonoscopy in 5 years due to polypoid lesion in cecum or earlier if clinically indicated High fiber diet leaflet avoid straining at stool, epsom salts and sitz bath, anusol supps or cream if H pylori pos then treat if not taking PPI may benefit from this can consider after bx results come back Above findings were reviewed with the patient and relevant handouts were provided if indicated.
[2023-09-06 13:05] VITALS: BP 154/95; PULSE 81; RESP 17; TEMP 36.1; O2SAT 100
[2023-09-06 13:21] VITALS: BP 151/85; PULSE 83; RESP 17; TEMP 36.4; O2SAT 99
== END 2023-09-06 14:02 | disposition home or self-care (01) ==
PROVIDERS: PCP Internal Medicine; Visit Provider Internal Medicine Gastroenterology
PROC: (CPT 43249; principal; 2023-09-06 11:40)
DX: K29.80 Duodenitis without bleeding (principal); K29.70 Gastritis, unspecified, without bleeding; K20.90 Esophagitis, unspecified without bleeding; K22.89 Other specified disease of esophagus; K21.9 Gastro-esophageal reflux disease without esophagitis; R13.10 Dysphagia, unspecified; Z12.11 Encounter for screening for malignant neoplasm of colon; K63.5 Polyp of colon; K55.20 Angiodysplasia of colon without hemorrhage; K64.0 First degree hemorrhoids; Z86.010 Personal history of colon polyps; K59.01 Slow transit constipation; E78.00 Pure hypercholesterolemia, unspecified; G47.00 Insomnia, unspecified; I48.0 Paroxysmal atrial fibrillation; F41.1 Generalized anxiety disorder; Z85.3 Personal history of malignant neoplasm of breast; Z87.891 Personal history of nicotine dependence
CPT/HCPCS: 43249; 43239; 45385; 45381; 88305; 88342; C1726; J2704; J3010

== ENCOUNTER → 2023-09-06 10:01 | Outpatient (BNV) | payer OTHER, SELFPAY | PROVIDERS: PCP Internal Medicine; Visit Provider Internal Medicine Gastroenterology | DX: Z12.11 Encounter for screening for malignant neoplasm of colon (principal); K29.70 Gastritis, unspecified, without bleeding; K29.90 Gastroduodenitis, unspecified, without bleeding; D12.0 Benign neoplasm of cecum; Q27.33 Arteriovenous malformation of digestive system vessel; K64.0 First degree hemorrhoids | CPT/HCPCS: 43249; 45385 ==

== ENCOUNTER 2023-09-18 08:25 | Outpatient (REF) | payer OTHER, SELFPAY | END 2023-09-18 08:26 | disposition home or self-care (01) | LOC: HO.XRAY 08:25 | PROVIDERS: PCP Internal Medicine; Visit Provider Internal Medicine | DX: Z13.89 Encounter for screening for other disorder (principal) ==

== ENCOUNTER 2023-09-20 11:40 | Outpatient (AMB) | payer OTHER, SELFPAY ==
--- NOTE | 2023-09-20 11:45 | A.OFFVIS_ITS ---
Intake Vital Signs 09/20/23 11:47 Height 4 ft 11 in Weight 130 lb 1.164 oz BMI 26.3 BP 141/80 H Blood Pressure Location Lt brachial Position Sitting Pulse 92 Intake Visit Reasons: S/p egd/colon Intake Note: Ольга presents in the office as a follow up egd and colo. CC: She states that she is not having any concerns at this time just here for the results to her procedures. Allergies No Known Allergies [No Known Allergies*] Allergy (Verified 09/20/23 11:47) HPI S/p egd/colon HPI Details LAST VISIT Constipation Will try PA for Linzess again. For now patient will try [id number] medication that was prescribed by her PCP. GERD (gastroesophageal reflux disease) Patient reports that her symptoms of acid reflux are only when she eats certain food. Discussed with patient avoiding dietary triggers and late night snacking. Staying upright for minimum 3 hours after meals discussed with patient. Screen for colon cancer History of tubular adenoma in September of 2018, recommendation was made to repeat colonoscopy in 3-5 years. Patient denies any ill effects with prep or anesthesia in the past. Denies any issues with the procedure. Patient denies any cardiac or respiratory symptoms. Denies history of sleep apnea. Not on any anticoagulation medications. With to expect before during and after procedure discussed with patient. The importance of clear liquid diet day before the procedure discussed as well as how to prep. I will see patient after the procedure, sooner on as needed basis. Patient is agreeable to this plan and verbalizes understanding of instructions. She was given the opportunity to ask questions and all questions answered. ? Thank you for allowing me to participate in her care Plan Medications New bisacodyl (Dulcolax (bisacodyl)) take 2 tabs at noon the day before your colonoscopy 10 mg (2 x 5 mg) PO ONCE 1 day 2 tabs 0RF Z12.11 - Encounter for screening for malignant neoplasm of colon polyethylene glycol 3350 (Miralax) As directed by gastroenterology department at [facility] 238 grams PO ONCE 238 grams 0RF Z12.11 - Encounter for screening for malignant neoplasm of colon UPPER ENDOSCOPY AND COLONOSCOPY Findings: Larynx:normal Esophagus: GE junction at 37 cm, diaphragm hiatus at 37 cm, bogginess and erythema, GEJ, bx taken --balloon dilation done at UES and LES to 20 mm, no tears seen Stomach: Patchy erythema . Biopsies were obtained. Grade 2 flap valve on retroflexed examination of the cardia. Duodenum: Mild erythema, bx taken Intervention: Biopsies as noted above, balloon dilation COLONOSCOPY Instrument: Olympus variable stiffness pediatric scope 190L Colonoscopy Monitoring: Vital signs and clinical assessment, continuous EKG monitoring, Pulse oximetry, Carbon Dioxide monitoring and blood pressure monitoring were done throughout the procedure. Colon withdrawal time was 20 minutes. Procedure: The patient was placed in the left lateral decubitis position and pre-procedure medications were administered. After a digital rectal examination of the ano-rectum, the video colonoscope was inserted into the rectum and advanced through the colon to the cecum/TI. The colonoscope was slowly withdrawn in a retrograde panoramic fashion and the colon mucosa was carefully examined including a retroflexed view of the rectum. Findings and interventions are described below. Procedure Difficulty: moderate Findings: Terminal Ileum-normal Cecum: granular appearing flat polyp 10-12 mm, lifted with eleview and then removed with cold snare, 4 clips for applied for hemostasis as well as hemospray, seemed to have stopped. Few AVM also noted. Ascending Colon: normal Transverse Colon -normal Descending Colon:normal Sigmoid Colon: normal Rectum: Retroflexion with small internal hemorrhoids, grade I Anorectum - normal Colon preparation: [place] Bowel Preparation Scale Right colon; 2 Transverse colon: 2 Left colon; 2 (0 = Unprepared colon segment with mucos a not seen due to solid stool that cannot be cleared. 1 = Portion of mucosa of the colon segme nt seen, but other areas of the colon segment not well seen due to staining, residual stool and/or opaque liquid. 2 = Minor amount of residual staining, s mall fragments of stool and/or opaque liquid, but mucosa of colon segment seen well. 3 = Entire mucosa of colon segment seen well with no residual staining, small fragments of stool or opaque liquid) Impression and Post Procedure Diagnosis: Endoscopy Findings: esophagitis gastritis duodenitis Colonoscopy Findings: polyp internal hemorrhoids AVM Plan: Await Pathology results Repeat Colonoscopy in 5 years due to polypoid lesion in cecum or earlier if clinically indicated High fiber diet leaflet avoid straining at stool, epsom salts and sitz bath, anusol supps or cream if H pylori pos then treat if not taking PPI may benefit from this can consider after bx results come back PATHOLOGY: Diagnosis A. Duodenum, biopsies: Chronic nonspecific duodenitis with foveolar metaplasia; no morphologic evidence of celiac disease. B. Stomach, biopsies: Mild chronic inactive gastritis; no evidence of H. pylori, intestinal metaplasia or dysplasia. C. G.E junction, biopsies: Inflamed squamoglandular junctional mucosa with reactive changes, no evidence of intestinal metaplasia or dysplasia. D. Distal esophagus, biopsies: Esophageal squamous mucosa with no diagnostic abnormality; no evidence of active esophagitis, fungal organisms, dysplasia or malignancy. E. Cecum, polypectomy: Colonic mucosa with mild surface hyperplastic changes, no evidence of adenoma on multiple levels examined TODAY'S VISIT Patient is here today for follow-up in to discuss upper endoscopy and colonoscopy results. Patient denies any ill effects from prep, anesthesia or procedure itself. Patient reports that she has been feeling well. She is moving her bowels better now that she is taking Linzess. Denies any melena, hematochezia, unintentional weight loss or bone like stools. Patient reports occasional dyspepsia without dysphagia or odynophagia. Patient is not taking any PPI set this moment. Reports occasional acid reflux depending on what she eats. Denies any other GI concerning symptoms. Upper endoscopy and colonoscopy results discussed with patient. [facility] Medical History (Updated 09/20/23 @ 12:06 by Carmelina Ogden [facility]) Tobacco abuse Tubular adenoma of colon Recurrent major depression Carpal tunnel syndrome of left wrist Neuropathy of left ulnar nerve at wrist Lumbar degenerative disc disease Renal calculus, left Right ovarian cyst Stress incontinence Hypercholesterolemia GERD (gastroesophageal reflux disease) Generalized anxiety disorder Invasive ductal carcinoma of left breast Paroxysmal atrial fibrillation Insomnia Surgical History (Updated 09/20/23 @ 11:47 by BRENDAN Miles) Hx of colonoscopy History of esophagogastroduodenoscopy (EGD) Hx of dilation and curettage History of lumpectomy of left breast Family History Father Liver cancer Substance abuse Mother Heart disease Diabetes mellitus HTN (hypertension) CVD (cardiovascular disease) Brother HTN (hypertension) CVD (cardiovascular disease) Substance abuse Sister Breast cancer CVD (cardiovascular disease) Social History (Updated 07/03/23 @ 12:13 by Marlyn Krause MD) Housing: Apartment Alcohol intake: never Comment: medicated in pacu Patient Tobacco Use Status: Current everyday Tobacco user Tobacco use type: Cigarette Cigarettes Per Day: 3 Years Smoked: quit 05/2022 e-Cigarette/Vaping Use: Never Used Second Hand Smoke Exposure: No service: No Current occupational status: employed Gender identity: Female Cognitive needs: No Hearing needs: No Vision needs: Yes Female Reproductive History Menstrual Age of Menarche: 13 Review of Systems Const Denies weight gain and Denies weight loss ENT Reports no additional complaints, Denies dysphagia and Denies odynophagia Card Reports no additional complaints Resp Reports no additional complaints GI Denies abdominal pain, Denies belching, Denies melena, Denies bloating, Denies change in bowel habits, Denies dysphagia, Denies excessive flatus, Denies dyspepsia, Reports heartburn, Denies diarrhea, Denies loose stools, Denies nausea, Denies odynophagia and Denies vomiting Reports no additional complaints Musc Reports no additional complaints Neuro Reports no additional complaints Psych Reports no additional complaints Endo Reports no additional complaints Physical Exam Vital Signs: BMI result Body Mass Index 26.3 Const General: healthy appearing, no acute distress and well developed Nutritional Appearance: well nourished Orientation/consciousness: patient oriented x3 HEENT Head: Yes normal to inspection, Yes normocephalic and Yes atraumatic Face and sinus: Yes normal facial exam Mouth: Normal oral and palatal mucosa present Throat: Yes posterior oropharynx normal, Yes tonsils normal and Yes uvula midline Eyes General: appearance normal, both eyes and all related structures Neck Neck: Yes normal visual inspection, Yes full ROM and Yes trachea midline Thyroid: Thyroid normal Resp Effort & Inspection: normal respiratory effort, able to speak in complete sentences, no tracheal deviation and symmetric chest movement Auscultation: clear to auscultation bilaterally Cardio Rate: regular rate Heart sounds: S1 normal heart sound present and S2 normal heart sound present GI Inspection: Yes normal to inspection and No distended Palpation (GI): Soft to palpation, not firm, nontender and No hepatosplenomegaly present Auscultation: normal bowel sounds General: Yes no CVA tenderness Back/Spine/Pelvis Back: no CVA tenderness Skin General skin exam: elasticity normal, turgor normal and dry skin Neuro General: patient oriented x3 Psych Appearance: grossly normal Mental Status: mental status grossly normal Affect: normal affect Assessment & Plan Assessment & Plan (1) Dysphagia: Code(s): R13.10 - Dysphagia, unspecified Qualifiers: Dysphagia type: other dysphagia Qualified Code(s): R13.19 - Other dysphagia (2) Constipation: Code(s): K59.00 - Constipation, unspecified Qualifiers: Constipation type: slow transit constipation Qualified Code(s): K59.01 - Slow transit constipation (3) Tubular adenoma of colon: Code(s): D12.6 - Benign neoplasm of colon, unspecified (4) Status post colonoscopy: Code(s): Z98.890 - Other specified postprocedural states (5) Gastritis: Code(s): K29.70 - Gastritis, unspecified, without bleeding Qualifiers: Chronicity: chronic Gastritis bleeding: without bleeding Gastritis type: superficial Qualified Code(s): K29.30 - Chronic superficial gastritis without bleeding Plan Patient will continue taking Linzess, states feeling better and moving her bowels better. Will start taking omeprazole 20 mg in the morning. Patient is complaining of acid reflux, mild inactive gastritis found. Discussed with patient avoiding dietary triggers only then snacking. Staying upright for minimal 3 hours after meals discussed with patient. Tubular adenoma found without high-grade dysplasia or carcinoma. Patient will return for colorectal screening in 5 years, sooner if clinically necessary. I will see patient in 3 months, sooner on as needed basis. Patient is agreeable to this plan and verbalizes understanding of instructions. She was given the opportunity to ask questions and all questions answered. Thank you for allowing me to participate in her care Medications: New omeprazole 20 mg PO DAILY 90 caps 2RF K21.9 - Gastro-esophageal reflux disease without esophagitis Refilled linaclotide (Linzess) 145 mcg PO DAILY 90 caps 2RF Coding Level of Care Code Est Pt Level 3 (22254) Diagnoses Other dysphagia R13.19 Dysphagia type: other dysphagia Slow transit constipation K59.01 Constipation type: slow transit constipation Tubular adenoma of colon D12.6 Status post colonoscopy Z98.890 Chronic superficial gastritis without bleeding K29.30 Chronicity: chronic Gastritis bleeding: without bleeding Gastritis type: superficial Time Spent (min) 35 Comment 20 minutes spent with patient and additional 15 minute spent reviewing her records
[2023-09-20 11:47] VITALS: BP 141/80; PULSE 92; BMI 26.3
== END 2023-09-20 14:02 | disposition home or self-care (01) ==
PROVIDERS: PCP Internal Medicine; Visit Provider Nurse Practitioner Family
DX: R13.19 Other dysphagia (principal); K59.01 Slow transit constipation; D12.6 Benign neoplasm of colon, unspecified; Z98.890 Other specified postprocedural states; K29.30 Chronic superficial gastritis without bleeding
CPT/HCPCS: 99213

== ENCOUNTER → 2023-09-20 11:40 | Outpatient (BNVA) | payer OTHER, SELFPAY | PROVIDERS: PCP Internal Medicine; Visit Provider Nurse Practitioner Family | DX: K59.01 Slow transit constipation (principal); K29.30 Chronic superficial gastritis without bleeding; R13.19 Other dysphagia; D12.6 Benign neoplasm of colon, unspecified; Z98.890 Other specified postprocedural states | CPT/HCPCS: 99212 ==

== ENCOUNTER 2023-10-03 12:00 | Outpatient (AMB) | payer OTHER, SELFPAY ==
--- NOTE | 2023-10-03 12:45 | A.OFFPC_ITS ---
Vital Signs 3 10/03/23 12:46 10/03/23 12:51 Height 4 ft 11 in Weight 131 lb 4 oz BMI 26.5 BP 140/90 H 130/90 H Blood Pressure Location Lt brachial Lt brachial Position Sitting Sitting Pulse 99 Pulse Source Pulse Oximeter Pulse Oximetry (%) 98 Oxygen Delivery Method Room Air Intake Visit Reasons: lump on left breast Intake Note: Patient is here today for lump in left breast Principal Statistical Scientist Required: No Community Health Coordinator: Not Required per policy Accompanied by: Self / Same As Patient Allergies No Known Allergies [No Known Allergies*] Allergy (Verified 10/03/23 12:46) Tobacco use date assessed: 10/03/23 Dental Screening Dental Screen Date: 10/03/23 Did you have a dental visit in the last 12 months?: Yes Did you have a dental problem in the last 6 months where you did not have access to dental care?: No Was dental information given to patient?: Patient has dentist HPI lump on left breast 2 HPI0 Details 58-year-old previous smoker female comin g in for an acute problem. Patient has a history of invasive ductal carcinoma of the left breast August 2017 has had radiation and tamoxifen, GERD hypercholesterolemia recurrent major depression with generalized anxiety disorder impaired glucose tolerance. Noted a few days ago having a mass on the left breast prompting for consultation. March 2023 last mammogram [facility] Medical History (Updated 10/03/23 @ 13:30 by Marlyn Krause MD) Tobacco abuse Tubular adenoma of colon Recurrent major depression Carpal tunnel syndrome of left wrist Neuropathy of left ulnar nerve at wrist Lumbar degenerative disc disease Renal calculus, left Right ovarian cyst Stress incontinence Hypercholesterolemia GERD (gastroesophageal reflux disease) Generalized anxiety disorder Invasive ductal carcinoma of left breast Paroxysmal atrial fibrillation Insomnia Surgical History (Updated 10/03/23 @ 12:50 by BRENDAN Wilburn) History of endoscopy Hx of colonoscopy History of esophagogastroduodenoscopy (EGD) Hx of dilation and curettage History of lumpectomy of left breast Family History Father Liver cancer Substance abuse Mother Heart disease Diabetes mellitus HTN (hypertension) CVD (cardiovascular disease) Brother HTN (hypertension) CVD (cardiovascular disease) Substance abuse Sister Breast cancer CVD (cardiovascular disease) Social History (Reviewed 10/03/23 @ 12:45 by STEVEN Wilburn Housing: Apartment Alcohol intake: never Comment: medicated in pacu Patient Tobacco Use Status: Current someday Tobacco user Tobacco use type: Cigarette Cigarettes Per Day: 3 Years Smoked: quit 05/2022 e-Cigarette/Vaping Use: Never Used Second Hand Smoke Exposure: Yes service: No Current occupational status: employed Gender identity: Female Cognitive needs: No Hearing needs: No Vision needs: Yes Female Reproductive History Menstrual Age of Menarche: 13 Questionnaire Thrive Questionnaire Date Thrive assessed: 07/27/23 SHAYY-7 AMB Questionnaire SHAYY-7 Date SHAYY - 7 assessed: 07/27/23 Source: Developed by Drs. Vitaliy Elder, Preeti Orozco, Obey Pitts and colleagues, with an educational torri from [employer]. Physical exam (Primary Care) Vital Signs: Last Vital Signs Pulse 99 10/03/23 12:46 BP 130/90 H 10/03/23 12:51 Pulse Ox 98 10/03/23 12:46 Oxygen Delivery Method Room Air 10/03/23 12:46 BMI result Body Mass Index 26.5 Tobacco/Smoking Status: Tobacco use Status Tobacco use date assessed 10/03/23 10/03/23 12:52 Patient Tobacco Use Status Current someday Tobacco 10/03/23 12:52 Tobacco use type Cigarette 10/03/23 12:52 e-Cigarette/Vaping Use Never Used 10/03/23 12:52 Thrive Assessment: Date of Thrive Assessment Date Thrive assessed 07/27/23 10/03/23 12:52 Chest Chest/axillae images: 2 1. Left breast mass noted 09:00 o'clock area 3 cm by 4 cm attached mass Assessment and Plan Assessment & Plan (1) Invasive ductal carcinoma of left breast: Comment: August 2017 radiation and tamoxifen Code(s): C50.912 - Malignant neoplasm of unspecified site of left female breast (2) Left breast mass: Code(s): N63.20 - Unspecified lump in the left breast, unspecified quadrant Plan: Diagnostic mammogram and Ultrasound requested Orders: Orders 2 MM tomosynthesis diagnostic BI Today N63.20 - Unspecified lump in the left breast, unspecified quadrant US breast LT limited Today N63.20 - Unspecified lump in the left breast, unspecified quadrant Coding Level of Care Code Est Pt Level 3 (48191) Diagnoses Invasive ductal carcinoma of left breast C50.912 Left breast mass N63.20
[2023-10-03 12:46] VITALS: BP 140/90; PULSE 99; O2SAT 98; BMI 26.5
[2023-10-03 12:51] VITALS: BP 130/90
== END 2023-10-03 13:33 | disposition home or self-care (01) ==
PROVIDERS: PCP Internal Medicine; Visit Provider Internal Medicine
DX: C50.912 Malignant neoplasm of unspecified site of left female breast (principal); N63.23 Unspecified lump in the left breast, lower outer quadrant
CPT/HCPCS: 99213

== ENCOUNTER 2023-10-09 10:17 | Outpatient (REF) | payer OTHER, SELFPAY ==
--- NOTE | ~2023-10-09 | FL_ITS ---
EXAMINATION: XR FLUOROSCOPY UPPER GI WITH AIR CLINICAL INFORMATION: Dysphagia, Reflux, epigastric pain COMPARISON: None TECHNIQUE: Fluoroscopic air contrast upper GI examination was performed utilizing standard techniques with thin and thick barium and effervescent granules. Numerous spot images were obtained. FINDINGS: Lateral cine images of the oropharynx and hypopharynx demonstrate normal swallow mechanism with normal epiglottic inversion and soft palate elevation. No tracheal penetration, glottic or subglottic aspiration identified. No nasopharyngeal reflux present. Hypopharyngeal structures appear normal without evidence of mass or diverticulum. There was no significant cricopharyngeal achalasia. Dual and single contrast images of the esophagus demonstrate normal caliber, contour, and mucosal pattern. No evidence of stricture, mass, or ulcerations identified. Esophageal peristalsis was normal. A small type I hiatal hernia is present. Gastroesophageal reflux is seen up to the thoracic inlet. Dual contrast and single contrast images of the stomach demonstrated normal contour and mucosal pattern without evidence of mass, ulceration, or other abnormality. Contrast freely passed into the gastric antrum and duodenal bulb without delay. Single and air-contrast images of the duodenal bulb demonstrate no abnormality. The duodenal sweep has a normal appearance, course, and mucosal fold appearance. The imaged proximal jejunum has a normal fold pattern and caliber. FLUOROSCOPY TIME: 2 minutes 34 seconds Number of Spot Images: 6 Number of Cine: 10 DOSE AREA PRODUCT: 1100 uGy-m2 (microgray-meter squared) FL/FL upper GI w air w Ba Swallow IMPRESSION: 1. Small type I hiatal hernia 2. Gastroesophageal reflux This procedure was performed by Davian Booker PA-C, and supervised by Dr. Spencer
== END 2023-10-09 10:18 | disposition home or self-care (01) ==
LOC: HO.XRAY 10:17
PROVIDERS: PCP Internal Medicine; Visit Provider Internal Medicine
DX: R13.10 Dysphagia, unspecified (principal)
CPT/HCPCS: 74246

== ENCOUNTER → 2023-10-09 10:20 | Outpatient (BNV) | payer OTHER, SELFPAY | PROVIDERS: PCP Internal Medicine; Visit Provider Radiology Diagnostic Radiology | DX: R13.10 Dysphagia, unspecified (principal); K21.9 Gastro-esophageal reflux disease without esophagitis | CPT/HCPCS: 74246 ==

== ENCOUNTER 2023-10-11 12:45 | Outpatient (REF) | payer OTHER, SELFPAY ==
--- NOTE | ~2023-10-11 | MM_ITS ---
EXAMINATION: MM DIAGNOSTIC DIGITAL BREAST TOMOSYNTHESIS, LEFT US BREAST LIMITED, LEFT CLINICAL INFORMATION: Left breast IDC status post lumpectomy 09/25/2017. Patient complaining of lump in left breast approximate 9:00 axis, anterior one third, measuring 3 x 4 cm approximately as per patient's physician. COMPARISON: Mammography: 04/05/2023, 03/30/2022, 03/26/2021, 09/10/2019, 01/10/2019 TECHNIQUE: Digital breast tomosynthesis is performed in the following views: Full-field left 3-D cc view, 3-D full-field left MLO view, 3-D full-field left ML view, 3-D spot compression MLO view, and CC view. FINDINGS: There are scattered areas of fibroglandular density (ACR BI-RADS breast composition Category b). There is parenchymal scarring in the left breast approximate 2:00 location, posterior one third with multiple biopsy clips present. This appears unchanged. No mammographic abnormality is identified in the area of palpable concern in the 7-11:00 axis. ULTRASOUND: Targeted left breast ultrasound spanning the 7-11 axes in the region of palpable concern demonstrates no evidence of mass, cystic abnormality, abnormal shadowing, and a small amount of linear type tissue scarring. No imaging correlate for the area of palpable concern. MM/MM tomosynthesis diagnostic LT IMPRESSION: There are no findings suspicious for malignancy in the left breast. Palpable focus of concern in the left breast 9:00 axis shows no imaging correlate. Recommend clinical management. Otherwise, recommend returning to routine annual screening in March 2024. ASSESSMENT: BI-RADS BI-RADS 2 - Benign Findings RECOMMENDATION: 1. Patient should be managed based on the clinical impression. Decision to proceed with biopsy should be based on clinical grounds and degree of clinical concern. 2. Otherwise, routine annual screening mammography. Results were provided to the patient at time of visit by the technologist. This patient's information was entered into a reminder system with a target due date for their next mammogram.
== END 2023-10-11 12:46 | disposition home or self-care (01) ==
LOC: HO.MAMMO 12:45
PROVIDERS: PCP Internal Medicine; Visit Provider Internal Medicine
DX: N63.25 Unspecified lump in the left breast, overlapping quadrants (principal)
CPT/HCPCS: 76642; 77061; 77065

== ENCOUNTER → 2023-10-11 13:00 | Outpatient (BNV) | payer OTHER, SELFPAY | PROVIDERS: PCP Internal Medicine; Visit Provider Radiology Diagnostic Radiology | DX: N63.25 Unspecified lump in the left breast, overlapping quadrants (principal) | CPT/HCPCS: 76642; 77061; 77065 ==

== ENCOUNTER 2023-10-25 10:11 | Outpatient (AMB) | payer OTHER, SELFPAY ==
[2023-10-25 10:14] VITALS: BP 122/80; PULSE 84; O2SAT 99; BMI 26.7
--- NOTE | 2023-10-25 10:14 | MHC.PC.OV ---
Vital Signs 10/25/23 10:14 Height 4 ft 11 in Weight 132 lb 0.4 oz BMI 26.7 BP 122/80 Blood Pressure Location Lt brachial Position Sitting Pulse 84 Pulse Source Pulse Oximeter Pulse Oximetry (%) 99 Oxygen Delivery Method Room Air Intake Visit Reasons: 3 month f/u Tool Worker Required: No Allergies No Known Allergies [No Known Allergies*] Allergy (Verified 10/25/23 10:14) Tobacco use date assessed: 10/25/23 Dental Screening Dental Screen Date: 10/25/23 Did you have a dental visit in the last 12 months?: Yes Did you have a dental problem in the last 6 months where you did not have access to dental care?: No Was dental information given to patient?: Patient has dentist HPI 3 month f/u HPI Details 58-year-old female smoker with a history of breast cancer left atrial fibrillation GERD hypercholesterolemia generalized anxiety disorder impaired glucose tolerance coming in for follow-up. Concern about left breast mass and an ultrasound was requested. Patient is up-to-date with mammogram colonoscopy.. Mammogram results no suspicious findings for malignancy in the left breast. Patient also complained of having dysphagia and a barium swallow was requested showing a small type hiatal hernia and GERD [facility] Medical History (Updated 10/25/23 @ 10:23 by Marlyn Krause MD) Dysphagia Tobacco abuse Tubular adenoma of colon Recurrent major depression Carpal tunnel syndrome of left wrist Neuropathy of left ulnar nerve at wrist Lumbar degenerative disc disease Renal calculus, left Right ovarian cyst Stress incontinence Hypercholesterolemia GERD (gastroesophageal reflux disease) Generalized anxiety disorder Invasive ductal carcinoma of left breast Paroxysmal atrial fibrillation Insomnia Surgical History (Updated 10/03/23 @ 12:50 by BRENDAN Wilburn) History of endoscopy Hx of colonoscopy History of esophagogastroduodenoscopy (EGD) Hx of dilation and curettage History of lumpectomy of left breast Family History Father Liver cancer Substance abuse Mother Heart disease Diabetes mellitus HTN (hypertension) CVD (cardiovascular disease) Brother HTN (hypertension) CVD (cardiovascular disease) Substance abuse Sister Breast cancer CVD (cardiovascular disease) Social History Housing: Apartment Alcohol intake: never Comment: medicated in pacu Patient Tobacco Use Status: Current someday Tobacco user Tobacco use type: Cigarette Cigarettes Per Day: 3 Years Smoked: quit 05/2022 Packs per year/per ci.00 e-Cigarette/Vaping Use: Never Used Second Hand Smoke Exposure: Yes service: No Current occupational status: employed Gender identity: Female Cognitive needs: No Hearing needs: No Vision needs: Yes Female Reproductive History Menstrual Age of Menarche: 13 Questionnaire PHQ-9 Over the last 2 weeks, how often have you been bothered by any of the following problems? 1. Little interest or pleasure in doing things: not at all 2. Feeling down, depressed, or hopeless: not at all 3. Trouble falling or staying asleep, or sleeping too much: not at all 4. Feeling tired or having little energy: not at all 5. Poor appetite or overeating: not at all 6. Feeling bad about yourself - or that you are a failure or have let yourself or your family down: not at all 7. Trouble concentrating on things, such as reading the newspaper or watching television: not at all 8. Moving or speaking so slowly that other people could have noticed. Or the opposite - being so fidgety or restless that you have been moving around a lot more than usual: not at all 9. Thoughts that you would be better off or of hurting yourself in some way: not at all Total score: 0 Depression Screening Interpretation: Negative Depression Screening Done: Yes Source: Developed by Drs. Vitaliy Elder, Preeti Orozco, Obey Pitts and colleagues, with an educational torri from [employer]. Thrive Questionnaire Date Thrive assessed: 07/27/23 AUDIT C Alcohol Use Questionnaire (AUDIT-C) 1. How often do you have a drink containing alcohol?: Monthly or less 2. How many drinks containing alcohol do you have on a typical day when you are drinking?: 1 or 2 3. How often do you have six or more drinks on one occasion?: Never Total Score: 1 SHAYY-7 AMB Questionnaire SHAYY-7 Date SHAYY - 7 assessed: 10/25/23 Feeling nervous, anxious, or on edge: 0 = Not at all Not being able to stop or control worryin = Not at all Worrying too much about different things: 0 = Not at all Trouble relaxin = Not at all Being so restless that it is hard to sit still: 0 = Not at all Becoming easily annoyed or irritable: 0 = Not at all Feeling afraid as if something awful might happen: 0 = Not at all Total SHAYY-7 score (0-4 normal; 5-9 mild; 10-14 moderate; 15-21 severe): 0 Source: Developed by Drs. Vitaliy Elder, Preeti Orozco, Obey Pitts and colleagues, with an educational torri from [employer]. Physical exam (Primary Care) Vital Signs: Last Vital Signs Pulse 84 10/25/23 10:14 BP 122/80 10/25/23 10:14 Pulse Ox 99 10/25/23 10:14 Oxygen Delivery Method Room Air 10/25/23 10:14 BMI result Body Mass Index 26.7 Tobacco/Smoking Status: Tobacco use Status Tobacco use date assessed 10/25/23 10/25/23 10:15 Patient Tobacco Use Status Current someday Tobacco 10/25/23 10:15 Tobacco use type Cigarette 10/25/23 10:15 e-Cigarette/Vaping Use Never Used 10/25/23 10:15 PHQ-9: PHQ-9 Score PHQ-9: Total score 0 10/25/23 10:15 Depression Screening Interpretation: Negative Thrive Assessment: Date of Thrive Assessment Date Thrive assessed 07/27/23 10/25/23 10:15 Const General: alert; No acute distress Eyes Conjunctivae: conjunctivae normal Resp Auscultation: clear to auscultation bilaterally Cardio Rate: regular rate Rhythm: regular rhythm GI Inspection: Yes normal to inspection Extrem General: Yes normal to inspection and No edema Assessment and Plan Assessment & Plan (1) Tobacco abuse: Comment: stopped mid April 2022, still smoking 3x a day 06/2023 Code(s): Z72.0 - Tobacco use Plan: Patient is strongly advised to stop smoking! (2) Invasive ductal carcinoma of left breast: Comment: August 2017 radiation and tamoxifen Code(s): C50.912 - Malignant neoplasm of unspecified site of left female breast Plan: Concern about a breast mass ultrasound as well as mammogram done revealed negative results September 2023 (3) GERD (gastroesophageal reflux disease): Comment: September 2023 Code(s): K21.9 - Gastro-esophageal reflux disease without esophagitis Qualifiers: Esophagitis presence: esophagitis presence not specified Qualified Code(s): K21.9 - Gastro-esophageal reflux disease without esophagitis Plan: Avoid the foods that causes that usually spicy foods, tomato products, juices, coffee, soda and foods that your sensitive to. After eating do not lie down, allow 3-4 hours before in lie down. And keep the head of bed above 30 degrees to avoid the acid from going up. Stop smoking. Megan swallow showing hiatal hernia while (4) Hypercholesterolemia: Code(s): E78.00 - Pure hypercholesterolemia, unspecified Plan: Avoid fried foods, chicken skin, eggs, butter margarine, pastries and meat. Be it pork or beef they have a lot of cholesterol LDL goal of less than 130 and triglyceride of less than 150 patient needs blood work requested (5) Generalized anxiety disorder: Comment: counselling [facility] Code(s): F41.1 - Generalized anxiety disorder Plan: Continue with present medication and counseling (6) Impaired glucose tolerance: Code(s): R73.02 - Impaired glucose tolerance (oral) Plan: Decrease the amount of carbohydrate intake, pasta, bread, rice and potatoes are all sugar and that is aside from all the sweet stuff, remember that fruits are good but they are Sweet also. Blood work requested Coding Level of Care Code Est Pt Level 4 (54830) Diagnoses Tobacco abuse Z72.0 Invasive ductal carcinoma of left breast C50.912 Gastroesophageal reflux disease, unspecified whether esophagitis present K21.9 Esophagitis presence: esophagitis presence not specified Hypercholesterolemia E78.00 Generalized anxiety disorder F41.1 Impaired glucose tolerance R73.02
== END 2023-10-25 10:36 | disposition home or self-care (01) ==
PROVIDERS: PCP Internal Medicine; Visit Provider Internal Medicine
DX: C50.912 Malignant neoplasm of unspecified site of left female breast (principal); K21.9 Gastro-esophageal reflux disease without esophagitis; E78.00 Pure hypercholesterolemia, unspecified; F41.1 Generalized anxiety disorder; R73.02 Impaired glucose tolerance (oral); Z72.0 Tobacco use
CPT/HCPCS: 99214

== ENCOUNTER 2024-02-05 10:47 | Outpatient (AMB) | payer OTHER, SELFPAY ==
[2024-02-05 10:53] VITALS: BP 122/76; PULSE 92; O2SAT 98; BMI 26.1
--- NOTE | 2024-02-05 10:53 | MHC.PC.OV ---
Vital Signs 02/05/24 10:53 Height 4 ft 11 in Weight 129 lb BMI 26.1 BP 122/76 Blood Pressure Location Lt brachial Position Sitting Pulse 92 Pulse Source Pulse Oximeter Pulse Oximetry (%) 98 Oxygen Delivery Method Room Air Intake Visit Reasons: cholesterol, gerd Allergies No Known Allergies [No Known Allergies*] Allergy (Verified 02/05/24 10:54) Medication List - Last Reconciled 02/05/24 by Marlyn Krause MD buspirone 5 mg PO BID cyclobenzaprine 5 mg PO TID PRN fluoxetine 10 mg PO BEDTIME ibuprofen 600 mg PO Q8H PRN lidocaine 5% (Lidoderm) 1 patch topical DAILY linaclotide (Linzess) 145 mcg PO DAILY lorazepam 0.5 mg PO DAILY PRN miscellaneous medical supply 1 ea miscellaneous ONCE omeprazole 20 mg PO DAILY sennosides-docusate sodium 8.6-50 mg (Senna-S) 3 tab-caps (3 x 8.6-50 mg) PO BEDTIME 90 days zolpidem 5 mg PO BEDTIME PRN Tobacco use date assessed: 02/05/24 Dental Screening Dental Screen Date: 02/05/24 Did you have a dental visit in the last 12 months?: No Did you have a dental problem in the last 6 months where you did not have access to dental care?: No Was dental information given to patient?: Patient has dentist HPI cholesterol, gerd HPI Details 59-year-old female with left breast cancer GERD hypercholesterolemia generalized anxiety disorder and impaired glucose tolerance last seen in October 2023. Mammogram is up-to-date March 2023 colonoscopy is up-to-date August 2023 [facility] Medical History (Updated 10/25/23 @ 10:23 by Marlyn Krause MD) Dysphagia Tobacco abuse Tubular adenoma of colon Recurrent major depression Carpal tunnel syndrome of left wrist Neuropathy of left ulnar nerve at wrist Lumbar degenerative disc disease Renal calculus, left Right ovarian cyst Stress incontinence Hypercholesterolemia GERD (gastroesophageal reflux disease) Generalized anxiety disorder Invasive ductal carcinoma of left breast Paroxysmal atrial fibrillation Insomnia Surgical History (Updated 10/03/23 @ 12:50 by BRENDAN Wilburn) History of endoscopy Hx of colonoscopy History of esophagogastroduodenoscopy (EGD) Hx of dilation and curettage History of lumpectomy of left breast Family History Father Liver cancer Substance abuse Mother Heart disease Diabetes mellitus HTN (hypertension) CVD (cardiovascular disease) Brother HTN (hypertension) CVD (cardiovascular disease) Substance abuse Sister Breast cancer CVD (cardiovascular disease) Social History Housing: Apartment Alcohol intake: never Comment: medicated in pacu Patient Tobacco Use Status: Current someday Tobacco user Tobacco use type: Cigarette Cigarettes Per Day: 3 Years Smoked: quit 05/2022 e-Cigarette/Vaping Use: Never Used Second Hand Smoke Exposure: Yes service: No Current occupational status: employed Gender identity: Female Cognitive needs: No Hearing needs: No Vision needs: Yes Female Reproductive History Menstrual Age of Menarche: 13 Questionnaire PHQ-9 Over the last 2 weeks, how often have you been bothered by any of the following problems? 1. Little interest or pleasure in doing things: not at all 2. Feeling down, depressed, or hopeless: not at all 3. Trouble falling or staying asleep, or sleeping too much: not at all 4. Feeling tired or having little energy: not at all 5. Poor appetite or overeating: not at all 6. Feeling bad about yourself - or that you are a failure or have let yourself or your family down: not at all 7. Trouble concentrating on things, such as reading the newspaper or watching television: not at all 8. Moving or speaking so slowly that other people could have noticed. Or the opposite - being so fidgety or restless that you have been moving around a lot more than usual: not at all 9. Thoughts that you would be better off or of hurting yourself in some way: not at all Total score: 0 Depression Screening Interpretation: Negative Depression Screening Done: Yes Source: Developed by Drs. Vitaliy Elder, Preeti Orozco, Obey Pitts and colleagues, with an educational torri from [email or web address]. Thrive Questionnaire Date Thrive assessed: 02/05/24 I am a: Patient What is your living situation today?: I have a steady place to live Within the past 12 months, did the food you bought not last and you didn't have the money to get more?: Never true Within the past 12 months, did you worry whether your food would run out before you got money to buy more?: Never true Do you have trouble paying for medicines?: No Do you have trouble getting transportation to medical appointments?: No Do you have trouble paying your heating and electricity bill?: No Do you have trouble taking care of your child, family member or friend?: No Do you have trouble with day-to-day activities such as bathing, preparing meals, shopping, managing finances, etc.?: No Are you currently unemployed and looking for a job?: No Are you interested in more education?: No Currently or been in a relationship where the following occur: no concerns reported THRIVE Score: 0 AUDIT C Alcohol Use Questionnaire (AUDIT-C) 1. How often do you have a drink containing alcohol?: Monthly or less 2. How many drinks containing alcohol do you have on a typical day when you are drinking?: 1 or 2 3. How often do you have six or more drinks on one occasion?: Never Total Score: 1 SHAYY-7 AMB Questionnaire SHAYY-7 Date SHAYY - 7 assessed: 02/05/24 Feeling nervous, anxious, or on edge: 1 = Several days Not being able to stop or control worryin = Several days Worrying too much about different things: 1 = Several days Trouble relaxin = Not at all Being so restless that it is hard to sit still: 0 = Not at all Becoming easily annoyed or irritable: 0 = Not at all Feeling afraid as if something awful might happen: 0 = Not at all Total SHAYY-7 score (0-4 normal; 5-9 mild; 10-14 moderate; 15-21 severe): 3 Source: Developed by Drs. Vitaliy Elder, Preeti Orozco, Obey Pitts and colleagues, with an educational torri from [email or web address]. Physical exam (Primary Care) Vital Signs: Last Vital Signs Pulse 92 02/05/24 10:53 BP 122/76 02/05/24 10:53 Pulse Ox 98 02/05/24 10:53 Oxygen Delivery Method Room Air 02/05/24 10:53 BMI result Body Mass Index 26.1 Tobacco/Smoking Status: Tobacco use Status Tobacco use date assessed 04/15/24 04/15/24 10:58 Patient Tobacco Use Status Current someday Tobacco 02/05/24 10:58 Tobacco use type Cigarette 02/05/24 10:58 e-Cigarette/Vaping Use Never Used 02/05/24 10:58 PHQ-9: PHQ-9 Score PHQ-9: Total score 0 02/05/24 11:15 Depression Screening Interpretation: Negative Thrive Assessment: Date of Thrive Assessment Date Thrive assessed 02/05/24 02/05/24 10:58 Currently or been in a relationship where the following occur: no concerns reported Const General: alert; No acute distress Eyes Conjunctivae: conjunctivae normal Resp Auscultation: clear to auscultation bilaterally Cardio Rate: regular rate Rhythm: regular rhythm GI Inspection: Yes normal to inspection Extrem General: Yes normal to inspection and No edema Assessment and Plan Assessment & Plan (1) GERD (gastroesophageal reflux disease): Comment: September 2023 Code(s): K21.9 - Gastro-esophageal reflux disease without esophagitis Qualifiers: Esophagitis presence: esophagitis presence not specified Qualified Code(s): K21.9 - Gastro-esophageal reflux disease without esophagitis Plan: Avoid the foods that causes that usually spicy foods, tomato products, juices, coffee, soda and foods that your sensitive to. After eating do not lie down, allow 3-4 hours before in lie down. And keep the head of bed above 30 degrees to avoid the acid from going up. On omeprazole (2) Hypercholesterolemia: Code(s): E78.00 - Pure hypercholesterolemia, unspecified Plan: Avoid fried foods, chicken skin, eggs, butter margarine, pastries and meat. Be it pork or beef they have a lot of cholesterol diet controlled. 2021 last cholesterol testing LDL goal of less than 130 and triglyceride of less than 150. (3) Invasive ductal carcinoma of left breast: Comment: August 2017 radiation and tamoxifen Code(s): C50.912 - Malignant neoplasm of unspecified site of left female breast Plan: Continue with mammogram. (4) Generalized anxiety disorder: Comment: counselling [facility] Code(s): F41.1 - Generalized anxiety disorder Plan: Continue with buspirone 5 mg twice a day and fluoxetine 10 mg at bedtime lorazepam as needed as well as counseling (5) Tobacco abuse: Comment: stopped mid April 2022, still smoking 3x a day 06/2023 Code(s): Z72.0 - Tobacco use Plan: Patient is strongly advised to stop smoking! still smoking (6) Impaired glucose tolerance: Code(s): R73.02 - Impaired glucose tolerance (oral) Plan: Decrease the amount of carbohydrate intake, pasta, bread, rice and potatoes are all sugar and that is aside from all the sweet stuff, remember that fruits are good but they are Sweet also. Coding Level of Care Code Est Pt Level 4 (33938) Diagnoses Gastroesophageal reflux disease, unspecified whether esophagitis present K21.9 Esophagitis presence: esophagitis presence not specified Hypercholesterolemia E78.00 Invasive ductal carcinoma of left breast C50.912 Generalized anxiety disorder F41.1 Tobacco abuse Z72.0 Impaired glucose tolerance R73.02
== END 2024-02-05 11:27 | disposition home or self-care (01) ==
PROVIDERS: PCP Internal Medicine; Visit Provider Internal Medicine
DX: K21.9 Gastro-esophageal reflux disease without esophagitis (principal); E78.00 Pure hypercholesterolemia, unspecified; C50.912 Malignant neoplasm of unspecified site of left female breast; F41.1 Generalized anxiety disorder; Z72.0 Tobacco use; R73.02 Impaired glucose tolerance (oral)
CPT/HCPCS: 99214

== ENCOUNTER 2024-02-14 08:46 | Outpatient (REF) | payer OTHER, SELFPAY ==
[2024-02-14 09:03] LABS: MANUAL DIFF FLAG NO
[2024-02-14 09:55] LABS: Basophils Absolute Auto 0.1 X10*3/uL (0.0-0.2); Basophils Percent Auto 0.6 % (0-2); Eosinophils Absolute Auto 0.2 X10*3/uL (0.0-0.4); Eosinophils Percent Auto 2.6 % (0-4); Hematocrit 36.1 % (37.0-47.0); Hemoglobin 12.4 g/dl (12.0-16.0); Imm Gran Abs Auto 0.04 X10*3/uL (0.00-0.03); Imm Gran Pct Auto 0.5 % (0.0-0.4); Lymphocytes Percent Auto 25.6 % (20-40); Mean Corpuscular HGB Conc 34.3 g/dl (31.0-35.0); Mean Corpuscular Hemoglobin 29.3 pg (27.0-33.0); Mean Corpuscular Volume 85.3 fL (80.0-98.0); Mean Platelet Volume 10.1 fL (9.4-12.3); Monocytes Absolute Auto 0.7 X10*3/uL (0.1-1.2); Monocytes Percent Auto 9.1 % (2-11); Neutrophils Absolute Auto 4.8 x10*3/uL (2.0-8.3); Neutrophils Percent Auto 61.6 % (45-73); Platelet Count 288 X10*3/uL (160-400); Red Blood Count 4.23 X10*6/uL (4.20-5.50); Red Cell Distribution Width 12.5 % (11.0-16.0); White Blood Count 7.8 X10*3/uL (4.8-10.8)
[2024-02-14 10:10] LABS: Estimated Average Glucose 114 mg/dL; Hemoglobin A1c % 5.6 % (<6.0)
[2024-02-14 10:29] LABS: Alanine Aminotransferase 18 U/L (0-31); Albumin Level 4.1 g/dL (3.5-5.0); Alkaline Phosphatase 107 U/L (39-117); Anion Gap 11 (12-20); Aspartate Amino Transferase 19 U/L (5-31); Bilirubin Total 0.3 mg/dL (0.0-1.0); Blood Urea Nitrogen 14 mg/dL (9-16); Calcium 9.7 mg/dL (8.4-10.2); Carbon Dioxide 29 mmol/L (22-29); Chloride 106 mmol/L (96-108); Cholesterol 243 mg/dL (<200); Estimated Glomerular Filt Rate > 60; Glucose Random 99 mg/dL (60-115); HDL Cholesterol 50 mg/dL (>40); LDL Cholesterol Calculated 167 mg/dL (<100); Potassium 4.2 mmol/L (3.3-5.1); Sodium 142 mmol/L (135-145); Total Protein 7.1 g/dL (6.5-8.0); Triglycerides 131 mg/dL (<150)
[2024-02-14 10:47] LABS: Thyroid Stimulating Hormone 0.79 uIU/mL (0.32-4.0); Vitamin D 25-OH Total 32.9 ng/mL (>30)
[2024-02-14 11:40] LABS: Vitamin B12 498 pg/mL (200-900)
== END 2024-02-14 08:47 | disposition home or self-care (01) ==
LOC: HO.LAB 08:46
PROVIDERS: PCP Internal Medicine; Visit Provider Internal Medicine
DX: R73.02 Impaired glucose tolerance (oral) (principal); E78.00 Pure hypercholesterolemia, unspecified
CPT/HCPCS: 36415; 80053; 80061; 82306; 82607; 82746; 83036; 84439; 84443; 85025

== ENCOUNTER → 2024-04-09 08:30 | Outpatient (BNV) | payer OTHER, SELFPAY | PROVIDERS: PCP Internal Medicine; Visit Provider Radiology Diagnostic Radiology | DX: Z12.31 Encounter for screening mammogram for malignant neoplasm of breast (principal) | CPT/HCPCS: 77063; 77067 ==

== ENCOUNTER 2024-04-09 08:31 | Outpatient (REF) | payer OTHER, SELFPAY ==
--- NOTE | ~2024-04-09 | MM_ITS ---
EXAMINATION: MM SCREENING DIGITAL BREAST TOMOSYNTHESIS, BILATERAL CLINICAL INFORMATION: Screening. Asymptomatic. Patient is status post treatment for a left breast cancer diagnosis from 2017. COMPARISON: Mammography: This study is compared with prior exams dating back to 2019. TECHNIQUE: Digital breast tomosynthesis is performed in both the craniocaudal and mediolateral oblique views along with computer-aided detection (CAD). Synthesized 2D images are generated from the tomosynthesis. FINDINGS: There are scattered areas of fibroglandular density (ACR BI-RADS breast composition Category b). There are no significant masses, abnormal calcifications, or other abnormalities. There are postsurgical changes in the upper outer quadrant of the left breast and left axilla from prior cancer surgery. MM/MM tomosynthesis screening BI IMPRESSION: No mammographic evidence of malignancy. ASSESSMENT: BI-RADS BI-RADS 2 - Benign Findings RECOMMENDATION: Routine annual mammography screening. 1 year F/U This examination should not preclude the clinical evaluation of a suspicious palpable abnormality. This patient's information was entered into a reminder system with a target due date for their next mammogram.
== END 2024-04-09 08:32 | disposition home or self-care (01) ==
LOC: HO.MAMMO 08:31
PROVIDERS: PCP Internal Medicine; Visit Provider Internal Medicine
DX: Z12.31 Encounter for screening mammogram for malignant neoplasm of breast (principal)
CPT/HCPCS: 77063; 77067

== ENCOUNTER 2024-08-22 14:32 | Outpatient (AMB) | payer OTHER, SELFPAY ==
--- NOTE | 2024-08-22 15:01 | A.OFFVIS_ITS ---
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 She is doing well with no concerns. Attempting to eat a healthy diet with calcium and vitamin D and stays active with exercise. Currently not sexually active. Denies any vaginal dryness or irritation. STI testing offered; she declined. Last pap smear; 2020-neg, 2017-neg, Hx of abnl pap. Last mammogram; 2023. Colonoscopy is UTD. Denies any family history of ovarian or colon cancer. [facility] Medical History Dysphagia Tobacco abuse Tubular adenoma of colon Recurrent major depression Carpal tunnel syndrome of left wrist Neuropathy of left ulnar nerve at wrist Lumbar degenerative disc disease Renal calculus, left Right ovarian cyst Stress incontinence Hypercholesterolemia GERD (gastroesophageal reflux disease) Generalized anxiety disorder Invasive ductal carcinoma of left breast Paroxysmal atrial fibrillation Insomnia Surgical History History of endoscopy Hx of colonoscopy History of esophagogastroduodenoscopy (EGD) Hx of dilation and curettage History of lumpectomy of left breast Family History Father Liver cancer Substance abuse Mother Heart disease Diabetes mellitus HTN (hypertension) CVD (cardiovascular disease) Brother HTN (hypertension) CVD (cardiovascular disease) Substance abuse Sister Breast cancer CVD (cardiovascular disease) Social History Housing: Apartment Alcohol intake: never Comment: medicated in pacu Patient Tobacco Use Status: Current someday Tobacco user Tobacco use type: Cigarette Cigarettes Per Day: 3 Years Smoked: quit 05/2022 e-Cigarette/Vaping Use: Never Used Second Hand Smoke Exposure: Yes service: No Current occupational status: employed Gender identity: Female Cognitive needs: No Hearing needs: No Vision needs: Yes Female Reproductive History Menstrual Age of Menarche: 13 Total pregnancies: 4 Full term: 4 Number of Living Children: 4 Date of last pap smear: 03/02/21 (neg pap and hpv) History of abnormal pap smear: Yes (2016 +hpv 2018 ascus 09/10 neg pap and hpv) Date of Mammogram: 04/09/24 (Birad 2) History of abnormal mammogram: Yes Review of Systems Const All systems reviewed & are unremarkable except as noted in HPI and below Reports as per HPI Eyes Reports no additional complaints ENT Reports no additional complaints Card Reports no additional complaints Resp Reports no additional complaints GI Reports as per HPI and Reports no additional complaints Reports as per HPI Musc Reports no additional complaints Skin/Breast Reports as per HPI Neuro Reports no additional complaints Psych Reports no additional complaints Endo Reports no additional complaints Mathew/Lymph Reports no additional complaints Aller/Immun Reports no additional complaints Physical Exam Vital Signs: Last Vital Signs BP 122/80 08/22/24 15:02 BMI result Body Mass Index 27.5 Const General: cooperative, healthy appearing, no acute distress, well developed and alert Orientation/consciousness: patient oriented x3 HEENT Head: Yes normal to inspection Eyes General: appearance normal, both eyes and all related structures Neck Neck: Yes normal visual inspection Thyroid: Thyroid normal Chest Other: Post surgical scarring left breast Chest palpation & inspection: normal inspection of the chest and other (no puckering, dimpling, peau de orange, retraction, discharge, masses) Breast/axilla inspection: normal inspection of the breasts Breast/axilla palpation: normal palpation of the breasts Resp Effort & Inspection: normal respiratory effort GI Inspection: Yes normal to inspection Palpation (GI): Soft to palpation Rectal Exam - Female: deferred General: Yes bladder normal to palpation External Female Exam: normal external appearance and normal appearance of the urethra Speculum Exam - Vagina: normal appearance of the vagina, normal palpation, normal vaginal discharge and vagina atrophic Speculum Exam - Cervix: normal appearance of the cervix and normal palpation Bimanual exam- vagina & uterus: normal bimanual exam, normal palpation, uterine size normal, bladder normal to palpation, normal palpation and non-tender Bimanual Exam- Adnexa, other: no masses Skin General skin exam: no rashes or lesions noted Rashes: no rashes Neuro General: patient oriented x3 Cognition (Neuro): normal cognition Extrem General: Yes normal to inspection Psych Attitude: cooperative Thought process: Normal thought process present Assessment & Plan Assessment & Plan (1) Well woman exam with routine gynecological exam: Code(s): Z01.419 - Encounter for gynecological examination (general) (routine) without abnormal findings Category: Medical Plan Discussed: Current recommendations for pap smears per ASCCP guidelines. Breast awareness, periodic self breast exams and yearly mammogram. Maintain a healthy lifestyle, well balanced diet including Calcium 1,200 mg and Vitamin D 600 IU daily, and routine exercise. Contact the office with any postmenopausal bleeding. Patient verbalizes understanding and agrees to the plan of care. She was given opportunity to ask questions and all questions were answered to the best of my ability. RTO in 1 year for annual quality assistant exam. This note is constructed using voice recognition software. While every effort has been made to ensure accuracy, injection molding machine operator errors may have been included. Coding Level of Care Code Est Pt Prev Care 40-64y(39254) Diagnoses Well woman exam with routine gynecological exam Z01.419
[2024-08-22 15:02] VITALS: BP 122/80; BMI 27.5
== END 2024-08-22 15:46 | disposition home or self-care (01) ==
LOC: HO.HWS 14:32
PROVIDERS: PCP Internal Medicine; Visit Provider Advanced Practice Midwife
DX: Z01.419 Encounter for gynecological examination (general) (routine) without abnormal findings (principal)
CPT/HCPCS: 99396

== ENCOUNTER → 2024-08-22 14:32 | Outpatient (BNVA) | payer OTHER, SELFPAY | PROVIDERS: PCP Internal Medicine; Visit Provider Advanced Practice Midwife | DX: Z01.419 Encounter for gynecological examination (general) (routine) without abnormal findings (principal) | CPT/HCPCS: 99396 ==

== ENCOUNTER 2024-10-08 08:45 | Outpatient (REF) | payer OTHER, SELFPAY ==
[2024-10-08 09:05] LABS: MANUAL DIFF FLAG NO
[2024-10-08 10:11] LABS: Basophils Absolute Auto 0.1 X10*3/uL (0.0-0.2); Basophils Percent Auto 0.8 % (0-2); Eosinophils Absolute Auto 0.2 X10*3/uL (0.0-0.4); Eosinophils Percent Auto 2.7 % (0-4); Hematocrit 34.6 % (37.0-47.0); Hemoglobin 11.6 g/dl (12.0-16.0); Imm Gran Abs Auto 0.06 X10*3/uL (0.00-0.03); Imm Gran Pct Auto 0.8 % (0.0-0.4); Lymphocytes Absolute Auto 1.9 X10*3/uL (1.2-4.9); Lymphocytes Percent Auto 25.7 % (20-40); Mean Corpuscular HGB Conc 33.5 g/dl (31.0-35.0); Mean Corpuscular Hemoglobin 28.9 pg (27.0-33.0); Mean Corpuscular Volume 86.3 fL (80.0-98.0); Mean Platelet Volume 10.1 fL (9.4-12.3); Monocytes Absolute Auto 0.6 X10*3/uL (0.1-1.2); Monocytes Percent Auto 8.6 % (2-11); Neutrophils Absolute Auto 4.5 x10*3/uL (2.0-8.3); Neutrophils Percent Auto 61.4 % (45-73); Platelet Count 267 X10*3/uL (160-400); Red Blood Count 4.01 X10*6/uL (4.20-5.50); Red Cell Distribution Width 11.9 % (11.0-16.0); White Blood Count 7.3 X10*3/uL (4.8-10.8)
[2024-10-08 10:23] LABS: Estimated Average Glucose 114 mg/dL; Hemoglobin A1c % 5.6 % (<6.0); Total Hemoglobin (HGBA1C) 3022.0281 umol/L
[2024-10-08 10:49] LABS: Alanine Aminotransferase 21 U/L (0-31); Albumin Level 3.8 g/dL (3.5-5.0); Alkaline Phosphatase 96 U/L (39-117); Anion Gap 9 (12-20); Aspartate Amino Transferase 23 U/L (5-31); Bilirubin Total 0.3 mg/dL (0.0-1.0); Blood Urea Nitrogen 16 mg/dL (9-16); Carbon Dioxide 26 mmol/L (22-29); Chloride 110 mmol/L (96-108); Cholesterol 222 mg/dL (<200); Estimated Glomerular Filt Rate > 60; Glucose Random 100 mg/dL (60-115); HDL Cholesterol 42 mg/dL (>40); LDL Cholesterol Calculated 133 mg/dL (<100); Potassium 3.8 mmol/L (3.3-5.1); Sodium 141 mmol/L (135-145); Total Protein 6.6 g/dL (6.5-8.0); Triglycerides 238 mg/dL (<150)
[2024-10-08 10:54] LABS: Thyroid Stimulating Hormone 0.78 uIU/mL (0.32-4.0)
== END 2024-10-08 08:46 | disposition home or self-care (01) ==
LOC: HO.LAB 08:45
PROVIDERS: PCP Internal Medicine; Visit Provider Internal Medicine
DX: D64.9 Anemia, unspecified (principal); R73.02 Impaired glucose tolerance (oral); C50.912 Malignant neoplasm of unspecified site of left female breast; K21.9 Gastro-esophageal reflux disease without esophagitis; F33.9 Major depressive disorder, recurrent, unspecified; K59.00 Constipation, unspecified; K64.9 Unspecified hemorrhoids; M54.9 Dorsalgia, unspecified; E78.00 Pure hypercholesterolemia, unspecified; Z79.899 Other long term (current) drug therapy; Z72.0 Tobacco use
CPT/HCPCS: 36415; 80053; 80061; 83036; 84443; 85025; 96127; 99212

== ENCOUNTER 2024-10-08 15:33 | Outpatient (AMB) | payer OTHER, SELFPAY ==
[2024-10-08 15:42] VITALS: BP 122/76; PULSE 101; O2SAT 98; BMI 27.5
--- NOTE | 2024-10-08 15:42 | MHC.PC.OV ---
Vital Signs 10/08/24 15:42 Height 4 ft 11 in Weight 136 lb BMI 27.5 BP 122/76 Blood Pressure Location Lt brachial Position Sitting Pulse 101 H Pulse Source Pulse Oximeter Pulse Oximetry (%) 98 Oxygen Delivery Method Room Air Intake Visit Reasons: Cholesterol, SHAYY Allergies No Known Allergies [No Known Allergies*] Allergy (Verified 10/08/24 15:42) Medication List - Last Reconciled 10/08/24 by Marlyn Krause MD buspirone 5 mg PO BID cyclobenzaprine 5 mg PO TID PRN fluoxetine 10 mg PO BEDTIME ibuprofen 600 mg PO Q8H PRN lidocaine 5% (Lidoderm) 1 patch topical DAILY lorazepam 0.5 mg PO DAILY PRN miscellaneous medical supply 1 ea miscellaneous ONCE omeprazole 20 mg PO DAILY sennosides-docusate sodium 8.6-50 mg (Senna-S) 3 tab-caps (3 x 8.6-50 mg) PO BEDTIME 90 days zolpidem 5 mg PO BEDTIME PRN Tobacco use date assessed: 02/05/24 Dental Screening Dental Screen Date: 02/05/24 HPI Cholesterol, SHAYY HPI Details The patient is a 59-year-old female presenting with a follow-up visit for blood test results and management of ongoing conditions including anemia, high cholesterol, hemorrhoids, constipation, and gastroesophageal reflux disease (GERD). Recently, blood work indicated mild anemia with a hemoglobin count of 11.6 g/dL, slightly below the normal range of 12 g/dL. The cause of anemia is currently unknown; the patient reports no active bleeding, including no gastrointestinal or gynecological bleeding. The patient?s fasting blood glucose level is slightly elevated at 100 mg/dL, just above the normal range of 70 to 99 mg/dL. The lipid profile shows an improved but still elevated LDL cholesterol level at 133 mg/dL, with a normal value being less than 130 mg/dL. Despite some improvements, the patient has been advised to reduce the intake of high-cholesterol foods like ice cream, currently consumed nightly, and other sources such as pizza and bread. The patient is experiencing issues with hemorrhoids attributed to constipation, exacerbated by infrequent bowel movements. The patient reports the use of omeprazole for GERD, indicating its necessity, and a history of mild musculoskeletal shoulder pain has been observed for approximately two to three years. A chest X-ray is planned to evaluate any lingering musculoskeletal concerns. Finally, the patient acknowledges the need for calcium and vitamin D supplementation, with current vitamin D3 intake at 2000 IU, especially during the winter months. [facility] Medical History Dysphagia Tobacco abuse Tubular adenoma of colon Recurrent major depression Carpal tunnel syndrome of left wrist Neuropathy of left ulnar nerve at wrist Lumbar degenerative disc disease Renal calculus, left Right ovarian cyst Stress incontinence Hypercholesterolemia GERD (gastroesophageal reflux disease) Generalized anxiety disorder Invasive ductal carcinoma of left breast Paroxysmal atrial fibrillation Insomnia Surgical History History of endoscopy Hx of colonoscopy History of esophagogastroduodenoscopy (EGD) Hx of dilation and curettage History of lumpectomy of left breast Family History Father Liver cancer Substance abuse Mother Heart disease Diabetes mellitus HTN (hypertension) CVD (cardiovascular disease) Brother HTN (hypertension) CVD (cardiovascular disease) Substance abuse Sister Breast cancer CVD (cardiovascular disease) Social History Housing: Apartment Alcohol intake: never Comment: medicated in pacu Patient Tobacco Use Status: Current someday Tobacco user Tobacco use type: Cigarette Cigarettes Per Day: 3 Years Smoked: quit 05/2022 e-Cigarette/Vaping Use: Never Used Second Hand Smoke Exposure: Yes service: No Current occupational status: employed Gender identity: Female Cognitive needs: No Hearing needs: No Vision needs: Yes Female Reproductive History Menstrual Age of Menarche: 13 Questionnaire PHQ-9 Over the last 2 weeks, how often have you been bothered by any of the following problems? 1. Little interest or pleasure in doing things: not at all 2. Feeling down, depressed, or hopeless: not at all 3. Trouble falling or staying asleep, or sleeping too much: not at all 4. Feeling tired or having little energy: not at all 5. Poor appetite or overeating: not at all 6. Feeling bad about yourself - or that you are a failure or have let yourself or your family down: not at all 7. Trouble concentrating on things, such as reading the newspaper or watching television: not at all 8. Moving or speaking so slowly that other people could have noticed. Or the opposite - being so fidgety or restless that you have been moving around a lot more than usual: not at all 9. Thoughts that you would be better off or of hurting yourself in some way: not at all Total score: 0 Depression Screening Interpretation: Negative Depression Screening Done: Yes Source: Developed by Drs. Vitaliy Elder, Obey Harry and colleagues, with an educational torri from [employer]. Thrive Questionnaire Date Thrive assessed: 02/05/24 AUDIT C Alcohol Use Questionnaire (AUDIT-C) 1. How often do you have a drink containing alcohol?: Monthly or less 2. How many drinks containing alcohol do you have on a typical day when you are drinking?: 1 or 2 3. How often do you have six or more drinks on one occasion?: Never Total Score: 1 SHAYY-7 AMB Questionnaire SHAYY-7 Date SHAYY - 7 assessed: 02/05/24 Source: Developed by Drs. Vitaliy Elder, Obey Harry and colleagues, with an educational torri from [employer]. Physical exam (Primary Care) Vital Signs: Last Vital Signs Pulse 101 H 10/08/24 15:42 BP 122/76 10/08/24 15:42 Pulse Ox 98 10/08/24 15:42 Oxygen Delivery Method Room Air 10/08/24 15:42 BMI result Body Mass Index 27.5 Tobacco/Smoking Status: Tobacco use Status Tobacco use date assessed 02/05/24 10/08/24 15:43 Patient Tobacco Use Status Current someday Tobacco 10/08/24 15:43 Tobacco use type Cigarette 10/08/24 15:43 e-Cigarette/Vaping Use Never Used 10/08/24 15:43 PHQ-9: PHQ-9 Score PHQ-9: Total score 0 10/08/24 15:56 Depression Screening Interpretation: Negative Thrive Assessment: Date of Thrive Assessment Date Thrive assessed 02/05/24 10/08/24 15:43 Const General: alert; No acute distress Eyes Conjunctivae: conjunctivae normal Resp Auscultation: clear to auscultation bilaterally Cardio Rate: regular rate Rhythm: regular rhythm GI Inspection: Yes normal to inspection Extrem General: Yes normal to inspection and No edema Coding Level of Care Code Est Pt Level 4 (30248) Diagnoses Anemia D64.9 Impaired glucose tolerance R73.02 Tobacco abuse Z72.0 Invasive ductal carcinoma of left breast C50.912 Gastroesophageal reflux disease, unspecified whether esophagitis present K21.9 Esophagitis presence: esophagitis presence not specified Hypercholesterolemia E78.00 Recurrent major depression F33.9 Constipation K59.00 Hemorrhoid K64.9 Upper back pain on left side M54.9 Assessment & Plan Assessment & Plan (1) Anemia: Code(s): D64.9 - Anemia, unspecified Category: Medical (2) Impaired glucose tolerance: Code(s): R73.02 - Impaired glucose tolerance (oral) Category: Medical (3) Tobacco abuse: Comment: stopped mid April 2022, still smoking 3x a day 06/2023 Code(s): Z72.0 - Tobacco use Category: Medical Plan: Strongly advised to stop smoking! (4) Invasive ductal carcinoma of left breast: Comment: August 2017 radiation and tamoxifen Code(s): C50.912 - Malignant neoplasm of unspecified site of left female breast Category: Medical Plan: Mammograms up-to-date and continue to follow-up with Hematology-Oncology (5) GERD (gastroesophageal reflux disease): Comment: September 2023 Code(s): K21.9 - Gastro-esophageal reflux disease without esophagitis Category: Medical Qualifiers: Esophagitis presence: esophagitis presence not specified Qualified Code(s): K21.9 - Gastro-esophageal reflux disease without esophagitis Plan: Avoid the foods that causes that usually spicy foods, tomato products, juices, coffee, soda and foods that your sensitive to. After eating do not lie down, allow 3-4 hours before in lie down. And keep the head of bed above 30 degrees to avoid the acid from going up. (6) Hypercholesterolemia: Code(s): E78.00 - Pure hypercholesterolemia, unspecified Category: Medical Plan: Avoid fried foods, chicken skin, eggs, butter margarine, pastries and meat. Be it pork or beef they have a lot of cholesterol (7) Recurrent major depression: Comment: [facility] 06/2021 Code(s): F33.9 - Major depressive disorder, recurrent, unspecified Category: Medical Plan: Continue with counseling and therapy (8) Constipation: Code(s): K59.00 - Constipation, unspecified Category: Medical Plan: Three rules for constipation 1. Diet need to have a high fiber diet less of meat 2. Increase oral fluids 3. Exercise (9) Hemorrhoid: Code(s): K64.9 - Unspecified hemorrhoids Category: Medical Plan: Advised to avoid getting constipated. Proctosol sent in (10) Upper back pain on left side: Code(s): M54.9 - Dorsalgia, unspecified Category: Medical Plan: Patient is advised to get a chest x-ray and left shoulder x-ray. Plan - Prescribe a cream for the management of hemorrhoids and suggest use of a laxative, specifically [place], to assist with constipation. - Continue omeprazole for gastroesophageal reflux disease as needed. - Advise on diet modification to reduce LDL cholesterol, including reduced intake of ice cream and high-cholesterol foods, focusing on increased vegetables and plant-based foods. - A request for further iron studies to investigate the cause of anemia, to be done within the next few months. - Plan follow-up fasting blood glucose tests to monitor levels. - Conduct a chest X-ray to investigate persistent musculoskeletal pain and ensure no underlying conditions in the chest; consider shoulder X-ray if warranted. - Emphasize the importance of osteoporosis prevention with adequate calcium and vitamin D intake. - Reinforce smoking cessation efforts and the adverse impact on overall health. - Continue discussion about regular monitoring of cancer status and update mammogram schedule as appropriate. - Encourage routine preventive care measures, such as obtaining a flu vaccination. Orders: Orders IRON PROFILE 3 Months D64.9 - Anemia, unspecified Reticulocyte Count 3 Months D64.9 - Anemia, unspecified Vitamin B12 and Folate 3 Months D64.9 - Anemia, unspecified XR shoulder LT min 2V Today M54.9 - Dorsalgia, unspecified Comprehensive Met. Panel 3 Months E78.00 - Pure hypercholesterolemia, unspecified Complete Blood Count Auto Diff 3 Months D64.9 - Anemia, unspecified Ferritin 3 Months D64.9 - Anemia, unspecified XR chest 2V Today M54.9 - Dorsalgia, unspecified Lipid Panel 3 Months E78.00 - Pure hypercholesterolemia, unspecified Medications: New hydrocortisone 2.5% (Proctosol HC) 1 appl GA BID-QID PRN 30 grams 0RF hemorrhoids K64.9 - Unspecified hemorrhoids Refilled sennosides-docusate sodium 8.6-50 mg (Senna-S) 3 tab-caps (3 x 8.6-50 mg) PO BEDTIME 90 days 270 tabs 3RF K59.00 - Constipation, unspecified omeprazole 20 mg PO DAILY 90 caps 2RF K21.9 - Gastro-esophageal reflux disease without esophagitis
== END 2024-10-08 16:53 | disposition home or self-care (01) ==
PROVIDERS: PCP Internal Medicine; Visit Provider Internal Medicine
DX: D64.9 Anemia, unspecified (principal); C50.912 Malignant neoplasm of unspecified site of left female breast; F33.9 Major depressive disorder, recurrent, unspecified; R73.02 Impaired glucose tolerance (oral); Z72.0 Tobacco use; K21.9 Gastro-esophageal reflux disease without esophagitis; E78.00 Pure hypercholesterolemia, unspecified; K59.00 Constipation, unspecified; K64.9 Unspecified hemorrhoids; M54.9 Dorsalgia, unspecified

== ENCOUNTER 2024-11-05 12:52 | Outpatient (REF) | payer OTHER, SELFPAY ==
--- NOTE | ~2024-11-05 | XR_ITS ---
CLINICAL HISTORY: M54.9 - Dorsalgia, unspecified 2 view chest x-ray Comparison: None Findings: The lungs are clear. Heart size is normal. No acute fracture. IMPRESSION: 1. No acute findings. This document has been electronically signed by: Zuri Morocho MD on 11/07/2024 06:12:54
--- NOTE | ~2024-11-05 | XR_ITS ---
CLINICAL HISTORY: M54.9 - Dorsalgia, unspecified 4 view left shoulder Comparison: None Findings: No fractures or dislocations. No significant loss of joint space or osteophytes. No erosions. No radiopaque foreign body. IMPRESSION: 1. No acute findings This document has been electronically signed by: Zuri Morocho MD on 11/07/2024 06:13:03
== END 2024-11-05 12:53 | disposition home or self-care (01) ==
LOC: HO.XRAY 12:52
PROVIDERS: PCP Internal Medicine; Visit Provider Internal Medicine
DX: M54.9 Dorsalgia, unspecified (principal)
CPT/HCPCS: 71046; 73030

== ENCOUNTER → 2024-11-05 13:04 | Outpatient (BNV) | payer OTHER, SELFPAY | PROVIDERS: PCP Internal Medicine; Visit Provider Radiology Diagnostic Radiology | DX: M25.512 Pain in left shoulder (principal) | CPT/HCPCS: 71046; 73030 ==

== ENCOUNTER 2025-01-06 10:22 | Outpatient (REF) | payer OTHER, SELFPAY ==
[2025-01-06 10:31] LABS: MANUAL DIFF FLAG NO
[2025-01-06 11:03] LABS: Basophils Percent Auto 0.4 % (0-2); Eosinophils Absolute Auto 0.2 X10*3/uL (0.0-0.4); Eosinophils Percent Auto 1.8 % (0-4); Hematocrit 36.9 % (37.0-47.0); Hemoglobin 12.5 g/dl (12.0-16.0); Imm Gran Abs Auto 0.04 X10*3/uL (0.00-0.03); Imm Gran Pct Auto 0.4 % (0.0-0.4); Immature Retic Fraction 13.5 % (3.0-15.9); Lymphocytes Absolute Auto 1.9 X10*3/uL (1.2-4.9); Lymphocytes Percent Auto 20.9 % (20-40); Mean Corpuscular HGB Conc 33.9 g/dl (31.0-35.0); Mean Corpuscular Hemoglobin 28.6 pg (27.0-33.0); Mean Corpuscular Volume 84.4 fL (80.0-98.0); Mean Platelet Volume 10.1 fL (9.4-12.3); Monocytes Absolute Auto 0.8 X10*3/uL (0.1-1.2); Monocytes Percent Auto 8.9 % (2-11); Neutrophils Absolute Auto 6.1 x10*3/uL (2.0-8.3); Neutrophils Percent Auto 67.6 % (45-73); Platelet Count 298 X10*3/uL (160-400); Red Blood Count 4.37 X10*6/uL (4.20-5.50); Red Cell Distribution Width 12.6 % (11.0-16.0); Retic HGB Equivalent 33.3 pg (30.0-35.0); Reticulocyte Percent 1.9 % (0.5-1.8); Reticulocytes Absolute 0.083 X10*6/uL (0.026-0.095)
[2025-01-06 12:08] LABS: Folate 14.5 ng/mL (> or = 4.0); Vitamin B12 524 pg/mL (200-900)
[2025-01-06 12:34] LABS: Ferritin 24 ng/mL (10-250)
[2025-01-06 12:46] LABS: Anion Gap 12 (12-20)
[2025-01-06 12:51] LABS: Alanine Aminotransferase 19 U/L (0-31); Albumin Level 4.1 g/dL (3.5-5.0); Alkaline Phosphatase 103 U/L (39-117); Aspartate Amino Transferase 25 U/L (5-31); Bilirubin Total 0.5 mg/dL (0.0-1.0); Blood Urea Nitrogen 17 mg/dL (9-16); Calcium 9.5 mg/dL (8.4-10.2); Carbon Dioxide 24 mmol/L (22-29); Chloride 111 mmol/L (96-108); Cholesterol 237 mg/dL (<200); Estimated Glomerular Filt Rate > 60; Glucose Random 93 mg/dL (60-115); HDL Cholesterol 49 mg/dL (>40); Iron 132 mcg/dL (30-160); LDL Cholesterol Calculated 152 mg/dL (<100); Percent Iron Saturation 36 % (15-50); Potassium 4.2 mmol/L (3.3-5.1); Sodium 143 mmol/L (135-145); Total Iron Binding Capacity 371 mcg/dL (228-428); Total Protein 7.3 g/dL (6.5-8.0); Triglycerides 180 mg/dL (<150); Unsaturated Iron Binding 239 ug/dL
== END 2025-01-06 10:23 | disposition home or self-care (01) ==
LOC: HO.LAB 10:22
PROVIDERS: PCP Internal Medicine; Visit Provider Internal Medicine
DX: D64.9 Anemia, unspecified (principal); E78.00 Pure hypercholesterolemia, unspecified
CPT/HCPCS: 36415; 80053; 80061; 82607; 82728; 82746; 83540; 85025; 85045

== ENCOUNTER 2025-01-07 15:51 | Outpatient (AMB) | payer OTHER, SELFPAY ==
--- NOTE | 2025-01-07 15:57 | A.OFFPC_ITS ---
Vital Signs 01/07/25 16:00 Height 4 ft 11 in Weight 136 lb 4 oz BMI 27.5 BP 122/80 Blood Pressure Location Lt brachial Position Sitting Pulse 104 H Pulse Source Pulse Oximeter Temp 96.9 F Temp Source Temporal Artery Scan Pulse Oximetry (%) 95 Oxygen Delivery Method Room Air Intake Visit Reasons: 3 month Intake Note: Patient is here to follow up on LDDD, PAfib, GERD. Agency Sales Management Assistant Required: No Netezza Developer: Not Required per policy Accompanied by: Self / Same As Patient Allergies No Known Allergies [No Known Allergies*] Allergy (Verified 01/07/25 16:00) Medication List - Last Reconciled 01/07/25 by Marlyn Krause MD buspirone 5 mg PO BID fluoxetine 10 mg PO BEDTIME hydrocortisone 2.5% (Proctosol HC) 1 appl SC BID-QID PRN lidocaine 5% (Lidoderm) 1 patch topical DAILY lorazepam 0.5 mg PO DAILY PRN miscellaneous medical supply 1 ea miscellaneous ONCE omeprazole 20 mg PO DAILY sennosides-docusate sodium 8.6-50 mg (Senna-S) 3 tab-caps (3 x 8.6-50 mg) PO BEDTIME 90 days trazodone 50 mg PO BEDTIME zolpidem 5 mg PO BEDTIME PRN Tobacco use date assessed: 01/07/25 Dental Screening Dental Screen Date: 01/07/25 Did you have a dental visit in the last 12 months?: No Did you have a dental problem in the last 6 months where you did not have access to dental care?: No Was dental information given to patient?: No [facility] Medical History Dysphagia Tobacco abuse Tubular adenoma of colon Recurrent major depression Carpal tunnel syndrome of left wrist Neuropathy of left ulnar nerve at wrist Lumbar degenerative disc disease Renal calculus, left Right ovarian cyst Stress incontinence Hypercholesterolemia GERD (gastroesophageal reflux disease) Generalized anxiety disorder Invasive ductal carcinoma of left breast Paroxysmal atrial fibrillation Insomnia Surgical History History of endoscopy Hx of colonoscopy History of esophagogastroduodenoscopy (EGD) Hx of dilation and curettage History of lumpectomy of left breast Family History Father Liver cancer Substance abuse Mother Heart disease Diabetes mellitus HTN (hypertension) CVD (cardiovascular disease) Brother HTN (hypertension) CVD (cardiovascular disease) Substance abuse Sister Breast cancer CVD (cardiovascular disease) Social History Housing: Apartment Alcohol intake: never Comment: medicated in pacu Patient Tobacco Use Status: Former Tobacco user Tobacco use type: Cigarette Cigarettes Per Day: 3 Years Smoked: quit 05/2022 e-Cigarette/Vaping Use: Never Used Second Hand Smoke Exposure: Yes service: No Current occupational status: employed Gender identity: Female Cognitive needs: No Hearing needs: No Vision needs: Yes Female Reproductive History Menstrual Age of Menarche: 13 Questionnaire PHQ-9 Over the last 2 weeks, how often have you been bothered by any of the following problems? 1. Little interest or pleasure in doing things: not at all 2. Feeling down, depressed, or hopeless: not at all 3. Trouble falling or staying asleep, or sleeping too much: not at all 4. Feeling tired or having little energy: not at all 5. Poor appetite or overeating: not at all 6. Feeling bad about yourself - or that you are a failure or have let yourself or your family down: not at all 7. Trouble concentrating on things, such as reading the newspaper or watching television: not at all 8. Moving or speaking so slowly that other people could have noticed. Or the opposite - being so fidgety or restless that you have been moving around a lot more than usual: not at all 9. Thoughts that you would be better off or of hurting yourself in some way: not at all Total score: 0 Depression Screening Interpretation: Negative Depression Screening Done: Yes Source: Developed by Drs. Vitaliy Elder, Preeti Orozco, Obey Pitts and colleagues, with an educational torri from [employer] Thrive Questionnaire Date Thrive assessed: 01/07/25 I am a: Patient What is your living situation today?: I have a steady place to live Within the past 12 months, did the food you bought not last and you didn't have the money to get more?: Never true Within the past 12 months, did you worry whether your food would run out before you got money to buy more?: Never true Do you have trouble paying for medicines?: No Do you have trouble getting transportation to medical appointments?: No Do you have trouble paying your heating and electricity bill?: No Do you have trouble taking care of your child, family member or friend?: No Do you have trouble with day-to-day activities such as bathing, preparing meals, shopping, managing finances, etc.?: No Are you currently unemployed and looking for a job?: No Are you interested in more education?: No Please select the resources that you would like help with: None Currently or been in a relationship where the following occur: No concerns reported THRIVE Score: 0 AUDIT C Alcohol Use Questionnaire (AUDIT-C) 1. How often do you have a drink containing alcohol?: Monthly or less 2. How many drinks containing alcohol do you have on a typical day when you are drinking?: 1 or 2 Total Score: 1 SHAYY-7 AMB Questionnaire SHAYY-7 Date SHAYY - 7 assessed: 01/07/25 Feeling nervous, anxious, or on edge: 0 = Not at all Not being able to stop or control worryin = Not at all Worrying too much about different things: 0 = Not at all Trouble relaxin = Not at all Being so restless that it is hard to sit still: 0 = Not at all Becoming easily annoyed or irritable: 0 = Not at all Feeling afraid as if something awful might happen: 0 = Not at all Total SHAYY-7 score (0-4 normal; 5-9 mild; 10-14 moderate; 15-21 severe): 0 Source: Developed by Drs. Vitaliy Elder, Preeti Orozco, Obey Pitts and colleagues, with an educational torri from [employer] Physical exam (Primary Care) Vital Signs: Last Vital Signs Temp 96.9 F 01/07/25 16:00 Pulse 104 H 01/07/25 16:00 BP 122/80 01/07/25 16:00 Pulse Ox 95 01/07/25 16:00 Oxygen Delivery Method Room Air 01/07/25 16:00 BMI result Body Mass Index 27.5 Tobacco/Smoking Status: Tobacco use Status Tobacco use date assessed 01/07/25 01/07/25 16:04 Patient Tobacco Use Status Former Tobacco user (01/05/25 01/07/25 16:04 ) Tobacco use type Cigarette 01/07/25 16:04 e-Cigarette/Vaping Use Never Used 01/07/25 16:04 PHQ-9: PHQ-9 Score PHQ-9: Total score 0 01/07/25 16:04 Depression Screening Interpretation: Negative Thrive Assessment: Date of Thrive Assessment Date Thrive assessed 01/07/25 01/07/25 16:04 Currently or been in a relationship where the following occur: No concerns reported Const General: alert; No acute distress Eyes Conjunctivae: conjunctivae normal Resp Auscultation: clear to auscultation bilaterally Cardio Rate: regular rate Rhythm: regular rhythm GI Inspection: Yes normal to inspection Extrem General: Yes normal to inspection and No edema Coding Level of Care Code Est Pt Level 4 (24585) Complex EM visit Add On G2211 Diagnoses Tobacco abuse Z72.0 Invasive ductal carcinoma of left breast C50.912 Gastroesophageal reflux disease, unspecified whether esophagitis present K21.9 Esophagitis presence: esophagitis presence not specified Hypercholesterolemia E78.00 Recurrent major depression F33.9 Assessment & Plan Assessment & Plan (1) Tobacco abuse: Comment: stopped mid April 2022, still smoking 3x a day 06/2023 Code(s): Z72.0 - Tobacco use Category: Medical Plan: Patient is strongly advised to stop smoking (2) Invasive ductal carcinoma of left breast: Comment: August 2017 radiation and tamoxifen Code(s): C50.912 - Malignant neoplasm of unspecified site of left female breast Category: Medical Plan: Continue to follow-up with Hematology-Oncology and up-to-date with mammogram (3) GERD (gastroesophageal reflux disease): Comment: September 2023 Code(s): K21.9 - Gastro-esophageal reflux disease without esophagitis Category: Medical Qualifiers: Esophagitis presence: esophagitis presence not specified Qualified Code(s): K21.9 - Gastro-esophageal reflux disease without esophagitis Plan: Avoid the foods that causes that usually spicy foods, tomato products, juices, coffee, soda and foods that your sensitive to. After eating do not lie down, allow 3-4 hours before in lie down. And keep the head of bed above 30 degrees to avoid the acid from going up. (4) Hypercholesterolemia: Code(s): E78.00 - Pure hypercholesterolemia, unspecified Category: Medical Plan: Avoid fried foods, chicken skin, eggs, butter margarine, pastries and meat. Be it pork or beef they have a lot of cholesterol LDL goal of less than 130 and triglyceride of less than 150 (5) Recurrent major depression: Comment: [facility] counselling 06/2021 Code(s): F33.9 - Major depressive disorder, recurrent, unspecified Category: Medical Plan: Continue with counseling and therapy Plan History of Present Illness The patient is a 60-year-old female presenting for a follow-up visit and has a multi-faceted medical history involving chronic and past medical conditions. She suffers from atrial fibrillation with no recent recurrence, maintains ongoing monitoring for left breast cancer diagnosed in 2016, and actively manages hypercholesterolemia with recent LDL levels above recommended targets. The patient has a consistent history of major depressive disorder and generalized anxiety disorder which correlates with her current psychosocial stressors. The gastroesophageal reflux disease is managed with omeprazole. She is tasked with dietary adjustments to address high cholesterol, noting limited success and acknowledgment of a continued high-fat diet primarily on weekends. Additionally, she discusses adjustments to her lifestyle to support her general well-being and manage her chronic health issues. Her care involves close monitoring with regular evaluations, blood work assessments, and [facility] screen[facility], reflecting attentive health maintenance alongside her chronic issues. Health Maintenance - Mammogram performed in March 2024, up to date. - Colonoscopy performed in August 2023. - Review and management of high cholesterol with dietary counseling; LDL goal <130, triglycerides <150. - Smoking cessation strongly encouraged. - Advised to continue regular follow-up with hematology/oncology. - Updated medication regimen with the initiation of simvastatin for cholesterol management. - Regular psychological counseling for depression and anxiety management emphasized. Social History - Resides with family, responsible for caregiving duties for her mother. - Reports feelings of being overwhelmed due to caregiving responsibilities. - Former smoker, strongly encouraged to continue cessation. - Dietary intake includes fast foods, eggs frequently, and desserts; adjustments counselled. - Reports feelings of isolation and stress impacting mental health. Review of Systems - Psychiatric: Reports crying every day, feeling of being overwhelmed, discontinuation of counseling. Physical Exam Results - Labs: Normal blood count, electrolytes, renal and liver functions; High cholesterol with LDL of 152 and triglycerides of 180. - Imaging: Recent shoulder and chest X-rays, showing no acute findings. Plan Management involves hypercholesterolemia control through the introduction of simvastatin and reinforced dietary modifications, reassessed in a three-month timeline. Detailed interaction with psychological counselors for mental health to be established. Comprehensive health maintenance for the patient includes keeping apace with regular screenings, cardiac monitoring, and lifestyle changes such as smoking cessation. Patient autonomy over dietary controls was empowered through specific dietary guidance and educative collaboration to reduce LDL and triglyceride levels. Prompt follow-up for necessary blood work is expected to evaluate cholesterol management progress. Patient was informed and verbally consented to the use of an ambient scribe for clinic note documentation during this visit. Discussion Notes During our discussion, I outlined the necessity for improving cholesterol control in light of elevated LDL levels, highlighting potential cardiovascular complications and benefits of simvastatin versus lifestyle interventions alone. Advised the patient about the benefits versus side effects of simvastatin, making sure to address her concerns and obtaining her consent. Discussions emphasized the importance of dietary adjustments in reducing the added risk of high cholesterol. I reiterated the role of maintaining regular follow-ups with oncology to monitor breast cancer in remission. Psychological support continuation was advised, along with potential engagement with social structures outside of her immediate caregiving context to alleviate emotional burdens. Lastly, the patient was advised on a future cholesterol re-evaluation in three months, with an emphasis on medication adherence and lifestyle adaptations. Patient Instructions - Begin simvastatin as prescribed, taking it every night before bed. - Adhere to a reduced cholesterol diet, limiting intake of high cholesterol foods such as egg yolks and managing fast food consumption. - Continue cessation of smoking. - Follow up with psychological counseling services as needed. - Return for blood work and re-evaluation of cholesterol levels in three months. - Attend regular screenings and follow-ups with cancer survivorship care. - Lifestyle adaptations advised to include smoking cessation and physical activity increase. Orders: Orders Hemoglobin A1c 3 Months E78.00 - Pure hypercholesterolemia, unspecified Lipid Panel 3 Months E78.00 - Pure hypercholesterolemia, unspecified Comprehensive Met. Panel 3 Months E78.00 - Pure hypercholesterolemia, unspecified Complete Blood Count Auto Diff 3 Months E78.00 - Pure hypercholesterolemia, unspecified Medications: New simvastatin 5 mg PO BEDTIME 30 tabs 4RF E78.00 - Pure hypercholesterolemia, unspecified
[2025-01-07 16:00] VITALS: BP 122/80; PULSE 104; TEMP 36.1; O2SAT 95; BMI 27.5
== END 2025-01-07 16:24 | disposition home or self-care (01) ==
LOC: HO.HMCH 15:51
PROVIDERS: PCP Internal Medicine; Visit Provider Internal Medicine
DX: K21.9 Gastro-esophageal reflux disease without esophagitis (principal); C50.912 Malignant neoplasm of unspecified site of left female breast; F33.9 Major depressive disorder, recurrent, unspecified; Z72.0 Tobacco use; E78.00 Pure hypercholesterolemia, unspecified

== ENCOUNTER → 2025-01-07 15:51 | Outpatient (BNVA) | payer OTHER, SELFPAY | PROVIDERS: PCP Internal Medicine; Visit Provider Internal Medicine | DX: C50.912 Malignant neoplasm of unspecified site of left female breast (principal); K21.9 Gastro-esophageal reflux disease without esophagitis; E78.00 Pure hypercholesterolemia, unspecified; F33.9 Major depressive disorder, recurrent, unspecified; Z72.0 Tobacco use | CPT/HCPCS: 99212 ==

== ENCOUNTER 2025-04-14 09:12 | Outpatient (REF) | payer OTHER, SELFPAY ==
[2025-04-14 09:31] LABS: MANUAL DIFF FLAG NO
[2025-04-14 09:36] LABS: Basophils Absolute Auto 0.1 X10*3/uL (0.0-0.2); Basophils Percent Auto 0.8 % (0-2); Eosinophils Absolute Auto 0.2 X10*3/uL (0.0-0.4); Eosinophils Percent Auto 2.4 % (0-4); Hematocrit 34.1 % (37.0-47.0); Hemoglobin 11.9 g/dl (12.0-16.0); Imm Gran Abs Auto 0.04 X10*3/uL (0.00-0.03); Imm Gran Pct Auto 0.6 % (0.0-0.4); Lymphocytes Absolute Auto 1.5 X10*3/uL (1.2-4.9); Lymphocytes Percent Auto 23.1 % (20-40); Mean Corpuscular HGB Conc 34.9 g/dl (31.0-35.0); Mean Corpuscular Hemoglobin 29.1 pg (27.0-33.0); Mean Corpuscular Volume 83.4 fL (80.0-98.0); Monocytes Absolute Auto 0.6 X10*3/uL (0.1-1.2); Monocytes Percent Auto 9.2 % (2-11); Neutrophils Absolute Auto 4.2 x10*3/uL (2.0-8.3); Neutrophils Percent Auto 63.9 % (45-73); Platelet Count 241 X10*3/uL (160-400); Red Blood Count 4.09 X10*6/uL (4.20-5.50); White Blood Count 6.6 X10*3/uL (4.8-10.8)
--- OUTSIDE RECORDS SUMMARY | 2025-04-14 09:55 | XMS_ITS | Clinical Summary ---
Author Organization [facility] it Address [address] [place] [address] Care Team Providers Care Health And Safety Advisor Name Role Phone Unavailable Primary Care Provider Unavailabl e Social History Tobacco Use Types Packs/Day Years Used Date Smoking Tobacco: Never Assessed Comments Unknown Sex and Gender Information Value Date Recorded Sex Assigned at Not on file Legal Sex Female 4:16 AM EST Gender Identity Not on file Sexual Orientation Not on file Plan of Treatment Health Maintenance Due Date Last Done Comments Breast Cancer Screening 1966 DTaP,Tdap,and Td Vaccines (1 - Tdap) 1985 Hepatitis B Vaccines (1 of 3 - 19+ 3-dose series) 1985 Cervical Cancer Screening: P ap Smear 1987 Pneumococcal Vaccine: 50+ Ye ars (1 of 1 - PCV) 01/03/2016 Zoster Vaccines (1 of 2) 01/03/2016 Colorectal Cancer Screening: Colonoscopy 09/25/2022 Depression Screening 09/25/2022 HIV Screening 09/25/2022 Hepatitis C Screening 09/25/2022 Social Influencers of Health Screening 09/25/2022 COVID-19 Vaccine ( - 2023-2 5 season) 2024 Influenza Vaccine (Season Ended) 2025 RSV Immunization Adult Patie nts (1 - 1-dose 75+ series) 2041 HIB Vaccines Aged Out No longer eligi ble based on patient's age to complete this topic HPV Vaccines Aged Out No longer eligi ble based on patient's age to complete this topic Hepatitis A Vaccines Aged Out No long er eligible based on patient's age to complete this topic IPV Vaccines Aged Out No longer eligi ble based on patient's age to complete this topic MMR Vaccines Aged Out No longer eligi ble based on patient's age to complete this topic Meningococcal ACWY Vaccine Aged Out N o longer eligible based on patient's age to complete this topic Meningococcal B Vaccine Aged Out No l onger eligible based on patient's age to complete this topic Pneumococcal Vaccine: Pediat rics (0 to 5 Years) and At-Risk Patients (6 to 64 Years) Aged Out No longer eligible b ased on patient's age to complete this topic RSV Immunization Patients Un antonella 20 months Aged Out No longer eligible b ased on patient's age to complete this topic Varicella Vaccines Aged Out No longer eligible based on patient's age to complete this topic
[2025-04-14 10:05] LABS: Alanine Aminotransferase 16 U/L (0-31); Albumin Level 4.2 g/dL (3.5-5.0); Alkaline Phosphatase 105 U/L (39-117); Anion Gap 10 (12-20); Aspartate Amino Transferase 22 U/L (5-31); Bilirubin Total 0.4 mg/dL (0.0-1.0); Blood Urea Nitrogen 15 mg/dL (9-16); Calcium 9.5 mg/dL (8.4-10.2); Carbon Dioxide 26 mmol/L (22-29); Chloride 110 mmol/L (96-108); Cholesterol 208 mg/dL (<200); Estimated Glomerular Filt Rate > 60; Glucose Random 96 mg/dL (60-115); HDL Cholesterol 37 mg/dL (>40); LDL Cholesterol Calculated 131 mg/dL (<100); Sodium 142 mmol/L (135-145); Total Protein 6.6 g/dL (6.5-8.0); Triglycerides 203 mg/dL (<150)
[2025-04-14 10:14] LABS: Estimated Average Glucose 111 mg/dL; Hemoglobin A1c % 5.5 % (<6.0); Total Hemoglobin (HGBA1C) 3190.2422 umol/L
== END 2025-04-14 09:13 | disposition home or self-care (01) ==
LOC: HO.LAB 09:12
PROVIDERS: PCP Internal Medicine; Visit Provider Internal Medicine
DX: E78.00 Pure hypercholesterolemia, unspecified (principal)
CPT/HCPCS: 36415; 80053; 80061; 83036; 85025

== ENCOUNTER 2025-04-15 08:36 | Outpatient (AMB) | payer OTHER, SELFPAY ==
--- NOTE | 2025-04-15 08:41 | A.OFFPC_ITS ---
Vital Signs 04/15/25 08:42 Height 4 ft 11 in Weight 131 lb 2 oz BMI 26.5 BP 120/70 Blood Pressure Location Lt brachial Position Sitting Pulse 99 Pulse Source Pulse Oximeter Temp 97.1 F Temp Source Temporal Artery Scan Pulse Oximetry (%) 95 Oxygen Delivery Method Room Air Intake Visit Reasons: cholesterol Intake Note: Patient is here to follow up on Cholesterol. Banking Paralegal Required: No Scheduling Analyst: Not Required per policy Accompanied by: Self / Same As Patient Allergies No Known Allergies (No Known Allergies*) Allergy (Verified 04/15/25 08:42) Medication List - Last Reconciled 04/15/25 by Desiree Woodson PA-C buspirone 5 mg PO BID fluoxetine 10 mg PO BEDTIME hydrocortisone 2.5% (Proctosol HC) 1 appl MD BID-QID PRN lidocaine 5% (Lidoderm) 1 patch topical DAILY lorazepam 0.5 mg PO DAILY PRN miscellaneous medical supply 1 ea miscellaneous ONCE omeprazole 20 mg PO DAILY sennosides-docusate sodium 8.6-50 mg (Senna-S) 3 tab-caps (3 x 8.6-50 mg) PO BEDTIME 90 days simvastatin 5 mg PO BEDTIME trazodone 50 mg PO BEDTIME zolpidem 5 mg PO BEDTIME PRN Tobacco use date assessed: 04/15/25 Dental Screening Dental Screen Date: 01/07/25 HPI cholesterol HPI Details 60-year-old female with past medical his tory of tobacco abuse, atrial fibrillation, invasive ductal carcinoma of the left breast, GERD, hypercholesterolemia, depression, anxiety, impaired glucose tolerance last seen 12/[address] Krause coming in for follow up. Presenting with follow-up on cholesterol levels and preventative care. The patient's triglyceride levels were noted to be 203 mg/dL, which is above the desired level of less than 150 mg/dL. The patient's LDL cholesterol has improved from 152 mg/dL to 131 mg/dL, although it remains slightly above the target of less than 130 mg/dL. The patient experienced an episode of dizziness and nausea approximately one to two months ago, which led to a fall, but has not had any recurrence since. Denies any pain following the fall. [facility] Medical History Dysphagia Tobacco abuse Tubular adenoma of colon Recurrent major depression Carpal tunnel syndrome of left wrist Neuropathy of left ulnar nerve at wrist Lumbar degenerative disc disease Renal calculus, left Right ovarian cyst Stress incontinence Hypercholesterolemia GERD (gastroesophageal reflux disease) Generalized anxiety disorder Invasive ductal carcinoma of left breast Paroxysmal atrial fibrillation Insomnia Surgical History History of endoscopy Hx of colonoscopy History of esophagogastroduodenoscopy (EGD) Hx of dilation and curettage History of lumpectomy of left breast Family History Father Liver cancer Substance abuse Mother Heart disease Diabetes mellitus HTN (hypertension) CVD (cardiovascular disease) Brother HTN (hypertension) CVD (cardiovascular disease) Substance abuse Sister Breast cancer CVD (cardiovascular disease) Social History Housing: Apartment Alcohol intake: never Comment: medicated in pacu Patient Tobacco Use Status: Former Tobacco user Tobacco use type: Cigarette Cigarettes Per Day: 3 Years Smoked: quit 05/2022 e-Cigarette/Vaping Use: Never Used Second Hand Smoke Exposure: Yes service: No Current occupational status: employed Gender identity: Female Cognitive needs: No Hearing needs: No Vision needs: Yes Female Reproductive History Menstrual Age of Menarche: 13 Questionnaire PHQ-9 Over the last 2 weeks, how often have you been bothered by any of the following problems? 1. Little interest or pleasure in doing things: several days 2. Feeling down, depressed, or hopeless: several days 3. Trouble falling or staying asleep, or sleeping too much: more than half the days 4. Feeling tired or having little energy: several days 5. Poor appetite or overeating: several days 6. Feeling bad about yourself - or that you are a failure or have let yourself or your family down: several days 7. Trouble concentrating on things, such as reading the newspaper or watching television: several days 8. Moving or speaking so slowly that other people could have noticed. Or the opposite - being so fidgety or restless that you have been moving around a lot more than usual: several days 9. Thoughts that you would be better off or of hurting yourself in some way: not at all Total score: 9 Depression Screening Interpretation: Positive Depression Screening Done: Yes Source: Developed by Drs. Vitaliy Elder, Obey Harry and colleagues, with an educational torri from [employer]. Thrive Questionnaire Date Thrive assessed: 01/07/25 I am a: Patient What is your living situation today?: I have a steady place to live Within the past 12 months, did the food you bought not last and you didn't have the money to get more?: I choose not to answer this question Within the past 12 months, did you worry whether your food would run out before you got money to buy more?: I choose not to answer this question Do you have trouble paying for medicines?: I choose not to answer this question Do you have trouble getting transportation to medical appointments?: No Do you have trouble paying your heating and electricity bill?: No Do you have trouble taking care of your child, family member or friend?: No Do you have trouble with day-to-day activities such as bathing, preparing meals, shopping, managing finances, etc.?: No Are you currently unemployed and looking for a job?: No Are you interested in more education?: No Please select the resources that you would like help with: None Currently or been in a relationship where the following occur: I choose not to answer THRIVE Score: 0 AUDIT C Alcohol Use Questionnaire (AUDIT-C) 1. How often do you have a drink containing alcohol?: Never Total Score: 0 SHAYY-7 AMB Questionnaire SHAYY-7 Date SHAYY - 7 assessed: 01/07/25 Feeling nervous, anxious, or on edge: 0 = Not at all Not being able to stop or control worryin = Several days Worrying too much about different things: 1 = Several days Trouble relaxin = Several days Being so restless that it is hard to sit still: 1 = Several days Becoming easily annoyed or irritable: 0 = Not at all Feeling afraid as if something awful might happen: 0 = Not at all Total SHAYY-7 score (0-4 normal; 5-9 mild; 10-14 moderate; 15-21 severe): 4 Source: Developed by Preeti Burton Kurt Kroenke and colleagues, with an educational torri from [employer]. Review of Systems Const Denies body aches, Denies chills, Denies fever(s), Denies headache(s) and Denies poor appetite Eyes Reports no additional complaints ENT Denies dizziness and Denies headache(s) Card Denies chest pain, Denies syncope, Denies lightheadedness and Denies dyspnea Resp Denies cough and Denies dyspnea GI Denies nausea and Reports vomiting (one episode two months ago ) Reports no additional complaints Musc Reports no additional complaints and Denies abnormal gait Skin/Breast Reports system reviewed and no additional complaints, except as documented Neuro Denies abnormal gait, Denies dizziness, Denies syncope and Denies headache(s) Psych Reports no additional complaints Physical exam (Primary Care) Vital Signs: Last Vital Signs Temp 97.1 F 04/15/25 08:42 Pulse 99 04/15/25 08:42 BP 120/70 04/15/25 08:42 Pulse Ox 95 04/15/25 08:42 Oxygen Delivery Method Room Air 04/15/25 08:42 BMI result Body Mass Index 26.5 Tobacco/Smoking Status: Tobacco use Status Tobacco use date assessed 04/15/25 04/15/25 08:46 Patient Tobacco Use Status Former Tobacco user 04/15/25 08:46 Tobacco use type Cigarette 04/15/25 08:46 e-Cigarette/Vaping Use Never Used 04/15/25 08:46 PHQ-9: PHQ-9 Score PHQ-9: Total score 9 04/15/25 08:46 Depression Screening Interpretation: Positive Thrive Assessment: Date of Thrive Assessment Date Thrive assessed 01/07/25 04/15/25 08:46 Currently or been in a relationship where the following occur: I choose not to answer Const General: cooperative, healthy appearing, comfortable and no acute distress Orientation/consciousness: patient oriented x3 HENMT Head: Yes normocephalic Ears: hearing grossly normal bilaterally General nose exam: Normal external nose present Eyes General: appearance normal, both eyes and all related structures Conjunctivae: conjunctivae normal Neck Neck: Yes full ROM and Yes no lymphadenopathy Resp Effort & Inspection: normal respiratory effort Auscultation: clear to auscultation bilaterally, no crackles, no rales, no rhonchi and no wheezes Cardio Rate: regular rate Rhythm: regular rhythm Skin General skin exam: no rashes or lesions noted Neuro General: patient oriented x3 Gait exam (Neuro): Normal gait present Extrem General: Yes normal to inspection, Yes full ROM and No edema Psych Affect: normal affect Attitude: cooperative Insight: Good insight present (Psych) Judgement: Good judgement present (Psych) Coding Level of Care Code Est Pt Level 3 (89036) Diagnoses Impaired glucose tolerance R73.02 Gastroesophageal reflux disease, unspecified whether esophagitis present K21.9 Esophagitis presence: esophagitis presence not specified Hypercholesterolemia E78.00 Overweight (BMI 25.0-29.9) E66.3 Assessment & Plan Assessment & Plan (1) Impaired glucose tolerance: Code(s): R73.02 - Impaired glucose tolerance (oral) Category: Medical Plan: Decrease the amount of carbohydrates such as pasta, bread, rice, and potatoes and limit the amount of sweets. Although fruits are generally healthy they should be eaten in moderation as they are still high in sugar. Last A1c 5.5% (2) GERD (gastroesophageal reflux disease): Comment: September 2023 Code(s): K21.9 - Gastro-esophageal reflux disease without esophagitis Category: Medical Qualifiers: Esophagitis presence: esophagitis presence not specified Qualified Code(s): K21.9 - Gastro-esophageal reflux disease without esophagitis Plan: Avoid trigger foods such as citrus, tomato products, soda, caffeine, spicy foods and other foods that may be irritating to your stomach. Avoid laying flat 3-4 hours after eating and elevate the head of the bed 30 degrees to prevent acid from moving into the esophagus. (3) Hypercholesterolemia: Code(s): E78.00 - Pure hypercholesterolemia, unspecified Category: Medical Plan: Avoid foods that are high in cholesterol such as red meat, fried foods, eggs and baked goods. Triglyceride goal of less than 150 and LDL goal of less than 130. Patient states she only took these simvastatin for 1 month. She would like to lower the cholesterol without the use of simvastatin and feels she has made good progress with her diet and exercise. Plan to repeat labs in 3 months and hold simvastatin at this time. (4) Overweight (BMI 25.0-29.9): Code(s): E66.3 - Overweight Category: Medical Plan: Healthy diet and regular exercise is encouraged. Noted 5 lb intentional weight loss since last visit Plan The patient will continue lifestyle modifications, including regular exercise and dietary changes, to manage cholesterol levels and improve overall health. A follow-up appointment is scheduled in three months to reassess cholesterol levels and determine if simvastatin therapy needs to be resumed. The patient is advised to monitor for any recurrence of dizziness or nausea and report any new symptoms. This note was constructed using voice recognition software. While every effort has been made to ensure accuracy and business development assistant, still areas may have been included sometimes these areas may affect the content or meeting of the given symptoms. Total time spent caring for the patient today was 15 minutes. This includes time spent before the visit reviewing the chart, time spent during the visit, and time spent after the visit and documentation. Patient was informed and verbally consented to the use of an ambient scribe for clinic note documentation during this visit. Orders: Orders Lipid Panel 3 Months E78.00 - Pure hypercholesterolemia, unspecified
[2025-04-15 08:42] VITALS: BP 120/70; PULSE 99; TEMP 36.2; O2SAT 95; BMI 26.5
--- OUTSIDE RECORDS SUMMARY | 2025-04-15 08:54 | XMS_ITS | Clinical Summary ---
Author Organization [facility] it Address [address] [place] [address] Care Team Providers Care Inspector Subassembly Name Role Phone Unavailable Primary Care Provider [...]
== END 2025-04-15 09:12 | disposition home or self-care (01) ==
LOC: HO.HMCH 08:37
PROVIDERS: PCP Internal Medicine
DX: R73.02 Impaired glucose tolerance (oral) (principal); K21.9 Gastro-esophageal reflux disease without esophagitis; E78.00 Pure hypercholesterolemia, unspecified; E66.3 Overweight

== ENCOUNTER 2025-04-15 09:14 | Outpatient (REF) | payer OTHER, SELFPAY ==
--- NOTE | ~2025-04-15 | MM_ITS ---
EXAMINATION: MM SCREENING DIGITAL BREAST TOMOSYNTHESIS, BILATERAL CLINICAL INFORMATION: Screening. Asymptomatic. History of left breast cancer status post lumpectomy. COMPARISON: Mammography: Comparison is made with available priors TECHNIQUE: Digital breast mammography with tomosynthesis is performed in both the craniocaudal and mediolateral oblique views along with computer-aided detection (CAD). FINDINGS: There are scattered areas of fibroglandular density (ACR BI-RADS breast composition Category b). Left lumpectomy changes are stable. There are no significant masses, abnormal calcifications, or other abnormalities. MM/MM tomosynthesis screening BI IMPRESSION: No mammographic evidence of malignancy. ASSESSMENT: BI-RADS BI-RADS 2 - Benign Findings RECOMMENDATION: Routine annual mammography screening. 1 year F/U This examination should not preclude the clinical evaluation of a suspicious palpable abnormality. This patient's information was entered into a reminder system with a target due date for their next mammogram. Electronically signed by: Samanta Mehta DO 04/18/2025 05:33 PM EDT
== END 2025-04-15 09:15 | disposition home or self-care (01) ==
LOC: HO.MAMMO 09:14
PROVIDERS: PCP Internal Medicine; Visit Provider Internal Medicine
DX: Z12.31 Encounter for screening mammogram for malignant neoplasm of breast (principal); R73.02 Impaired glucose tolerance (oral); K21.9 Gastro-esophageal reflux disease without esophagitis; E78.00 Pure hypercholesterolemia, unspecified; E66.3 Overweight
CPT/HCPCS: 77063; 77067; 99212

== ENCOUNTER → 2025-04-15 09:15 | Outpatient (BNV) | payer OTHER, SELFPAY | PROVIDERS: PCP Internal Medicine; Visit Provider Internal Medicine | DX: Z12.31 Encounter for screening mammogram for malignant neoplasm of breast (principal) | CPT/HCPCS: 77063; 77067 ==

== ENCOUNTER 2025-08-18 09:53 | Outpatient (REF) | payer OTHER, SELFPAY ==
[2025-08-18 11:10] LABS: Cholesterol 236 mg/dL (<200); HDL Cholesterol 45 mg/dL (>40); Triglycerides 236 mg/dL (<150)
--- OUTSIDE RECORDS SUMMARY | 2025-08-18 11:27 | XMS_ITS | Clinical Summary ---
Author Organization [facility] ity Address [address] [place] [address] Care Team Providers Care Silversmith Apprentice Name Role Phone Unavailable Primary Care Provider [...] 01/03/2016 Zoster Vaccines (1 of 2) 01/03/2016 Depression Screening 10/23/2024 COVID-19 Vaccine (1 - 2023-2 5 season) 2025 Influenza Vaccine (#1) 2025 RSV Immunization Adult Patie nts (1 [...]
--- OUTSIDE RECORDS SUMMARY | 2025-08-18 11:28 | XMS_ITS | Patient Health Record ---
Author Organization [employer] [facility] Address [address] [place] [address] Care Team Providers Care Heel Curver Name Role Phone BAILEY PANDA M.D. Primary Care Provider Terrie Rodriguez Unavailable [phone] Allergies No Known Allergies Reason For Referral No Information Medications Medication SIG (Take, Route, Frequency, Duration) Notes Start Date End Date Status Vitamin B-12 1000 MCG TAKE 1 TABLET BY M OUTH EVERY DAY Oral; Duration: 30 Active Folic Acid 1 MG TAKE 1 TABLET BY JOSÉ TH EVERY DAY Oral; Duration: 30 Active Vitamin C 500 MG as directed Orally Active Ferrous Sulfate 325 (65 Fe) MG TAKE 1 TABLET BY MOUTH EVERY DAY Oral; Duration: 30 Active traZODone HCl 100 MG TAKE 1 TABLET BY MO UTH EVERYDAY AT BEDTIME Oral; Duration: 30 Active Sertraline HCl 50 MG TAKE 1 TABLET BY MO UTH EVERY DAY Oral; Duration: 30 Active Social History Tobacco Use: Social History Observation Description Date Details (start date - stop date) Current Smoker NA - NA Tobacco Use/Smoking Question Answer Notes Are you a current smoker How often do you smoke cigarettes? every day How many cigarettes a day do you smoke? 5 or les s Alcohol Screen (Audit-C) Question Answer Notes Did you have a drink containing alcohol in the p ast year? No Points 0 Interpretation Negative Sexual History Question Answer Notes Had sex in the past 12 months (vaginal, oral, or anal)? No Problems Problem Type SNOMED Code ICD Code Onset Dates Problem Status W/U Status Risk Notes Problem Excessive and frequent menstruation (217682411) Excessive and frequent menstruation with regular cycle (N92.0) Active confirmed Problem Mild cervical dysplasia (983894932) Mild cervical dysplasia (N87.0) Active confirmed Problem Anemia due to chronic blood loss (disorder) (809576510) Iron deficiency anemia secondary to blood loss (chronic) (D50.0) Active confirmed Problem Endometriosis of uterus (39550903) Endometriosis of uterus (N80.0) Active confirmed Problem Amenorrhea (58105822) Amenorrhea, unspecified (N91.2) Active confirmed Problem Postcoital bleeding (55569865) Postcoital and contact bleeding (N93.0) Active confirmed Problem Abnormal vaginal bleeding (255006610) Other specified abnormal uterine and vaginal bleeding (N93.8) Active confirmed Problem Unspecified menopausal and perimenopausal disorder (N95.9) Active confirmed Problem History of dysplasia of cervix (172887099) Personal history of cervical dysplasia (Z87.410) Active confirmed Plan Of Treatment No Information Insurance Providers Payer Name Payer Address Payer Phone Subscriber Number Group Number Insured Name Patient Relationship to Insured Coverage Start Date Coverage End Date [facility] [address] [address] [place] [address] [id number] ROSANA MAJOR Self - patient is the insured Medical (General) History Medical History History ICD Code Malignant neoplasm of unspecified site o f left female breast C50.912 Amenorrhea, unspecified N91.2 Mild cervical dysplasia N87.0 Unspecified menopausal and perimenopausa l disorder N95.9 Personal history of cervical dysplasia Z 87.410 Postcoital and contact bleeding N93.0 Nocturia R35.1 Other specified abnormal uterine and vag inal bleeding N93.8 Cramp and spasm R25.2 Pelvic Pain R10.2 Excessive and frequent menstruation with regular cycle N92.0 Endometriosis of uterus N80.0 Other specified abnormal uterine and vag inal bleeding N93.8 Surgical History Surgery Date(Month/Year) Left Lumpectomy Colonoscopy Hospitalization History Reason Date(Month/Year) 4 Vaginal Deliveries
== END 2025-08-18 09:54 | disposition home or self-care (01) ==
LOC: HO.LAB 09:53
PROVIDERS: PCP Internal Medicine
DX: E78.00 Pure hypercholesterolemia, unspecified (principal)
CPT/HCPCS: 36415; 80061

== ENCOUNTER 2025-08-19 09:33 | Outpatient (AMB) | payer OTHER, SELFPAY ==
--- OUTSIDE RECORDS SUMMARY | 2025-08-14 09:00 | XMS_ITS | Encounter Summary ---
Author Organization [employer] [facility] Address [address] [place] [address] Care Team Providers Care Water Pollution Scientist Name Role Phone Unavailable Primary Care Provider Unavailabl e Reason for Visit * Reason Comments Extraction Ext on tooth# Encounter Details Date Type Department Care Team ([facility] st Contact Info) Description 08/14/2025 9:00 AM EDT Office Visit [facility] [address] [place] [address] Prateek Salinas DDS [address] [place] [address] Periodontal disease (Primary Dx) Social History Tobacco Use Types Packs/Day Years Used Date Smoking Tobacco: Every Day Cigarettes Passive Smoke Exposure: Current Smokeless Tobacco: Former Alcohol Use Standard Drinks/Week Comments Defer 0 (1 standard drink = 0.6 oz pur e alcohol) Comments Unknown Sex and Gender Information Value Date Recorded Sex Assigned at Female 06/26/2025 2:51 PM EDT Legal Sex Female 2:44 PM EDT Gender Identity Female 06/26/2025 2:51 PM EDT Sexual Orientation Straight 06/26/2025 2: 51 PM EDT documented as of this encounter Last Filed Vital Signs Vital Sign Reading Time Taken Comments Blood Pressure 136/78 08/14/2025 9:10 AM EDT Pulse 70 08/14/2025 9:10 AM EDT Temperature - - Respiratory Rate - - Oxygen Saturation - - Inhaled Oxygen Concentration - - Weight - - Height - - Body Mass Index - - documented in this encounter Progress Notes * Prateek Salinas DDS - 08/14/2025 9:00 AM EDT Patient ID: Ольга Norman is a 60 y.o. female. Time Out: Timeout Date: 08/14/25, Timeout Time: 906 (exton tooth#32) Location: [facility] Tooth: Mandible and #32 Procedure: Extraction Verified the above with patient, family law legal assistant, and provider. Confirmed via patient's chart, intraorally and by radiographs. Director Business Development: not applicable Chief Complaint Patient presents with Extraction Ext on tooth# 32 Medical Hx: Vitals: Blood pressure 136/78, pulse 70. Medical History[1] Medications: Encounter Medications[2] Consent Obtained: The risks, benefits, indications, potential complications, and alternatives were explained to the patient and informed consent was obtained with good understanding. Treatment Provided: Dental procedures in this visit D7140 - EXTRACTION, ERUPTED TOOTH OR EXPOSED ROOT (ELEVATION/FORCEPS REMOVAL) 32 (Completed) Service provider: Prateek Salinas DDS Billing provider: Prateek Salinas DDS [id number] - CASE PRESENTATION, DETAILED AND EXTENSIVE TREATMENT PLANNING (Completed) Service provider: Prateek Salinas DDS Billing provider: Prateek Salinas DDS Diagnosis: Periodontal disease, inadequate space Topical: 20% Benzocaine Anesthesia: 2% Lidocaine (Xylocaine) w/ 1:100,000 epinephrine Number of Cartridges: 3 Injection Type: Inferior alveolar nerve block, Long buccal nerve block, and Intrapapillary injection Confirmed profound anesthesia. Pharyngeal curtain and bite block placed. Removed tooth with elevators and forceps. Apices intact. Surgical Extraction: Routine # 32 Socket curetted & irrigated with sterile water. Compressed alveolar bone. Sutures: Chromic Gut All adjacent teeth intact. Hemostasis achieved. Complications: None. Pt. Tolerated procedure well. Written and verbal post-op instructions given. Patient discharged in stable condition; ambulatory, alert, and oriented. NV: F/U as needed / Cont. Exos. Clinical Quality Assurance Specialist: Sindy Kumar Dentist: Prateek Salinas DDS [1] Past Medical History: Diagnosis Date Anxiety Cancer (CMS/HCC) (HCC) Left Breast cancer free for 7 years Depression High cholesterol [2] Outpatient Encounter Medications as of 08/14/2025 Medication Sig Dispense Refill busPIRone (Buspar) 5 MG tablet Take 1 tablet by mouth 2 times daily. FLUoxetine (PROzac) 10 MG capsule take 1 capsule by mouth everyday at bedtime hydrocortisone (Anusol-HC) 2.5 % rectal cream INSERT 1 APPLICATION RECTALLY 2 TO 4 TIMES A DAY NEEDED FOR HEMORRHOIDS LORazepam (Ativan) 0.5 MG tablet Take 1 tablet by mouth Once per day. omeprazole (PriLOSEC) [address] capsule Take 1 capsule by mouth Once per day. traZODone (Desyrel) 50 MG tablet Take 50 mg by mouth if needed at bedtime. acetaminophen (Tylenol 8 Hour) 650 MG ER tablet Take 1 tablet (650 mg) by mouth every 8 (eight) hours if needed for mild pain. Do not crush, chew, or split. (Patient not taking: Reported on 08/14/2025) 30 tablet 0 ibuprofen 600 MG tablet Take 1 tablet (600 mg) by mouth every 6 (six) hours if needed for mild pain. (Patient not taking: Reported on 08/14/2025) 12 tablet 0 No facility-administered encounter medications on file as of 08/14/2025. documented in this encounter Plan of Treatment Upcoming Encounters Date Type Department Care Team (Late st Contact Info) Description 09/24/2025 9:00 AM EST Office Visit [facility] [address] [place] [address] Prateek Salinas DDS [address] [place] [address] documented as of this encounter Procedures Procedure Name Priority Date/Time Associated Diagnosis Comments 32 EXTRACTION, ERUPTED TOOTH OR EXPOSED ROOT (ELEVATION/FORCEPS REMOVAL) Routine 08/14/2025 9:00 AM EDT CASE PRESENTATION, DETAILED AND EXTENSIVE TREATMENT PLANNING Routine 08/14/2025 9:00 AM EDT documented in this encounter Visit Diagnoses Diagnosis Periodontal disease- Primary Unspecified gingival and periodontal disease documented in this encounter
[2025-08-19 09:41] VITALS: BP 124/88; PULSE 91; TEMP 36.2; O2SAT 98; BMI 26.9
--- NOTE | 2025-08-19 09:41 | A.OFFPC_ITS ---
Vital Signs 08/19/25 09:41 Height 4 ft 11 in Weight 133 lb 6 oz BMI 26.9 BP 124/88 Blood Pressure Location Lt brachial Position Sitting Pulse 91 Pulse Source Pulse Oximeter Temp 97.1 F Temp Source Temporal Artery Scan Pulse Oximetry (%) 98 Oxygen Delivery Method Room Air Intake Visit Reasons: f/u HLD Allergies No Known Allergies (No Known Allergies*) Allergy (Verified 08/19/25 09:43) Medication List - Last Reconciled 08/19/25 by Marlyn Krause MD buspirone 5 mg PO BID fluoxetine 10 mg PO BEDTIME hydrocortisone 2.5% (Proctosol HC) 1 appl MS BID-QID PRN ibuprofen 400 mg PO Q8H PRN lidocaine 5% (Lidoderm) 1 patch topical DAILY lorazepam 0.5 mg PO DAILY PRN miscellaneous medical supply 1 ea miscellaneous ONCE omeprazole 20 mg PO DAILY sennosides-docusate sodium 8.6-50 mg (Senna-S) 3 tab-caps (3 x 8.6-50 mg) PO BEDTIME 90 days simvastatin 10 mg PO BEDTIME trazodone 50 mg PO BEDTIME zolpidem 5 mg PO BEDTIME PRN Tobacco use date assessed: 08/19/25 Dental Screening Dental Screen Date: 08/19/25 Did you have a dental visit in the last 12 months?: Yes Did you have a dental problem in the last 6 months where you did not have access to dental care?: No Was dental information given to patient?: Patient has dentist [facility] Medical History Dysphagia Tobacco abuse Tubular adenoma of colon Recurrent major depression Carpal tunnel syndrome of left wrist Neuropathy of left ulnar nerve at wrist Lumbar degenerative disc disease Renal calculus, left Right ovarian cyst Stress incontinence Hypercholesterolemia GERD (gastroesophageal reflux disease) Generalized anxiety disorder Invasive ductal carcinoma of left breast Paroxysmal atrial fibrillation Insomnia Surgical History History of endoscopy Hx of colonoscopy History of esophagogastroduodenoscopy (EGD) Hx of dilation and curettage History of lumpectomy of left breast Family History Father Liver cancer Substance abuse Mother Heart disease Diabetes mellitus HTN (hypertension) CVD (cardiovascular disease) Brother HTN (hypertension) CVD (cardiovascular disease) Substance abuse Sister Breast cancer CVD (cardiovascular disease) Social History Housing: Apartment Alcohol intake: never Comment: medicated in pacu Patient Tobacco Use Status: Former Tobacco user Tobacco use type: Cigarette Cigarettes Per Day: 3 Years Smoked: quit 05/2022 e-Cigarette/Vaping Use: Never Used Second Hand Smoke Exposure: Yes service: No Current occupational status: employed Gender identity: Female Cognitive needs: No Hearing needs: No Vision needs: Yes Female Reproductive History Menstrual Age of Menarche: 13 Questionnaire PHQ-9 Over the last 2 weeks, how often have you been bothered by any of the following problems? 1. Little interest or pleasure in doing things: several days 2. Feeling down, depressed, or hopeless: several days 3. Trouble falling or staying asleep, or sleeping too much: more than half the days 4. Feeling tired or having little energy: several days 5. Poor appetite or overeating: several days 6. Feeling bad about yourself - or that you are a failure or have let yourself or your family down: several days 7. Trouble concentrating on things, such as reading the newspaper or watching television: several days 8. Moving or speaking so slowly that other people could have noticed. Or the o pposite - being so fidgety or restless that you have been moving around a lot more than usual: several days 9. Thoughts that you would be better off or of hurting yourself in some way: not at all Total score: 9 Depression Screening Interpretation: Positive Depression Screening Done: Yes Source: Developed by Drs. Vitaliy Elder, Preeti Orozco, Obey Pitts and colleagues, with an educational torri from [employer]. Thrive Questionnaire Date Thrive assessed: 04/15/25 I am a: Patient What is your living situation today?: I have a steady place to live Within the past 12 months, did the food you bought not last and you didn't have the money to get more?: I choose not to answer this question Within the past 12 months, did you worry whether your food would run out before you got money to buy more?: I choose not to answer this question Do you have trouble paying for medicines?: I choose not to answer this question Do you have trouble getting transportation to medical appointments?: No Do you have trouble paying your heating and electricity bill?: No Do you have trouble taking care of your child, family member or friend?: No Do you have trouble with day-to-day activities such as bathing, preparing meals, shopping, managing finances, etc.?: No Are you currently unemployed and looking for a job?: No Are you interested in more education?: No Please select the resources that you would like help with: None Currently or been in a relationship where the following occur: I choose not to answer THRIVE Score: 0 AUDIT C Alcohol Use Questionnaire (AUDIT-C) 1. How often do you have a drink containing alcohol?: Never 3. How often do you have six or more drinks on one occasion?: Never Total Score: 0 SHAYY-7 AMB Questionnaire SHAYY-7 Date SHAYY - 7 assessed: 01/07/25 Feeling nervous, anxious, or on edge: 0 = Not at all Not being able to stop or control worryin = Several days Worrying too much about different things: 1 = Several days Trouble relaxin = Several days Being so restless that it is hard to sit still: 1 = Several days Becoming easily annoyed or irritable: 0 = Not at all Feeling afraid as if something awful might happen: 0 = Not at all Total SHAYY-7 score (0-4 normal; 5-9 mild; 10-14 moderate; 15-21 severe): 4 Source: Developed by Drs. Vitaliy Elder, Preeti Orozco, Obey Pitts and colleagues, with an educational torri from [employer]. Physical exam (Primary Care) Vital Signs: Last Vital Signs Temp 97.1 F 08/19/25 09:41 Pulse 91 08/19/25 09:41 BP 124/88 08/19/25 09:41 Pulse Ox 98 08/19/25 09:41 Oxygen Delivery Method Room Air 08/19/25 09:41 BMI result Body Mass Index 26.9 Tobacco/Smoking Status: Tobacco use Status Tobacco use date assessed 08/19/25 08/19/25 09:44 Patient Tobacco Use Status Former Tobacco user 08/19/25 09:44 Tobacco use type Cigarette 08/19/25 09:44 e-Cigarette/Vaping Use Never Used 08/19/25 09:44 PHQ-9: PHQ-9 Score PHQ-9: Total score 9 08/19/25 10:20 Depression Screening Interpretation: Positive Thrive Assessment: Date of Thrive Assessment Date Thrive assessed 04/15/25 08/19/25 09:44 Currently or been in a relationship where the following occur: I choose not to answer Const General: alert; No acute distress Eyes Conjunctivae: conjunctivae normal Resp Auscultation: clear to auscultation bilaterally Cardio Rate: regular rate Rhythm: regular rhythm GI Inspection: Yes normal to inspection Extrem General: Yes normal to inspection and No edema Coding Level of Care Code Est Pt Level 4 (78250) Complex EM visit Add On G2211 Diagnoses Paroxysmal atrial fibrillation I48.0 Hypercholesterolemia E78.00 Impaired glucose tolerance R73.02 Gastroesophageal reflux disease, unspecified whether esophagitis present K21.9 Esophagitis presence: esophagitis presence not specified Invasive ductal carcinoma of left breast C50.912 Tobacco abuse Z72.0 Assessment & Plan Assessment & Plan (1) Paroxysmal atrial fibrillation: Comment: 1x by EKG in 2013, no recurrence Code(s): I48.0 - Paroxysmal atrial fibrillation Category: Medical Plan: Stable (2) Hypercholesterolemia: Code(s): E78.00 - Pure hypercholesterolemia, unspecified Category: Medical Plan: Avoid fried foods, chicken skin, eggs, butter margarine, pastries and meat. Be it pork or beef they have a lot of cholesterol on simvastatin 5 mg once a day (3) Impaired glucose tolerance: Code(s): R73.02 - Impaired glucose tolerance (oral) Category: Medical Plan: Decrease the amount of carbohydrate intake, pasta, bread, rice and potatoes are all sugar and that is aside from all the sweet stuff, remember that fruits are good but they are Sweet also. (4) GERD (gastroesophageal reflux disease): Comment: September 2023 Code(s): K21.9 - Gastro-esophageal reflux disease without esophagitis Category: Medical Qualifiers: Esophagitis presence: esophagitis presence not specified Qualified Code(s): K21.9 - Gastro-esophageal reflux disease without esophagitis Plan: Avoid the foods that causes that usually spicy foods, tomato products, juices, coffee, soda and foods that your sensitive to. After eating do not lie down, allow 3-4 hours before in lie down. And keep the head of bed above 30 degrees to avoid the acid from going up. (5) Invasive ductal carcinoma of left breast: Comment: August 2017 radiation and tamoxifen Code(s): C50.912 - Malignant neoplasm of unspecified site of left female breast Category: Medical Plan: Continue to follow-up with Hematology-Oncology and up-to-date with mammogram (6) Tobacco abuse: Comment: stopped mid April 2022, still smoking 3x a day 06/2023 Code(s): Z72.0 - Tobacco use Category: Medical Plan: Patient is strongly advised to stop smoking patient point Plan History of Present Illness The patient is a 60-year-old overweight female presenting for a follow-up visit. Her past medical history is significant for atrial fibrillation, left breast cancer, GERD, hypercholesterolemia, depression, and lumbar degenerative disc disease. She is a current smoker. Regarding her hypercholesterolemia, the patient is currently taking simvastatin. Recent blood work from April 14, 2025, showed elevated cholesterol with an LDL of 144 mg/dL and triglycerides of 236 mg/dL, which are higher than previous values. Lab work also revealed mild anemia with a hemoglobin of 11.9 and hematocrit of 34.1, but normal electrolytes, renal function, blood sugar, and liver function. The patient's mother had high cholesterol. In terms of health maintenance, her mammogram is up-to-date as of August 2023, but she is due for a Pap smear, with her last one performed in 2020. She recently had her wisdom teeth removed. She continues to follow up with hematology/oncology. Health Maintenance The patient is due for a Pap smear, with her last one in 2020; an appointment was scheduled for May 27. She was advised to increase her daily water intake to three to four bottles to support kidney health. The shingles vaccine was recommended and is available through her pharmacy. The patient will continue to follow up with hematology/oncology. Social History - Tobacco Use: Patient is a current smoker, reporting she smokes two long cigarettes per day, reduced from a higher amount. - Diet: Reports eating a cup of ice cream at night and drinking two bottles of water daily. - Exercise: Reports walking every day. - Mental Health: Actively sees a counselor for therapy and reports that it is helping. Review of Systems - Oral/Dental: Reports pain following a recent wisdom tooth extraction. - All other systems reviewed and are negative. Physical Exam - Physical exam was not performed during this encounter. Results - Blood work from April 14, 2025: - CBC: Mild anemia with Hgb 11.9 and Hct 34.1. - CMP: Electrolytes, renal function, and blood sugar are normal. - LFTs: Normal. - Lipid Panel: - Total Cholesterol: 236 mg/dL. - LDL: 144 mg/dL. - Triglycerides: 236 mg/dL. - HDL: 45 mg/dL. Plan Patient was informed and verbally consented to the use of an ambient scribe for clinic note documentation during this visit. 1. Hypercholesterolemia The patient's hypercholesterolemia has worsened, with a total cholesterol of 236 mg/dL, LDL of 144 mg/dL, and triglycerides of 236 mg/dL, despite taking simvastatin 5 mg. Her HDL is low at 45 mg/dL. The plan is to increase simvastatin to 10 mg once a day at nighttime. A fasting lipid panel will be rechecked in three months. 2. Tobacco Use Disorder The patient continues to smoke two cigarettes per day despite previous counse ling. She was strongly advised to stop smoking. 3. Pain Management The patient requested medication for pain following a recent wisdom tooth extraction. A limited prescription for ibuprofen will be sent. The patient was counseled to take it only as needed due to risks of stomach upset and kidney problems. Discussion Notes I reviewed the patient's recent lab results with her, noting that her cholesterol levels have increased since her last check. We discussed that this can have a genetic component. I recommended increasing her simvastatin from 5 mg to 10 mg daily, which she agreed to. I informed her that we will recheck her fasting lipids in three months. We discussed her continued tobacco use, and I again strongly advised her to quit. In response to her request for pain medication after a dental procedure, I agreed to prescribe a limited amount of ibuprofen. I counseled her on the potential side effects, including stomach and kidney issues, and stressed that she should only take it when necessary. We addressed health maintenance, scheduling a Pap smear as she is overdue. I also discussed the benefits of the shingles vaccine and informed her it is available at the pharmacy. I advised her to increase her water intake for kidney health. She was instructed to call if any problems arise before her next appointment. Patient Instructions - Take simvastatin 10 mg by mouth once a day at nighttime. - If you have leftover 5 mg pills, you can take two pills at night until you get your new prescription for 10 mg pills. - You will need to have fasting blood work done in three months. - Do not eat or drink anything (except water) for 8 hours before your blood test. - It is very important that you stop smoking. - An appointment has been scheduled for your Pap smear on May 27 at 8:30 a.m. - For pain from your recent tooth removal, take the prescribed ibuprofen only when you truly need it. - Be aware that this medication can cause stomach or kidney problems. - Drink more water throughout the day, aiming for three to four bottles. - You can get the shingles vaccine at your pharmacy. - If you have any problems before your next appointment, please call the office. Orders: Orders Comprehensive Met. Panel 3 Months E78.00 - Pure hypercholesterolemia, unspe cified Vitamin B12 and Folate 3 Months E78.00 - Pure hypercholesterolemia, unspecified Lipid Panel 3 Months E78.00 - Pure hypercholesterolemia, unspecified Complete Blood Count Auto Diff 3 Months E78.00 - Pure hypercholesterolemia, unspecified Free T4 (Free Thyroxine) 3 Months E78.00 - Pure hypercholesterolemia, unspecified UA CC w/rflx Micro + Cult 3 Months E78.00 - Pure hypercholesterolemia, unspecified, R30.0 - Dysuria Medications: New ibuprofen 400 mg PO Q8H PRN 14 tabs 0RF pain Changed From simvastatin 5 mg PO BEDTIME 30 tabs 1RF E78.00 - Pure hypercholesterolemia, unspecified To simvastatin 10 mg PO BEDTIME 30 tabs 4RF E78.00 - Pure hypercholesterolemia, unspecified
--- OUTSIDE RECORDS SUMMARY | 2025-08-19 11:01 | XMS_ITS | Patient Health Record ---
Author Organization [employer] [facility] Address [address] [place] [address] Care Team Providers Care Survey Operations Director Name Role Phone BAILEY PANDA M.D. Primary Care Provider Terrie Rodriguez Unavailable [phone] Allergies No Known Allergies Reason For Referral [...] Risk Notes Problem Excessive and frequent menstruation (178323842) Excessive and frequent menstruation with regular cycle (N92.0) Active confirmed Problem Mild cervical dysplasia (331796616) Mild cervical dysplasia (N87.0) Active confirmed Problem Anemia due to chronic blood loss (disorder) (175321680) Iron deficiency anemia secondary to blood loss (chronic) (D50.0) Active confirmed Problem Endometriosis of uterus (12754416) Endometriosis of uterus (N80.0) Active confirmed Problem Amenorrhea (67543155) Amenorrhea, unspecified (N91.2) Active confirmed Problem Postcoital bleeding (92218269) Postcoital and contact bleeding (N93.0) Active confirmed Problem Abnormal vaginal bleeding (010357404) Other specified abnormal uterine and vaginal bleeding (N93.8) Active confirmed Problem Unspecified menopausal and perimenopausal disorder (N95.9) Active confirmed Problem History of dysplasia of cervix (301654807) Personal history of cervical dysplasia (Z87.410) Active confirmed Plan Of Treatment No Information Insurance Providers Payer Name Payer Address Payer Phone Subscriber Number Group Number Insured Name Patient Relationship to Insured Coverage Start Date Coverage End Date [facility] [address] [address] [place] [address] [id number] ROSANA MAJOR Self - patient is the [...]
--- OUTSIDE RECORDS SUMMARY | 2025-08-19 11:01 | XMS_ITS | Clinical Summary ---
Author Organization [facility] ity Address [address] [place] [address] Care Team Providers Care Print Line Supervisor Name Role Phone Unavailable Primary Care Provider [...]
--- OUTSIDE RECORDS SUMMARY | 2025-08-19 11:01 | XMS_ITS | Clinical Summary ---
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 06/06/20 25 Active FLUoxetine (PROzac) 10 MG capsule take 1 capsule by mouth everyday at bedtime 06/06/20 25 Active hydrocortison e (Anusol-HC) 2.5 % rectal cream INSERT 1 APPLICATION RECTALLY 2 TO 4 TIMES A DAY NEEDED FOR HEMORRHOIDS 04/30/20 25 Active LORazepam (Ativan) 0.5 MG tablet Take 1 tablet by mouth Once per day. 04/29/20 25 Active omeprazole (PriLOSEC) [address] capsule Take 1 capsule by mouth Once per day. 04/03/20 25 Active traZODone (Desyrel) 50 MG tablet Take 50 mg by mouth if needed at bedtime. 06/06/20 25 Active ibuprofen 600 MG tablet Take 1 tablet (600 mg) by mouth every 6 (six) hours if needed for mild pain. 12 tablet 07/18/20 25 Active Additional Information Patient not taking.Reported on 08/14/2025 amoxicillin (Amoxil) 500 MG capsule Take 1 capsule (500 mg) by mouth every 8 (eight) hours for 7 days. 21 capsule 08/14/20 25 025 Active acetaminophen (Tylenol 8 Hour) 650 MG ER tablet Take 1 tablet (650 mg) by mouth every 8 (eight) hours if needed for mild pain. Do not crush, chew, or split. 30 tablet 10/23/20 25 Active acetaminophen (Tylenol 8 Hour) 650 MG ER tablet Take 1 tablet (650 mg) by mouth every 8 (eight) hours if needed for mild pain. Do not crush, chew, or split. 30 tablet 07/18/20 25 025 Discontinued(Re order (will not trigger notification to Pharmacy)) amoxicillin (Amoxil) 500 MG capsule Take 1 capsule (500 mg) by mouth every 8 (eight) hours for 7 days. 21 capsule 07/18/20 25 025 Active Problems Problem Noted Date Diagnosed Date Alveolitis of maxilla 07/18/2025 Localized chronic severe periodontitis Stage 3 grade B generalized periodontitis per AAP/EFP 2017 classification 06/27/2025 Stage 4 grade B localized pe riodontitis per AAP/EFP 2017 classification 06/27/2025 Dental calculus 06/27/2025 Missing teeth, acquired 06/27/2025 Pain, dental 06/26/2025 Periodontal disease 06/26/2025 Encounters Date Type Department Care Team Description 08/14/2025 9:00 AM EDT Office Visit [facility] [address] [place] [address] Prateek Salinas DDS Periodontal disease (Primary Dx) 07/18/2025 8:00 AM EDT Office Visit [facility] [address] [place] [address] Prateek Salinas DDS Alveolitis of maxilla (Primary Dx) 07/14/2025 9:00 AM EDT Office Visit [facility] [address] [place] [address] Prateek Salinas DDS Localized chronic severe periodontitis (Primary Dx) 06/27/2025 2:00 PM EDT Office Visit [facility] [address] [place] [address] Marita Roberts Localized chronic severe periodontitis (Primary Dx); Stage 3 grade B generalized periodontitis per AAP/EFP 2017 classification; Stage 4 grade B localized periodontitis per AAP/EFP 2017 classification; Dental calculus; Missing teeth, acquired 06/26/2025 3:30 PM EDT Office Visit [facility] [address] [place] [address] Prateek Salinas DDS Pain, dental (Primary Dx); Periodontal disease 06/26/2025 Travel from Last 3 Months Social History Tobacco Use Types Packs/Day Years Used Date Smoking Tobacco: Every Day Cigarettes Passive Smoke Exposure: Current Smokeless Tobacco: Former Tobacco Cessation:Ready to Q uit: Not Asked; Counseling Given: Not Answered Alcohol Use Standard Drinks/Week Comments Defer 0 (1 standard drink = 0.6 oz pur e alcohol) Comments Unknown Sex and Gender Information Value Date Recorded Sex Assigned at Female 06/26/2025 2:51 PM EDT Legal Sex Female 2:44 PM EDT Gender Identity Female 06/26/2025 2:51 PM EDT Sexual Orientation Straight 06/26/2025 2: 51 PM EDT Last Filed Vital Signs Vital Sign Reading Time Taken Comments Blood Pressure 136/78 08/14/2025 9:10 AM EDT Pulse 70 08/14/2025 9:10 AM EDT Temperature - - Respiratory Rate - - Oxygen Saturation - - Inhaled Oxygen Concentration - - Weight - - Height - - Body Mass Index - - Plan of Treatment Upcoming Encounters Date Type Department Care Team (Late st Contact Info) Description 09/24/2025 9:00 AM EST Office Visit [facility] [address] [place] [address] Prateek Salinas DDS [address] [place] [address] Health Maintenance Due Date Last Done Comments CT Colonography 1966 Colonoscopy 1966 Colorectal Cancer Screening 1966 Depression Screening 1966 FIT DNA/Cologuard 1966 FIT 1966 FOBT 1966 HIV Screening 1966 Lipid Panel 1966 SDOH Screening 1966 Sigmoidoscopy 1966 Disability Screening 1966 Alcohol/Substance Use Screening 1978 Hepatitis C Screening 01/03/1984 Hepatitis B Vaccines (1 of 3 - 19+ 3-dose series) 1985 Pneumococcal Vaccine: 50+ Years (1 of 2 - PCV) 1985 Pap Smear 1987 Cervical Cancer Screening 01/03/1996 HPV/Cotest 01/03/1996 Mammogram 2006 Zoster Vaccines (1 of 2) 01/03/2016 DTaP/Tdap/Td Vaccines (1 - Tdap) 07/02/2022 07/01/2022 COVID-19 Vaccine (1 - 2023-2 5 season) 2025 Influenza Vaccine (#1) 2025 Dental Oral Exam 12/26/2025 06/27/2025 Dental Prophylaxis 12/26/2025 06/27/2025 Dental X-Ray: Bitewings 06/28/2026 06/27/2025 Tobacco Screening 08/14/2026 08/14/2025 Dental X-Ray: Full Mouth 06/28/2028 025, 06/26/2025, 07/19/2012 RSV Patients and Patients Aged 60 years or older (1 - 1-dose 75+ series) 2041 HIB [...] patient's age to complete this topic Meningococcal Vaccine Aged Out No rogelio rodriguez eligible based on patient's age to complete this topic RSV under 20 months Aged Out No longe r eligible based on patient's age to complete this topic Rotavirus Vaccines Aged Out No longer eligible based on patient's age to complete this topic Procedures Procedure Name Priority Date/Time Associated Diagnosis Comments CASE PRESENTATION, DETAILED AND EXTENSIVE TREATMENT PLANNING Routine 08/14/2025 9:00 AM EDT 32 EXTRACTION, ERUPTED TOOTH OR EXPOSED ROOT (ELEVATION/FORCEPS REMOVAL) Routine 08/14/2025 9:00 AM EDT NO CHARGE VISIT Routine 07/18/2025 8:00 AM EDT CASE PRESENTATION, DETAILED AND EXTENSIVE TREATMENT PLANNING Routine 07/14/2025 9:00 AM EDT 3 EXTRACTION, ERUPTED TOOTH OR EXPOSED ROOT (ELEVATION/FORCEPS REMOVAL) Routine 07/14/2025 9:00 AM EDT Localized chronic severe periodontitis 1 EXTRACTION, ERUPTED TOOTH OR EXPOSED ROOT (ELEVATION/FORCEPS REMOVAL) Routine 07/14/2025 9:00 AM EDT Localized chronic severe periodontitis PERIODIC ORAL EVALUATION - ESTABLISHED PATIENT Routine 06/27/2025 2:00 PM EDT CASE PRESENTATION, DETAILED AND EXTENSIVE TREATMENT PLANNING Routine 06/27/2025 2:00 PM EDT Localized chronic severe periodontitis Stage 3 grade B generalized periodontitis per AAP/EFP 2017 classification Stage 4 grade B localized periodontitis per AAP/EFP 2017 classification Dental calculus INTRAORAL - COMPLETE SERIES OF RADIOGRAPHIC IMAGES Routine 06/27/2025 2:00 PM EDT Localized chronic severe periodontitis Stage 3 grade B generalized periodontitis per AAP/EFP 2017 classification Stage 4 grade B localized periodontitis per AAP/EFP 2017 classification Dental calculus ORAL HYGIENE INSTRUCTIONS Routine 06/27/2025 2:00 PM EDT Localized chronic severe periodontitis Stage 3 grade B generalized periodontitis per AAP/EFP 2017 classification Stage 4 grade B localized periodontitis per AAP/EFP 2017 classification Dental calculus CASE PRESENTATION, DETAILED AND EXTENSIVE TREATMENT PLANNING Routine 06/27/2025 2:00 PM EDT Localized chronic severe periodontitis Stage 3 grade B generalized periodontitis per AAP/EFP 2017 classification Stage 4 grade B localized periodontitis per AAP/EFP 2017 classification Dental calculus PROPHYLAXIS - ADULT Routine 06/27/2025 2 :00 PM EDT Stage 3 grade B generalized periodontitis per AAP/EFP 2017 classification Dental calculus 3 B(V) COMPOSITE FILLING Routine 06/27/2025 12:00 AM EDT 14 MOD COMPOSITE FILLING Routine 06/27/2025 12:00 AM EDT 5 (V) COMPOSITE FILLING Routine 06/27/2025 12:00 AM EDT 4 MO COMPOSITE FILLING Routine 12:00 AM EDT 32 O AMALGAM FILLING Routine 06/27/2025 12:00 AM EDT 31 ELLEN AMALGAM FILLING Routine 06/27/2025 12:00 AM EDT 29 O AMALGAM FILLING Routine 06/27/2025 12:00 AM EDT 28 O AMALGAM FILLING Routine 06/27/2025 12:00 AM EDT 21 O AMALGAM FILLING Routine 06/27/2025 12:00 AM EDT 20 O AMALGAM FILLING Routine 06/27/2025 12:00 AM EDT 19 ELLEN AMALGAM FILLING Routine 06/27/2025 12:00 AM EDT 18 O AMALGAM FILLING Routine 06/27/2025 12:00 AM EDT 16 O AMALGAM FILLING Routine 06/27/2025 12:00 AM EDT 12 O AMALGAM FILLING Routine 06/27/2025 12:00 AM EDT 13 O AMALGAM FILLING Routine 06/27/2025 12:00 AM EDT 15 EXTRACTION Routine 06/27/2025 12:00 AM EDT 30 EXTRACTION Routine 06/27/2025 12:00 AM EDT 17 O AMALGAM FILLING Routine 06/27/2025 12:00 AM EDT 3 LO AMALGAM FILLING Routine 06/27/2025 12:00 AM EDT CASE PRESENTATION, DETAILED AND EXTENSIVE TREATMENT PLANNING Routine 06/26/2025 3:30 PM EDT PANORAMIC RADIOGRAPHIC IMAGE Routine 06/26/2025 3:30 PM EDT LIMITED ORAL EVALUATION - PROBLEM FOCUSED Routine 06/26/2025 3:30 PM EDT from Last 3 Months Insurance [facility] [employer] STAND ADULT
== END 2025-08-19 10:35 | disposition home or self-care (01) ==
LOC: HO.HMCH 09:34
PROVIDERS: PCP Internal Medicine; Visit Provider Internal Medicine
DX: I48.0 Paroxysmal atrial fibrillation (principal); C50.912 Malignant neoplasm of unspecified site of left female breast; E78.00 Pure hypercholesterolemia, unspecified; R73.02 Impaired glucose tolerance (oral); K21.9 Gastro-esophageal reflux disease without esophagitis; Z72.0 Tobacco use

== ENCOUNTER → 2025-08-19 09:33 | Outpatient (BNVA) | payer OTHER, SELFPAY | PROVIDERS: PCP Internal Medicine; Visit Provider Internal Medicine | DX: I48.0 Paroxysmal atrial fibrillation (principal); E78.00 Pure hypercholesterolemia, unspecified; R73.02 Impaired glucose tolerance (oral); K21.9 Gastro-esophageal reflux disease without esophagitis; C50.912 Malignant neoplasm of unspecified site of left female breast; R30.0 Dysuria; F17.210 Nicotine dependence, cigarettes, uncomplicated | CPT/HCPCS: 99212 ==